=== PATIENT | male | born 1950 | race Caucasian/White ===

== ENCOUNTER 2019-05-24 08:00 | Inpatient (IN) | payer MEDICARE ==
[2019-06-24] MEDS ORDERED: Scopolamine 1.5 MG Transdermal Patch TOP ONE (06:00)
[2019-06-24] MEDS ORDERED: Gabapentin 300 MG Cap PO ONE (06:00)
[2019-06-24] MEDS ORDERED: Dextrose 5%-Lactated Ringers 1,000 ML IV SCH ×2 (06:00→10:45)
[2019-06-24] MEDS ORDERED: Celecoxib 200 MG Cap PO ONE (06:00)
[2019-06-24] MEDS ORDERED: Acetaminophen 500 MG Tab PO ONE (06:00)
[2019-06-24] MEDS ORDERED: cefOXitin 2 GM Vial ONE (06:45)
[2019-06-24] MEDS ORDERED: Bupivacaine 0.5%/EPINEPHrine 1:200,000 50 ML MDV ONE (07:01)
[2019-06-24] MEDS ORDERED: Midazolam 1 MG/ML 2 ML SDV ONE (07:09)
[2019-06-24] MEDS ORDERED: Propofol 200 MG/20 ML SDV ONE (07:10)
[2019-06-24] MEDS ORDERED: Glycopyrrolate 0.2 MG/ML 5 ML MDV ONE (07:10)
[2019-06-24] MEDS ORDERED: fentaNYL 250 MCG/5 ML SDV ONE (07:10)
[2019-06-24] MEDS ORDERED: Ondansetron 4 MG/2 ML SDV ONE (07:10)
[2019-06-24] MEDS ORDERED: Neostigmine Methylsulfate 1 MG/ML 5 ML Syringe ONE (07:10)
[2019-06-24] MEDS ORDERED: Dexamethasone 4 MG/ML SDV ONE (07:10)
[2019-06-24] MEDS ORDERED: Rocuronium 50 MG/5 ML Vial ONE (07:10)
[2019-06-24] MEDS ORDERED: Succinylcholine 200 MG/10 ML MDV ONE (07:10)
[2019-06-24] MEDS ORDERED: cefOXitin 2 GM in Sodium Chloride 0.9% 50 ML IV ONE (07:15)
[2019-06-24] MEDS ORDERED: Magnesium Sulfate 3.9 GM in Sodium Chloride 0.9% 100 ML IV SCH (07:30)
[2019-06-24] MEDS ORDERED: Ketamine 50 MG in Sodium Chloride 0.9% 49.5 ML IV SCH (07:30)
[2019-06-24] MEDS ORDERED: Ketamine 500 MG/5 ML MDV IV SCH (07:30)
[2019-06-24] MEDS ORDERED: Sugammadex Sodium 200 MG/2 ML VIAL ONE (07:41)
[2019-06-24] MEDS ORDERED: ePHEDrine 50 MG/ML SDV ONE (08:17)
[2019-06-24] MEDS ORDERED: hydrOXYzine HCL 100 MG/2 ML SDV IM ONE (09:20)
[2019-06-24] MEDS ORDERED: Insulin Lispro 100 Unit/ML 3 ML KwikPen SUBCUT ONE (09:30)
[2019-06-24] MEDS ORDERED: Glucagon,Human Recombinant 1 MG Vial IM PRN (10:43)
[2019-06-24] MEDS ORDERED: 50% Dextrose in Water 50 ML Syringe IVPUSH PRN (10:43)
[2019-06-24] MEDS ORDERED: Cyclobenzaprine 10 MG Tab PO PRN (10:43)
[2019-06-24] MEDS ORDERED: Ondansetron 4 MG/2 ML SDV IVPUSH PRN (10:43)
[2019-06-24] MEDS ORDERED: Acetaminophen 500 MG Tab PO PRN (10:43)
[2019-06-24] MEDS ORDERED: diphenhydrAMINE 50 MG/ML SDV IVPUSH PRN (10:43)
[2019-06-24] MEDS ORDERED: HYDROmorphone 0.5 MG/0.5 ML Syringe IVPUSH PRN (10:43)
[2019-06-24] MEDS ORDERED: Insulin Lispro 100 Unit/ML 3 ML KwikPen SUBCUT PRN (10:43)
[2019-06-24] MEDS ORDERED: Metoclopramide 10 MG/2 ML SDV IVPUSH PRN (10:43)
[2019-06-24] MEDS ORDERED: Labetalol 20 MG/4 ML Syringe IVPUSH PRN (10:43)
[2019-06-24] MEDS ORDERED: HYDROmorphone 1 MG/ML Syringe IV PRN (10:43)
[2019-06-24] MEDS ORDERED: hydrOXYzine HCL 100 MG/2 ML SDV IM PRN (10:43)
[2019-06-24] MEDS: Lactated Ringers 1,000 ML IV SCH (11:42)
[2019-06-24] MEDS ORDERED: cefOXitin 2 GM in Sodium Chloride 0.9% 50 ML IV SCH (14:00)
[2019-06-24] MEDS: oxyCODONE 5 MG Tab PO PRN ×2 (14:28→21:39)
[2019-06-24] MEDS: cefOXitin 2 GM in Premix Bag 1 BAG IV SCH ×2 (14:28→20:05)
[2019-06-24] MEDS: Gabapentin 250 MG/5 ML Solution ML 470 ML Bottle PO SCH ×2 (14:28→21:38)
[2019-06-24] MEDS: Pantoprazole 40 MG Vial IVPUSH SCH (14:28)
[2019-06-24] MEDS: Acetaminophen 500 MG Tab PO SCH ×2 (14:29→21:44)
[2019-06-24] MEDS: MVI, Adult with Vitamin K 10 ML, Thiamine 200 MG, Chromium/Copper/Mang/Selen/Zn 1 ML in... IV SCH ×4 (17:56)
[2019-06-24] MEDS: Heparin Sodium 5,000 Units/ML Vial SUBCUT SCH (17:56)
[2019-06-24] MEDS: hydrALAZINE 25 MG Tab PO SCH (21:39)
[2019-06-24] MEDS: Labetalol 100 MG Tab PO SCH (21:44)
[2019-06-25] MEDS: cefOXitin 2 GM in Premix Bag 1 BAG IV SCH (02:45)
[2019-06-25] MEDS ORDERED: Iopamidol 612 MG/ML 50 ML SDV PO STA (02:52)
[2019-06-25] MEDS: Heparin Sodium 5,000 Units/ML Vial SUBCUT SCH ×2 (03:00→15:58)
[2019-06-25] MEDS: Lactated Ringers 1,000 ML IV SCH ×2 (03:36→13:02)
--- NOTE | 2019-06-25 04:27 | CRLCR ---
Indication: Status post Prashanth-en-Y Technique: Two-view abdomen Comparison: None Findings/Impression: : Two views of the abdomen were obtained after administration of oral contrast material. Oral contrast is seen within the distal esophagus, gastric pouch, and proximal small bowel. No evidence for extravasated oral contrast on the static images. SIDNEY drain projects in the left upper quadrant. Status post ORIF lower lumbar spine. Dictated by Nguyen Cruz MD @ Jun 25 2019 4:23AM Signed by Dr. Nguyen Cruz @ Jun 25 2019 4:25AM
[2019-06-25] MEDS: Acetaminophen 500 MG Tab PO SCH ×3 (05:21→21:37)
[2019-06-25] MEDS: hydrALAZINE 25 MG Tab PO SCH ×2 (08:40→21:34)
[2019-06-25] MEDS: Celecoxib 200 MG Cap PO SCH ×2 (08:41→21:37)
[2019-06-25] MEDS: Aspirin 81 MG Tab.EC PO SCH (08:41)
[2019-06-25] MEDS: Labetalol 100 MG Tab PO SCH ×2 (08:42→21:37)
[2019-06-25] MEDS: NIFEdipine 30 MG Tab.ER PO SCH (08:42)
[2019-06-25] MEDS: Gabapentin 250 MG/5 ML Solution ML 470 ML Bottle PO SCH ×3 (08:43→21:45)
[2019-06-25] MEDS ORDERED: AMILORIDE PO SCH (09:00)
[2019-06-25] MEDS ORDERED: HYDROmorphone 2 MG Tab PO PRN (10:27)
[2019-06-25] MEDS ORDERED: Dextrose 5%-Lactated Ringers 1,000 ML IV SCH (10:30)
[2019-06-25] MEDS: SCOPOLAMINE PATCH CHECK TOP SCH (10:30)
[2019-06-25] MEDS ORDERED: Lactated Ringers 1,000 ML IV SCH (10:30)
[2019-06-25] MEDS: AMILORIDE 5 MG PO SCH (11:10)
[2019-06-25] MEDS: Pantoprazole 40 MG Vial IVPUSH SCH (15:59)
[2019-06-25] MEDS: MVI, Adult with Vitamin K 10 ML, Thiamine 200 MG, Chromium/Copper/Mang/Selen/Zn 1 ML in... IV SCH ×4 (16:14)
[2019-06-25] MEDS ORDERED: Gabapentin 300 MG Cap PO ONE (21:46)
[2019-06-26] MEDS: Heparin Sodium 5,000 Units/ML Vial SUBCUT SCH (03:15)
[2019-06-26] MEDS: Acetaminophen 500 MG Tab PO SCH (04:59)
[2019-06-26] MEDS: Aspirin 81 MG Tab.EC PO SCH (08:34)
[2019-06-26] MEDS: Celecoxib 200 MG Cap PO SCH (08:34)
[2019-06-26] MEDS: hydrALAZINE 25 MG Tab PO SCH (08:34)
[2019-06-26] MEDS: AMILORIDE 5 MG PO SCH (08:35)
[2019-06-26] MEDS: Labetalol 100 MG Tab PO SCH (08:35)
[2019-06-26] MEDS: NIFEdipine 30 MG Tab.ER PO SCH (08:35)
[2019-06-26] MEDS: Gabapentin 250 MG/5 ML Solution ML 470 ML Bottle PO SCH (08:42)
[2019-06-26] MEDS ORDERED: Cyanocobalamin (Vitamin B12) 1,000 MCG/ML SDV IM ONE (09:00)
[2019-06-26] MEDS: SCOPOLAMINE PATCH CHECK TOP SCH (09:44)
[2019-06-26] MEDS ORDERED: Magnesium Hydroxide 400 MG/5 ML Susp 30 ML Cup PO ONE (10:00)
--- NOTE | 2019-06-26 14:50 | PN ---
DATE OF SERVICE: 06/25/2019 The patient has been afebrile with stable vital signs, status post a Prashanth-en-Y gastric bypass yesterday. We are little bit worried about his renal function, but his urine output has been satisfactory, and creatinine is down from 1.6 to 1.4 today compared to yesterday. is up a little bit at 2.6 and that will be rechecked tomorrow. Otherwise, he will go to a step-2 diet today. Maximize activity and work with pulmonary toilet. He is not requiring any additional pain medication. The blood sugars are beginning to come into good control with the last 2 blood sugars being 180 and most recently 130 off the metformin. We will switch his IV to start the LR today and that will bring things down some more. He may be ready for discharge home tomorrow. Karri Viveros MD /[id number]
--- NOTE | 2019-06-26 14:50 | DISCH ---
FINAL DIAGNOSES: 1. Morbid obesity. 2. Marked hepatomegaly. 3. Paraesophageal diaphragmatic hernia associated with mediastinal lipoma. 4. Ischemic area of gastric pouch, status post pouch formation, requiring additional gastric resection. SECONDARY DIAGNOSES: 1. Type 2 diabetes mellitus. 2. Degenerative lumbar disk disease, status post spinal fusion. 3. History of hypertension. 4. Obstructive sleep apnea. 5. Chronic kidney disease, stage 3. OPERATIVE PROCEDURES: Done on 06/24/2019, diagnostic laparoscopy with: 1. Laparoscopic Prashanth-en-Y gastric bypass along with gastroenterostomy. 2. Ken-Cut needle liver biopsy. 3. Repair of paraesophageal diaphragmatic hernia. 4. Excision of mediastinal lipoma. 5. Partial gastrectomy. SUMMARY: This is a 68-year-old presenting with longstanding morbid obesity and increasingly significant comorbidities. After preoperative evaluation and discussion, he wished to proceed with a gastric bypass procedure. This along with the additional procedures was undertaken on 06/24/2019. Postoperatively, he has had no significant problems. He is tolerating a step-2 diet without difficulty. He is off the metformin and already is essentially in remission with his diabetes with the last 2 blood sugars being between 94 and 120, while maintaining oral intake. He will be discharged home, taking his usual medications other than NovoLog and metformin. Otherwise, he will be on Celebrex 200 mg daily x3, then daily along with Tylenol for pain. He will be instructed to stay on a step-2 diet until the first appointment, which will be with Luciana Gaitan at [facility] on 07/04/2019. A BMP will be obtained at that time. Preoperatively, the patient's creatinine was 1.6, on discharge today is 1.3. We will check a BMP at the time of his followup appointment.
--- NOTE | 2019-07-03 15:19 | OR ---
DATE OF PROCEDURE: 06/24/2019 SURGEON: Karri Viveros MD PREOPERATIVE DIAGNOSIS: Morbid obesity. POSTOPERATIVE DIAGNOSES: 1. Morbid obesity. 2. Marked hepatomegaly. 3. Paraesophageal diaphragmatic hernia. 4. Mediastinal lipoma. 5. Segment of stomach ischemic after pouch formation. OPERATIVE PROCEDURES: 1. Laparoscopic Prashanth-en-Y gastric bypass with long limb gastroenterostomy (57600). 2. Ken-Cut needle liver biopsy (29657). 3. Repair of paraesophageal diaphragmatic hernia (62630). 4. Excision of mediastinal lipoma (23875). 5. Partial gastrectomy (53488). ANESTHESIA: General. CHLORINATION OPERATOR: Luciana Gaitan PA-C INDICATIONS FOR PROCEDURE: This is a 68-year-old male presenting with longstanding morbid obesity and increasingly significant comorbidities. After preoperative evaluation and discussion, he wished to proceed with a gastric bypass procedure. Potential risks of procedure including bleeding, infection, leaks from various GI tract closures, and problems with bowel obstruction over time as well as possibility of cardiopulmonary, septic, or hemorrhagic complications leading to were discussed, and the patient wishes to proceed. DETAILS OF PROCEDURE: The patient was taken to the operating room after general endotracheal anesthesia was induced, placed in a lithotomy position, and the abdomen prepped and draped. At 15 cm inferior and 5 cm left of the xiphoid process, transverse incision was made. The peritoneal cavity entered under direct vision with an Optiview trocar, inflated to 15 mmHg pressure with CO2. Laparoscope was reinserted, no underlying trocar insertion site injuries were seen. Following this, 5 additional trocars were placed across the upper mid abdomen. Bilateral transversus abdominis plane blocks were placed. The patient was noted to have marked hepatomegaly with liver volume being roughly 2 to 3 times normal and grossly fatty infiltrated. Ken-Cut needle biopsy was obtained from left lobe of liver. Minimal bleeding from the biopsy sites was controlled with electrocautery. At this point, the omentum was divided in the midline up to the level of the transverse colon. This allowed identification of the small bowel at the ligament of Treitz. Small bowel was then traced out 150 cm distal to that point, was divided transversely with a JAYDEN stapler. Small bowel was then traced out an additional 200 cm where [id number] enteroenterostomy was accomplished with internal firing of the Endo-JAYDEN 60 mm stapler. Common opening was then closed transversely with the same stapler and the angles anastomosed. Mesenteric defect approximated with some 0 Ethibond stitch along with 4 mL of fibrin sealant. The divided end of the Prashanth limb was then from the mesentery for a few centimeters which allowed an antecolic position of the Prashanth limb up to the level of the gastroesophageal junction without tension. The liver was then retracted anteriorly. The patient was noted to have moderate-sized paraesophageal diaphragmatic hernia that contained some perigastric fat and gastric fundus along with an edge of omentum. This was reduced and the peritoneum overlying the hernia sites was reflected downward. During the course of the dissection, mediastinal lipoma was encountered, and this was excised and sent for histologic evaluation. Anterior repair of the diaphragmatic hernia was then accomplished with 0 Ethibond sutures reinforced with PTFE pledgets. The gastrointestinal balloon catheter was then inflated to 15 mL and pulled up snugly against the EG junction. Gastric wall over the apex balloon was then marked with electrocautery and catheter deflated and pulled up from the esophagus. The lesser omental tissue adjacent to the gastric cardia was then incised allowing dissection behind the stomach at that level. Pouch formation was initiated with transverse firing of the JAYDEN stapler at the level of the cauterized alexis in the gastric pouch, and the pouch formation was completed with additional firings of JAYDEN stapler up to and through the angle of His. Upon completion of the pouch, both staple lines were noted to be intact. A portion of the stomach was noted to be ischemic in appearance and given this it was excised by means of additional JAYDEN staple firings x2 and that specimen delivered from the field. The anvil of a 21 mm EEA stapler was attached to a [place] sump type tube. The latter was brought down through the mouth and taken out through a small opening in the gastric pouch allowing the anvil to be likewise pulled down to within the gastric pouch. The divided end of the Prashanth limb was then opened and main body of EEA stapler passed several centimeters in the lumen of small bowel, brought up the anvil, and united with it, thus creating the gastrojejunostomy. Upon removal of stapler, double donuts of mucosa were noted within it. Small bowel was closed off with a vascular staple line. Gastrojejunostomy was reinforced with some 3-0 Vicryl seromuscular stitch along with fibrin sealant. Leak test was accomplished with injection of 120 mL of air in the gastric pouch while it was submerged with cefoxitin-containing saline solution. No leaks were identified. A single Devan- Jennings drain was then placed through the left lateral trocar site and positioned adjacent to the gastrojejunostomy, from there up into the splenic fossa. Trocars were then sequentially removed. The peritoneal cavity deflated. The incision was closed with some 4-0 Vicryl skin stitch along with a stitch also being used to fix the drain. The patient was taken to the recovery room in satisfactory condition. Physician assistant professor of drama, Luciana Gaitan PA-C, played an essential role in assisting in this case, helping to position the patient, retract structures as needed as well as suturing and cutting sutures when indicated. Her presence improved patient safety and decreased the operative time. Karri Viveros MD /[id number]
== END 2019-06-26 10:10 | disposition home or self-care (01) | DRG 621 ==
LOC: JP.SDSSCHI 06-24 05:02 → JP.SDS 06-24 05:02 → EDSTATUS 06-24 07:30 → JP.2SS 06-24 09:00
PROVIDERS: ADMIT Surgery; ATTEND Surgery
PROC: 0D164ZA Bypass Stomach to Jejunum, Percutaneous Endoscopic Approach (ICD-10-PCS; principal; 2019-06-24)
PROC: 0FB24ZX Excision of Left Lobe Liver, Percutaneous Endoscopic Approach, Diagnostic (ICD-10-PCS; 2019-06-24)
PROC: 0BQT4ZZ Repair Diaphragm, Percutaneous Endoscopic Approach (ICD-10-PCS; 2019-06-24)
PROC: 0JB63ZZ Excision of Chest Subcutaneous Tissue and Fascia, Percutaneous Approach (ICD-10-PCS; 2019-06-24)
PROC: 0DB64ZZ Excision of Stomach, Percutaneous Endoscopic Approach (ICD-10-PCS; 2019-06-24)
DX: E66.01 Morbid (severe) obesity due to excess calories (principal); R16.0 Hepatomegaly, not elsewhere classified; K44.9 Diaphragmatic hernia without obstruction or gangrene; D17.4 Benign lipomatous neoplasm of intrathoracic organs; K31.9 Disease of stomach and duodenum, unspecified; M51.36 Other intervertebral disc degeneration, lumbar region; G47.33 Obstructive sleep apnea (adult) (pediatric); N18.3 Chronic kidney disease, stage 3 (moderate); E11.22 Type 2 diabetes mellitus with diabetic chronic kidney disease; I12.9 Hypertensive chronic kidney disease with stage 1 through stage 4 chronic kidney disease, or unspecified chronic kidney disease; Z79.82 Long term (current) use of aspirin; Z79.899 Other long term (current) drug therapy; Z98.1 Arthrodesis status; Z68.42 Body mass index [BMI] 45.0-49.9, adult
CPT/HCPCS: 36415; 74240; 80048; 82962; 83735; 83880; 84100; 86850; 86900; 86901; 88304; 88307; 88313; 94762; A9270-GY; C9113; J0171; J0330; J0694; J1100; J1170; J1644; J1815; J2250; J2405; J2704; J2710; J2795; J3010; J3410; J3411; J3420; J3475; J3490; J7050; J7120; J7121; Q9967

== ENCOUNTER 2019-09-06 15:02 | Inpatient (IN) | payer MEDICARE ==
[2019-09-06] MEDS ORDERED: Sodium Chloride 0.9% 1,000 ML IV SCH ×3 (16:15→18:49)
--- NOTE | 2019-09-06 16:42 | EDM.PDOC ---
ED HPI GENERAL MEDICAL PROBLEM - General Chief Complaint: General Stated Complaint: RT SHOULDER PAIN, NO APPETITE Time Seen by Provider: 09/06/19 16:36 Source of Information: Reports: Patient History Limitations: Reports: No Limitations - History of Present Illness INITIAL COMMENTS - FREE TEXT/NARRATIVE: pt arrived with rt shoulder pain. He is not having a history of a injury. He has gotten progressively weaker. He has been doing alot of vomiting. He does keep water down a few soft foods. He had a RNY Jun 24 and he has lost about 90 lbs. He is not eating alot of calories. He is having to walk with a walker recently because he is so weak. Onset: Gradual Duration: Day(s): Location: Reports: Generalized Associated Symptoms: Reports: Loss of Appetite, Nausea/Vomiting, Weakness denies Pain Score (Numeric/FACES): 0 - Related Data Allergies Allergy/AdvReac Type Severity Reaction Status Date / Time No Known Allergies Allergy Verified 09/06/19 15:37 Home Meds: Home Meds Aspirin 81 mg PO DAILY 06/21/19 [History] Cholecalciferol (Vitamin D3) [Vitamin D3] 2,000 unit PO BID 06/21/19 [History] Furosemide 40 mg PO .MWF 06/21/19 [History] Labetalol [Normodyne] 300 mg PO BID 06/21/19 [History] NIFEdipine [Nifedipine ER] 60 mg PO DAILY 06/21/19 [History] Potassium Chloride [Klor-Con M20] 20 meq PO .MWF 06/21/19 [History] aMILoride [Midamor] 5 mg PO DAILY 06/21/19 [History] atorvaSTATin [Lipitor] 20 mg PO BEDTIME 06/21/19 [History] hydrALAZINE HCl [Hydralazine HCl] 50 mg PO BID 06/21/19 [History] Ferrous Sulfate 325 mg PO DAILY 09/06/19 [History] Past Medical History HEENT History: Reports: Impaired Vision Cardiovascular History: Reports: High Cholesterol, Hypertension Respiratory History: Reports: Sleep Apnea Genitourinary History: Reports: Renal Calculus Endocrine/Metabolic History: Reports: Diabetes, Type II, Vitamin D Deficiency - Infectious Disease History Infectious Disease History: Reports: Chicken Pox, Measles, Mumps - Past Surgical History GI Surgical History: Reports: Bariatric Procedure Musculoskeletal Surgical History: Reports: Other (See Below) Other Musculoskeletal Surgeries/Procedures:: Laminectomy Social & Family History - Family History Family Medical History: Noncontributory - Tobacco Use Smoking Status *Q: Never Smoker Second Hand Smoke Exposure: No - Caffeine Use Caffeine Use: Reports: None - Recreational Drug Use Recreational Drug Use: No ED ROS GENERAL - Review of Systems Review Of Systems: See Below Constitutional: Reports: Malaise, Weakness, Decreased Appetite, Weight Loss HEENT: Reports: No Symptoms Respiratory: Reports: Shortness of Breath Cardiovascular: Reports: No Symptoms Endocrine: Reports: No Symptoms GI/Abdominal: Reports: Nausea, Vomiting : Reports: No Symptoms Musculoskeletal: Reports: Other (marked muscle weakness) Skin: Reports: No Symptoms ED EXAM, GENERAL - Physical Exam Exam: See Below Free Text/Narrative:: pt arrived with marked weakness. He is having pain in the rt shoulder area. He is now walking with a walker because he is so weak. Exam Limited By: No Limitations General Appearance: Alert, Anxious, Moderate Distress Ears: Normal TMs Nose: Normal Inspection Throat/Mouth: Normal Inspection Head: Atraumatic Neck: Normal Inspection Respiratory/Chest: No Respiratory Distress Cardiovascular: Regular Rate, Rhythm GI/Abdominal: Soft, Non-Tender (Male) Exam: Deferred Rectal (Males) Exam: Deferred Back Exam: Normal Inspection Extremities: Normal Inspection Neurological: Alert, Oriented, Normal Cognition Psychiatric: Anxious Course - Vital Signs Last Recorded V/S: Last Vital Signs Temp 36.1 C 09/06/19 15:45 Pulse 65 09/06/19 15:45 Resp 21 H 09/06/19 15:45 BP 105/54 L 09/06/19 15:45 Pulse Ox 95 09/06/19 15:45 - Orders/Labs/Meds Orders: Active Orders 24 hr Category Date Time Status EKG Documentation Completion [RC] ASDIRECTED Care 09/06/19 16:39 Active Cervical Spine Min 4V [CR] Stat Exams 09/06/19 16:42 Taken Shoulder Comp Rt [CR] Stat Exams 09/06/19 16:30 Taken UA W/MICROSCOPIC [URIN] Urgent Lab 09/06/19 15:23 Ordered Sodium Chloride 0.9% [Normal Saline] 1,000 ml Med 09/06/19 16:15 Active IV ASDIRECTED Sodium Chloride 0.9% [Normal Saline] 1,000 ml Med 09/06/19 16:45 Active IV ASDIRECTED EKG 12 Lead [EK] Routine Ther 09/06/19 16:39 Ordered Medication Orders Sodium Chloride (Normal Saline) 1,000 mls @ 999 mls/hr IV ASDIRECTED SUNG Last Admin: 09/06/19 16:18 Dose: 999 mls/hr Sodium Chloride (Normal Saline) 1,000 mls @ 999 mls/hr IV ASDIRECTED SUNG Labs: Laboratory Tests 09/06/19 09/06/19 09/06/19 Range/Units 15:41 15:41 15:41 WBC 9.5 (4.5-11.0) K/uL RBC 3.97 L (4.30-5.90) M/uL Hgb 11.3 L (12.0-15.0) g/dL Hct 34.9 L (40.0-54.0) % MCV 88 (80-98) fL MCH 29 (27-31) pg MCHC 32 (32-36) % Plt Count 405 H (150-400) K/uL Neut % (Auto) 71 H (36-66) % Lymph % (Auto) 17 L (24-44) % Edwards % (Auto) 11 H (2-6) % Eos % (Auto) 1 L (2-4) % Baso % (Auto) 0 (0-1) % Sodium 134 L (140-148) mmol/L Potassium 3.7 (3.6-5.2) mmol/L Chloride 98 L (100-108) mmol/L Carbon Dioxide 23 (21-32) mmol/L Anion Gap 16.7 H (5.0-14.0) mmol/L BUN 49 H D (7-18) mg/dL Creatinine 3.1 H D (0.8-1.3) mg/dL Est Cr Clr Drug Dosing 20.29 mL/min Estimated GFR (MDRD) 20 L (>60) Glucose 102 (74-106) mg/dL Calcium > 14.0 H* D (8.5-10.1) mg/dL Magnesium 1.8 (1.8-2.4) mg/dL Ferritin 469 H (8-388) ng/ml Total Bilirubin 0.9 (0.2-1.0) mg/dL AST 14 L (15-37) U/L ALT 20 (12-78) U/L Alkaline Phosphatase 119 H (46-116) U/L C-Reactive Protein (0.0-0.3) mg/dL Total Protein 7.0 (6.4-8.2) g/dL Albumin 2.9 L (3.4-5.0) g/dL Globulin 4.1 H (2.3-3.5) g/dL Albumin/Globulin Ratio 0.7 L (1.2-2.2) TSH, Ultra Sensitive (0.358-3.740) uIU/mL 09/06/19 09/06/19 Range/Units 15:44 16:33 WBC (4.5-11.0) K/uL RBC (4.30-5.90) M/uL Hgb (12.0-15.0) g/dL Hct (40.0-54.0) % MCV (80-98) fL MCH (27-31) pg MCHC (32-36) % Plt Count (150-400) K/uL Neut % (Auto) (36-66) % Lymph % (Auto) (24-44) % Edwards % (Auto) (2-6) % Eos % (Auto) (2-4) % Baso % (Auto) (0-1) % Sodium (140-148) mmol/L Potassium (3.6-5.2) mmol/L Chloride (100-108) mmol/L Carbon Dioxide (21-32) mmol/L Anion Gap (5.0-14.0) mmol/L BUN (7-18) mg/dL Creatinine (0.8-1.3) mg/dL Est Cr Clr Drug Dosing mL/min Estimated GFR (MDRD) (>60) Glucose (74-106) mg/dL Calcium (8.5-10.1) mg/dL Magnesium (1.8-2.4) mg/dL Ferritin (8-388) ng/ml Total Bilirubin (0.2-1.0) mg/dL AST (15-37) U/L ALT (12-78) U/L Alkaline Phosphatase (46-116) U/L C-Reactive Protein 10.75 H (0.0-0.3) mg/dL Total Protein (6.4-8.2) g/dL Albumin (3.4-5.0) g/dL Globulin (2.3-3.5) g/dL Albumin/Globulin Ratio (1.2-2.2) TSH, Ultra Sensitive 1.465 (0.358-3.740) uIU/mL Meds: Medications Generic Name Dose Route Start Last Admin Trade Name Freq PRN Reason Stop Dose Admin Sodium Chloride 1,000 mls @ 999 mls/hr 09/06/19 16:15 09/06/19 16:18 Normal Saline IV 999 mls/hr ASDIRECTED SUNG Administration Sodium Chloride 1,000 mls @ 999 mls/hr 09/06/19 16:45 Normal Saline IV ASDIRECTED SUNG - Re-Assessments/Exams Free Text/Narrative Re-Assessment/Exam: 09/06/19 17:15 pt has a Ca of greater than 10. He has rt shoulder pain. He has severe degenerative changes in the lower cerviclal area. He is very dry. His creatnine is 3.1. He previously had a creanine of 1.3 or the highes 1.6. Pt is vomiting and he may need to be dilated. Departure - Departure Time of Disposition: 17:18 Disposition: Admitted As Inpatient 66 Condition: Fair Clinical Impression: Hypercalcemia, Dehydration, Renal insufficiency, Degenerative disc disease, cervical, H/O gastric bypass - Discharge Information Referrals: Shadi Tran MD [Primary Care Provider] - Forms: ED Department Discharge Care Plan Goals: admit to Dr Rodriguez Sepsis Event Note - Evaluation Sepsis Screening Result: No Definite Risk - Focused Exam Vital Signs: Vital Signs Temp Pulse Resp BP Pulse Ox 09/06/19 15:45 36.1 C 65 21 H 105/54 L 95 09/06/19 15:19 36.1 C 65 21 H 105/54 L 95 Date Exam was Performed: 09/06/19 Time Exam was Performed: 17:15 - My Orders Last 24 Hours: My Active Orders 09/06/19 15:23 UA W/MICROSCOPIC [URIN] Urgent 09/06/19 16:15 Sodium Chloride 0.9% [Normal Saline] 1,000 ml IV ASDIRECTED 09/06/19 16:30 Shoulder Comp Rt [CR] Stat 09/06/19 16:39 EKG Documentation Completion [RC] ASDIRECTED EKG 12 Lead [EK] Routine 09/06/19 16:42 Cervical Spine Min 4V [CR] Stat 09/06/19 16:45 Sodium Chloride 0.9% [Normal Saline] 1,000 ml IV ASDIRECTED - Assessment/Plan Last 24 Hours: My Active Orders 09/06/19 15:23 UA W/MICROSCOPIC [URIN] Urgent 09/06/19 16:15 Sodium Chloride 0.9% [Normal Saline] 1,000 ml IV ASDIRECTED 09/06/19 16:30 Shoulder Comp Rt [CR] Stat 09/06/19 16:39 EKG Documentation Completion [RC] ASDIRECTED EKG 12 Lead [EK] Routine 09/06/19 16:42 Cervical Spine Min 4V [CR] Stat 09/06/19 16:45 Sodium Chloride 0.9% [Normal Saline] 1,000 ml IV ASDIRECTED
[2019-09-06] MEDS ORDERED: Calcitonin (Salmon) 200 Units/ML 2 ML MDV SUBCUT ONE ×2 (17:36→20:15)
[2019-09-06] MEDS ORDERED: Thiamine 200 MG in Sodium Chloride 0.9% 100 ML IV ONE (18:08)
[2019-09-06] MEDS ORDERED: MVI, Adult with Vitamin K 10 ML, Thiamine 100 MG, Folic Acid 1 MG, Magnesium Sulfate 3 ... IV SCH ×5 (18:15)
[2019-09-06] MEDS ORDERED: Enoxaparin 30 MG/0.3 ML Syringe SUBCUT SCH (18:49)
[2019-09-06] MEDS ORDERED: Sodium Chloride 0.9% 10 ML Syringe FLUSH PRN (18:49)
[2019-09-06] MEDS ORDERED: Acetaminophen 325 MG Tab PO PRN (18:49)
[2019-09-06] MEDS ORDERED: Ondansetron 4 MG/2 ML SDV IV PRN (18:49)
--- NOTE | 2019-09-06 18:51 | PCM.HP.2 ---
H&P History of Present Illness - General Date of Service: 09/06/19 Admit Problem/Dx: Admission Diagnosis/Problem Admission Diagnosis/Problem Hypercalcemia Source of Information: Patient, Old Records, Provider, RN Notes Reviewed History Limitations: Reports: No Limitations - History of Present Illness Initial Comments - Free Text/Narative: Mr. Gudino is a 69 year old gentleman who was admitted through the emergency department with progressive weakness, nausea, retching, and underlying severe hypercalcemia and acute kidney injury. He underwent gastric bypass surgery approximately 2-1/2 months ago and did well for the first month and a half. Over the last month he has had ongoing difficulty with nausea and retching, very poor oral intake. Previously he had had chronic kidney disease stage III and a normal calcium level. He estimates that he had lost almost 100 pounds over the last 2-1/2 months. He has become progressively more weak, and has noted intermittent episodes of confusion. On evaluation in the emergency department today his creatinine is 3 with a GFR of 20 and a calcium level of greater than 14. denies Pain Score (Numeric/FACES): 0 - Related Data Allergies/Adverse Reactions: Allergies Allergy/AdvReac Type Severity Reaction Status Date / Time No Known Allergies Allergy Verified 09/06/19 15:37 Home Medications: Home Meds Aspirin 81 mg PO DAILY 06/21/19 [History] Cholecalciferol (Vitamin D3) [Vitamin D3] 2,000 unit PO BID 06/21/19 [History] Furosemide 40 mg PO .MWF 06/21/19 [History] Labetalol [Normodyne] 300 mg PO BID 06/21/19 [History] NIFEdipine [Nifedipine ER] 60 mg PO DAILY 06/21/19 [History] Potassium Chloride [Klor-Con M20] 20 meq PO .MWF 06/21/19 [History] aMILoride [Midamor] 5 mg PO DAILY 06/21/19 [History] atorvaSTATin [Lipitor] 20 mg PO BEDTIME 06/21/19 [History] hydrALAZINE HCl [Hydralazine HCl] 50 mg PO BID 06/21/19 [History] Ferrous Sulfate 325 mg PO DAILY 09/06/19 [History] Past Medical History HEENT History: Reports: Impaired Vision Cardiovascular History: Reports: High Cholesterol, Hypertension Respiratory History: Reports: Sleep Apnea Genitourinary History: Reports: Renal Calculus Endocrine/Metabolic History: Reports: Diabetes, Type II, Vitamin D Deficiency - Infectious Disease History Infectious Disease History: Reports: Chicken Pox, Measles, Mumps - Past Surgical History GI Surgical History: Reports: Bariatric Procedure Musculoskeletal Surgical History: Reports: Other (See Below) Other Musculoskeletal Surgeries/Procedures:: Laminectomy Social & Family History - Family History Family Medical History: Noncontributory - Tobacco Use Smoking Status *Q: Never Smoker Second Hand Smoke Exposure: No - Caffeine Use Caffeine Use: Reports: None - Recreational Drug Use Recreational Drug Use: No H&P Review of Systems - Review of Systems: Review Of Systems: See Below General: Reports: Malaise, Weakness, Fatigue, Weight Loss. Denies: Fever, Chills HEENT: Reports: No Symptoms Pulmonary: Reports: No Symptoms Cardiovascular: Reports: No Symptoms Gastrointestinal: Reports: Nausea, Vomiting. Denies: Abdominal Pain, Difficulty Swallowing, Distension, Hematemesis, Hematochezia, Melena Genitourinary: Reports: No Symptoms Musculoskeletal: Reports: No Symptoms Skin: Reports: No Symptoms Psychiatric: Reports: No Symptoms Neurological: Reports: No Symptoms Hematologic/Lymphatic: Reports: No Symptoms Immunologic: Reports: No Symptoms Exam - Exam Exam: See Below - Vital Signs Vital Signs: Last Vital Signs Temp 96.9 F 09/06/19 15:45 Pulse 65 09/06/19 15:45 Resp 21 H 09/06/19 15:45 BP 105/54 L 09/06/19 15:45 Pulse Ox 95 09/06/19 15:45 Weight: 204 lb 9.423 oz - Exam Quality Assessment: DVT Prophylaxis General: Alert, Oriented, Cooperative, Mild Distress HEENT: Conjunctiva Clear, Hearing Intact, Normal Nasal Septum, Posterior Pharynx Clear, Pupils Equal. No: Mucosa Moist & Kings Neck: Supple, Trachea Midline, +2 Carotid Pulse wo Bruit Lungs: Clear to Auscultation, Normal Respiratory Effort Cardiovascular: Regular Rate, Regular Rhythm, Normal S1, Normal S2. No: Systolic Murmur, Diastolic Murmur GI/Abdominal Exam: Soft, Non-Tender, No Organomegaly, No Distention Back Exam: Normal Inspection, Full Range of Motion Extremities: Non-Tender, No Pedal Edema Skin: Warm, Dry, Intact Neurological: Cranial Nerves Intact, Strength Equal Bilateral, Normal Speech, Normal Tone, Sensation Intact. No: Focal Deficit Neuro Extensive - Mental Status: Alert, Oriented x3, Normal Mood/Affect, Normal Cognition, Memory Intact - Patient Data Lab Results Last 24 hrs: Laboratory Results - last 24 hr 09/06/19 09/06/19 09/06/19 Range/Units 15:41 15:41 15:41 WBC 9.5 (4.5-11.0) K/uL RBC 3.97 L (4.30-5.90) M/uL Hgb 11.3 L (12.0-15.0) g/dL Hct 34.9 L (40.0-54.0) % MCV 88 (80-98) fL MCH 29 (27-31) pg MCHC 32 (32-36) % Plt Count 405 H (150-400) K/uL Neut % (Auto) 71 H (36-66) % Lymph % (Auto) 17 L (24-44) % Kinney % (Auto) 11 H (2-6) % Eos % (Auto) 1 L (2-4) % Baso % (Auto) 0 (0-1) % Sodium 134 L (140-148) mmol/L Potassium 3.7 (3.6-5.2) mmol/L Chloride 98 L (100-108) mmol/L Carbon Dioxide 23 (21-32) mmol/L Anion Gap 16.7 H (5.0-14.0) mmol/L BUN 49 H D (7-18) mg/dL Creatinine 3.1 H D (0.8-1.3) mg/dL Est Cr Clr Drug Dosing 20.29 mL/min Estimated GFR (MDRD) 20 L (>60) Glucose 102 (74-106) mg/dL Calcium > 14.0 H* D (8.5-10.1) mg/dL Magnesium 1.8 (1.8-2.4) mg/dL Ferritin 469 H (8-388) ng/ml Total Bilirubin 0.9 (0.2-1.0) mg/dL AST 14 L (15-37) U/L ALT 20 (12-78) U/L Alkaline Phosphatase 119 H (46-116) U/L C-Reactive Protein (0.0-0.3) mg/dL Total Protein 7.0 (6.4-8.2) g/dL Albumin 2.9 L (3.4-5.0) g/dL Globulin 4.1 H (2.3-3.5) g/dL Albumin/Globulin Ratio 0.7 L (1.2-2.2) TSH, Ultra Sensitive (0.358-3.740) uIU/mL Urine Color (YELLOW) Urine Appearance (CLEAR) Urine pH (5.0-8.0) Ur Specific Craig (1.008-1.030) Urine Protein (NEGATIVE) mg/dL Urine Glucose (UA) (NEGATIVE) mg/dL Urine Ketones (NEGATIVE) mg/dL Urine Occult Blood (NEGATIVE) Urine Nitrite (NEGATIVE) Urine Bilirubin (NEGATIVE) Urine Urobilinogen (0.2-1.0) EU/dL Ur Leukocyte Esterase (NEGATIVE) Urine RBC (0-5) Urine WBC (0-5) Ur Epithelial Cells Amorphous Sediment Urine Bacteria Urine Mucus 09/06/19 09/06/19 09/06/19 Range/Units 15:44 16:33 18:37 WBC (4.5-11.0) K/uL RBC (4.30-5.90) M/uL Hgb (12.0-15.0) g/dL Hct (40.0-54.0) % MCV (80-98) fL MCH (27-31) pg MCHC (32-36) % Plt Count (150-400) K/uL Neut % (Auto) (36-66) % Lymph % (Auto) (24-44) % Kinney % (Auto) (2-6) % Eos % (Auto) (2-4) % Baso % (Auto) (0-1) % Sodium (140-148) mmol/L Potassium (3.6-5.2) mmol/L Chloride (100-108) mmol/L Carbon Dioxide (21-32) mmol/L Anion Gap (5.0-14.0) mmol/L BUN (7-18) mg/dL Creatinine (0.8-1.3) mg/dL Est Cr Clr Drug Dosing mL/min Estimated GFR (MDRD) (>60) Glucose (74-106) mg/dL Calcium (8.5-10.1) mg/dL Magnesium (1.8-2.4) mg/dL Ferritin (8-388) ng/ml Total Bilirubin (0.2-1.0) mg/dL AST (15-37) U/L ALT (12-78) U/L Alkaline Phosphatase (46-116) U/L C-Reactive Protein 10.75 H (0.0-0.3) mg/dL Total Protein (6.4-8.2) g/dL Albumin (3.4-5.0) g/dL Globulin (2.3-3.5) g/dL Albumin/Globulin Ratio (1.2-2.2) TSH, Ultra Sensitive 1.465 (0.358-3.740) uIU/mL Urine Color Yellow (YELLOW) Urine Appearance Clear (CLEAR) Urine pH 5.5 (5.0-8.0) Ur Specific Craig 1.025 (1.008-1.030) Urine Protein Negative (NEGATIVE) mg/dL Urine Glucose (UA) Negative (NEGATIVE) mg/dL Urine Ketones Negative (NEGATIVE) mg/dL Urine Occult Blood Negative (NEGATIVE) Urine Nitrite Negative (NEGATIVE) Urine Bilirubin Negative (NEGATIVE) Urine Urobilinogen 0.2 (0.2-1.0) EU/dL Ur Leukocyte Esterase Negative (NEGATIVE) Urine RBC 0-5 (0-5) Urine WBC 5-10 H (0-5) Ur Epithelial Cells Rare Amorphous Sediment Not seen Urine Bacteria Few Urine Mucus Not seen Result Diagrams: 09/06/19 15:41 09/06/19 15:41 Sepsis Event Note - Evaluation Sepsis Screening Result: No Definite Risk - Focused Exam Vital Signs: Vital Signs Temp Pulse Resp BP Pulse Ox 09/06/19 15:45 96.9 F 65 21 H 105/54 L 95 09/06/19 15:19 96.9 F 65 21 H 105/54 L 95 Date Exam was Performed: 09/06/19 Time Exam was Performed: 18:45 *Q Meaningful Use (ADM) - VTE Risk Assess *Q Each Risk Factor Represents 1 Point: Obesity ( BMI > 25 kg/m2) Total Score 1 Point Risk Factors: 1 Each Risk Factor Represents 2 Points: Age 60 - 74 Years Total Score 2 Point Risk Factors: 2 Each Risk Factor Represents 3 Points: None Total Score 3 Point Risk Factors: 0 Each Risk Factor Represents 5 Points: None Total Score 5 Point Risk Factors: 0 Venous Thromboembolism Risk Factor Score *Q: 3 Problem List Initiated/Reviewed/Updated: Yes Orders Last 24hrs: Active Orders 24 hr Category Date Time Status Patient Status Manage Transfer [TRANSFER] Routine ADT 09/06/19 17:22 Active EKG Documentation Completion [RC] ASDIRECTED Care 09/06/19 16:39 Active Cervical Spine Min 4V [CR] Stat Exams 09/06/19 16:42 Taken Shoulder Comp Rt [CR] Stat Exams 09/06/19 16:30 Taken Calcitonin (Wesley) [Miacalcin] Med 09/06/19 17:36 Pending 4 units SUBCUT ONETIME ONE MVI, Adult with Vitamin K [Infuvite Adult] 10 ml Med 09/06/19 18:15 Active Thiamine [Vitamin B-1] 100 mg Folic Acid 1 mg Magnesium Sulfate [Magnesium Sulfate 50%] 3 gm Sodium Chloride 0.9% [Normal Saline] 1,000 ml IV ASDIRECTED Sodium Chloride 0.9% [Normal Saline] 1,000 ml Med 09/06/19 16:15 Active IV ASDIRECTED Sodium Chloride 0.9% [Normal Saline] 1,000 ml Med 09/06/19 16:45 Active IV ASDIRECTED Resuscitation Status Routine Resus Stat 09/06/19 17:25 Ordered EKG 12 Lead [EK] Routine Ther 09/06/19 16:39 Ordered Medication Orders Calcitonin Wesley (Miacalcin) 4 units SUBCUT ONETIME ONE Stop: 09/06/19 17:37 Sodium Chloride (Normal Saline) 1,000 mls @ 999 mls/hr IV ASDIRECTED SUNG Last Admin: 09/06/19 16:18 Dose: 999 mls/hr Sodium Chloride (Normal Saline) 1,000 mls @ 999 mls/hr IV ASDIRECTED [facility] Last Admin: 09/06/19 17:26 Dose: 999 mls/hr Multivitamins/Minerals 10 ml/Thiamine HCl 100 mg/ Folic Acid 1 mg/ Magnesium Sulfate 3 gm/ Sodium Chloride 1,017.2 mls @ 100 mls/hr IV ASDIRECTED SUNG Stop: 09/07/19 04:16 Assessment/Plan Comment:: ASSESSMENT AND PLAN SEVERE HYPERCALCEMIA-associated with acute kidney injury. Other electrolytes are within normal range and TSH is normal. He has been taking vitamin D supplement but denies calcium supplement. He is not on a thiazide diuretic. -Arterial blood gases to evaluate for alkalosis -Ionized calcium level now and in a.m. -Parathyroid hormone and vitamin D level -Not a candidate for biphosphonate's because of renal function -Calcitonin 370 units subcu now -Vigorous hydration with normal saline -Consider IV furosemide after hydration -Reassess calcium in a.m. ACUTE KIDNEY INJURY-at baseline he has chronic kidney disease stage IV. Current GFR is 20 -IV fluids as above -Reassess kidney function in a.m. -Closely monitor urine output STATUS POST GASTRIC BYPASS SURGERY-history of nausea and vomiting over the past month with poor oral intake -Consult Dr. Viveros for EGD in a.m. -N.p.o. after midnight DEHYDRATION-secondary to nausea and poor oral intake -IV fluids as above MAINTENANCE ISSUES -DVT prophylaxis; Lovenox 30 mg subcu daily -GI prophylaxis; continue outpatient PPI therapy -Nan catheter; not indicated -Nutrition; bariatric diet, n.p.o. after midnight -Nicotine dependence; not required CODE STATUS-FULL CODE ADMISSION STATUS-patient will be admitted to inpatient status, expect at least a 2 night hospital stay for evaluation and management of problems as outlined above. At the time of this admission I do not reasonably expected evaluation and management of this problem will require more than a 96 hour hospital stay. DISPOSITION-anticipate discharge to home after the hospital stay. PRIMARY CARE PROVIDER-Dr. Shadi Tran - Mortality Measure Prognosis:: Good
[2019-09-06] MEDS: Labetalol 100 MG Tab PO SCH (20:25)
[2019-09-06] MEDS ORDERED: atorvaSTATin 20 MG Tab PO SCH (21:00)
[2019-09-07] MEDS ORDERED: Sodium Chloride 0.9% 1,000 ML IV SCH (01:30)
[2019-09-07] MEDS ORDERED: Propofol 200 MG/20 ML SDV ONE (07:20)
[2019-09-07] MEDS ORDERED: fentaNYL 100 MCG/2 ML SDV ONE (07:20)
[2019-09-07] MEDS ORDERED: Pantoprazole 40 MG Vial IVPUSH ONE (07:28)
--- NOTE | 2019-09-07 08:38 | PN ---
DATE OF SERVICE: 09/07/2019 SUBJECTIVE: Hill was admitted through the emergency room yesterday 09/06/2019 for progressive weakness, nausea, retching, underlying severe hyperkalemia, and acute kidney injury. He had Prashanth-en-Y gastric bypass surgery on 06/24/2019. His weight was 295. Today's weight is 210. He states when he started step 3 diet that he was having a difficult time swallowing, things would get stuck, and he would either wait for solid foods to go down or he would throw them up. He states that he was able to drink water and protein drinks. Hill's daughter did notify the clinic yesterday in regard to his severe weakness, not able to walk without assistance, and they did get him a walker. He did contact his primary care provider, had a virtual visit. At that time yesterday, he was recommended to go to emergency room [facility]. Hill was admitted. Labs revealed hemoglobin of 11.3 and potassium was greater than 14, creatinine 3.1, estimated creatinine clearance 20.29, and GFR 20. REVIEW OF SYSTEM: GENERAL: Hill reports that he continues to have mid epigastric pain, tightness, and a burping sensation. HEENT: Negative. NECK: Negative. CHEST: No chest pain, shortness of breath. LUNGS: No cough. ABDOMEN: Has been having normal bowel movements he states. No red or black stools. GENITOURINARY: Negative. EXTREMITIES: Weak. States his legs do not hold him up, he has to walk with a walker, feels dizzy, weak, and faint when up ambulating. PSYCHIATRIC: Mood and affect flat. Remainder of review of systems negative for any pertinent positives and negatives. OBJECTIVE: GENERAL: Hill Gudino is a pleasant 69-year-old male. VITAL SIGNS: Height is 5 feet 6 inches, weight is 210 pounds. TPR at 0730; 96.6, 49, 14, blood pressure 154/56. HEENT: Negative. NECK: Supple. HEART: Regular rate and rhythm. LUNGS: Clear. ABDOMEN: Mid epigastric abdominal pain to palpation. Slight distention. EXTREMITIES: Without peripheral edema. NEUROLOGIC: Intact. ASSESSMENT: 1. Severe dysphagia. 2. Nausea, vomiting. 3. Severe hyperkalemia. 4. Acute kidney injury. 5. Dehydration. 6. Status post Prashanth-en-Y gastric bypass surgery. 7. Unspecified surgical malabsorption. 8. B12 deficiency. PLAN: EGD with dilatation this a.m. Orders to be written postprocedure. We will evaluate p.r.n. or in a.m. Luciana Gaitan PA-C /[id number]
[2019-09-07] MEDS ORDERED: Aspirin 81 MG Tab.EC PO SCH (09:00)
[2019-09-07] MEDS ORDERED: AMILORIDE 5 MG PO SCH (09:00)
[2019-09-07] MEDS ORDERED: NIFEdipine 30 MG Tab.ER PO SCH (09:00)
--- NOTE | 2019-09-07 10:43 | CR ---
Shoulder Comp Rt CLINICAL HISTORY: Pain FINDINGS: There is no acute fracture or dislocation in the right shoulder. There is degenerative change and spurring at the AC joint.. Osteophytic changes are seen in the glenohumeral joint. There are mottled lucencies throughout the humerus clavicle and acromion process of the scapula. Impression: Osteophytic changes in the glenohumeral, AC joint and some upper ribs No fracture Mottled lucencies throughout the bony structures. This can be seen with myeloma or metastatic disease. The clinical correlation necessary
--- NOTE | 2019-09-07 10:43 | CR ---
Cervical Spine Min 4V CLINICAL HISTORY: Right shoulder pain FINDINGS: There is a compression deformity of C7. There may be loss of the anterior cortex in the vertebral body. There is poor visualization of the left the C7 pedicle on the oblique. There is a minimal anterolisthesis of C5 on C6. There is diffuse osteoarthritis throughout the facets. There is mild joint space narrowing with spondylosis. IMPRESSION: Compression deformity of C7 with possible osteolytic lesion in the vertebral body and left pedicle. Potentially, this could be unstable. Officer was notified at the time of this dictation at 09/07/2019 10:40 AM
[2019-09-07] MEDS ORDERED: Calcitonin (Salmon) 200 Units/ML 2 ML MDV SUBCUT ONE (11:49)
[2019-09-07] MEDS: Labetalol 100 MG Tab PO SCH (12:48)
--- NOTE | 2019-09-07 13:01 | CT ---
Cervical Spine wo Cont CLINICAL HISTORY: Shoulder pain, abnormal cervical spine series TECHNIQUE: Multiple CT sections were taken through the cervical spine in the transaxial projection. Coronal and sagittal views were reconstructed. Images were viewed at bone as well as soft tissue windows on a digital workstation. Auto dosage reduction and iterative reconstruction techniques employed. FINDINGS: Sagittal reconstruction images show significant osteolysis of the C7 vertebral body. There is about a 20% loss of the anterior vertebral body height. There is near complete loss of the right pedicle. This lesion extends into the superior facet. Left pedicle is intact. There is a prominent soft tissue component There is moderate loss of bone involving the left side of the C5 vertebral body. This also extends into the left pedicle. There is also a soft tissue component extending into the anterior lateral paravertebral region. There are numerous lytic lesions throughout the cervical and thoracic vertebral bodies IMPRESSION: Significant osteolysis of the C7 vertebral body and right posterior elements. There is some moderate soft tissue component to the lesion. This is felt to be an unstable lesion. On the obliques of the plain film study it was stated as the left pedicle. It is the right There is a second lytic lesion involving the left portion of the C5 vertebral body and pedicle also with the moderate soft tissue component. Diffuse small lytic lesions throughout the visualized spine and ribs. Findings are most consistent with diffuse metastatic disease. Multiple myeloma is less likely. Dr. Rodriguez and was notified by phone at the time of this dictation at 12:55 PM
--- NOTE | 2019-09-07 13:40 | OR ---
DATE OF PROCEDURE: 09/07/2019 SURGEON: Karri Viveros MD PREOPERATIVE DIAGNOSIS: Probable stricture at gastrojejunostomy. POSTOPERATIVE DIAGNOSIS: Minimal stricture at gastrojejunostomy with moderate inflammation of the gastric pouch and gastrojejunostomy. OPERATIVE PROCEDURE: Upper GI endoscopy with dilation of gastrojejunostomy. ANESTHESIA: IV sedation. INDICATIONS FOR PROCEDURE: The patient presents 2-1/2 months status post Prashanth-en-Y gastric bypass with problems with dysphagia. He was able to get water down, but beyond that he has relatively difficult problem with anything much thicker than that. Plan is to proceed with upper GI endoscopy with dilation as indicated. Potential risks including bleeding and perforation were discussed, and the patient wishes to proceed. DETAILS OF PROCEDURE: The patient was taken to the operating room and placed in a left lateral decubitus position. IV sedation was administered, after which the upper GI endoscope was passed orally through the length of the esophagus into the gastric pouch through the gastrojejunostomy roughly 20 cm into the Prashanth limb. The patient was noted to have some diffuse reddening and friability of the gastrojejunostomy. This was, however, fairly open with a 1 cm scope being passed through that area. In the small bowel, there was retained old food in the candy cane portion of the pouch, but not significant amount. At this point, Bard gastrointestinal catheter was centered across the anastomosis and inflated to 45-Turkish size. This has held in position for 1 minute, after which balloon catheter was deflated and withdrawn. There was a slight dilation noted by means of some circumferential blood around the gastrojejunostomy. Otherwise, there were no complications and the procedure was then concluded. The patient's symptoms may be related to sense of the edema and inflammation at the gastrojejunostomy, so we will get him on some Protonix IV while he is in the hospital and then probably run that for a month postoperatively. Otherwise, we will have Dietary see the patient, we will have him get some protein supplements t.i.d. Karri Viveros MD /[id number]
--- NOTE | 2019-09-07 14:09 | PCM.DCSUM1 ---
Discharge Summary - Hospital Course Brief History: Mr. Gudino is a 69-year-old gentleman who was admitted through the emergency department with a one-month history of neck and shoulder pain as well as nausea and retching, with underlying acute kidney injury and severe hypercalcemia. - Discharge Data Discharge Date: 09/07/19 Discharge Disposition: Home, Self-Care 01 Condition: Serious - Referral to Home Health Primary Care Physician: Shadi Tran MD - Discharge Diagnosis/Problem(s) (1) LISA (acute kidney injury) SNOMED Code(s): 12164439, 09087556 ICD Code: N17.9 - ACUTE KIDNEY FAILURE, UNSPECIFIED Status: Acute Current Visit: Yes (2) Unstable cervical spine SNOMED Code(s): 497839457 ICD Code: M53.2X2 - SPINAL INSTABILITIES, CERVICAL REGION Status: Acute Current Visit: Yes (3) Bone metastases Status: Acute Current Visit: Yes (4) Obstructive sleep apnea SNOMED Code(s): 77225369 ICD Code: G47.33 - OBSTRUCTIVE SLEEP APNEA (ADULT) (PEDIATRIC) Status: Chronic Current Visit: No (5) Hypercalcemia SNOMED Code(s): 94058236 ICD Code: E83.52 - HYPERCALCEMIA Status: Acute Current Visit: Yes (6) Dehydration SNOMED Code(s): 50073976 ICD Code: E86.0 - DEHYDRATION Status: Acute Current Visit: Yes (7) H/O gastric bypass SNOMED Code(s): 595207199 ICD Code: Z98.84 - BARIATRIC SURGERY STATUS Status: Chronic Current Visit : Yes - Patient Summary/Data Consults: Consultations 09/07/19 04:00 Consult to Physician [CONS] Routine Consulting Provider: Karri Viveros Call Completed to Consulting Physician: Yes Reason for Consult: N/V 09/07/19 08:59 Consult to Home Care Rn [CONS] Routine Comment: Physician Instructions: Quantity: Reason for Consult: minimal stricture-needs to chew food well Special Instructions: protein supplement TID-please recommend Hospital Course: Mr. Gudino is a 69 year old gentleman who was admitted through the emergency department with progressive weakness, nausea, retching, and underlying severe hypercalcemia and acute kidney injury. He underwent gastric bypass surgery approximately 2-1/2 months ago and did well for the first month and a half. Over the last month he has had ongoing difficulty with nausea and retching, very poor oral intake. Previously he had had chronic kidney disease stage III and a normal calcium level. He estimates that he had lost almost 100 pounds over the last 2-1/2 months. He has become progressively more weak, and has noted intermittent episodes of confusion. On evaluation in the emergency department today his creatinine is 3 with a GFR of 20 and a calcium level of greater than 14. On admission he was given aggressive IV fluids for dehydration and hypercalcemia. He was given 1 dose of calcitonin, 4 units/kg. We were unable to use biphosphonate's management of his hypercalcemia because of his renal dysfunction. By the following morning there had been modest improvement in his renal function with a creatinine of 2.6 and a GFR of 25. Calcium had improved to 13.2. X-rays were obtained of his shoulder and neck and showed evidence of areas of probable metastatic disease. CT scan of the neck was obtained and showed metastatic lesions at C7 and 5, there was concern about instability of the C7 lesion. Patient was placed in a hard cervical collar. He was seen and evaluated by Dr. Viveros because of his recent bariatric surgery and nausea with retching. EGD was performed which showed only mild narrowing and dilatation was performed. Dr. Viveros has recommended that the patient stay on a step to bariatric diet which is similar to a full liquid diet for the next 5 days and then could be advanced to a soft diet. Because of his findings and probable underlying metastatic disease as well as possibility of unstable cervical spine, decision was made to transfer the patient to a tertiary care center for further evaluation and management. Transfer has been accepted by the hospitalist shank boner at [facility] within the patient will be transferred there via [facility]. - Patient Instructions Diet: Full Liquid Diet Activity: As Tolerated Other/Special Instructions: Patient will be transferred to [facility] via [facility] - Discharge Plan *PRESCRIPTION DRUG MONITORING PROGRAM REVIEWED*: Not Applicable *COPY OF PRESCRIPTION DRUG MONITORING REPORT IN PATIENT ERLIN: Not Applicable Home Medications: Home Meds Aspirin 81 mg PO DAILY 06/21/19 [History] Furosemide 40 mg PO .MWF 06/21/19 [History] Labetalol [Normodyne] 300 mg PO BID 06/21/19 [History] NIFEdipine [Nifedipine ER] 60 mg PO DAILY 06/21/19 [History] Potassium Chloride [Klor-Con M20] 20 meq PO .MWF 06/21/19 [History] aMILoride [Midamor] 5 mg PO DAILY 06/21/19 [History] atorvaSTATin [Lipitor] 20 mg PO BEDTIME 06/21/19 [History] hydrALAZINE HCl [Hydralazine HCl] 50 mg PO BID 06/21/19 [History] Ferrous Sulfate 325 mg PO DAILY 09/06/19 [History] Pantoprazole [ProTONIX IV] 40 mg IV Q12H vial 09/07/19 [Rx] Referrals: Shadi Tran MD [Primary Care Provider] - - Discharge Summary/Plan Comment DC Time >30 min.: No - Patient Data Vitals - Most Recent: Last Vital Signs Temp 97.4 F 09/07/19 11:00 Pulse 53 L 09/07/19 11:00 Resp 16 09/07/19 11:00 BP 140/51 L 09/07/19 11:05 Pulse Ox 95 09/07/19 11:00 Weight - Most Recent: 210 lb 9.6 oz I&O - Last 24 hours: Intake & Output 09/06/19 09/07/19 09/07/19 22:59 06:59 14:59 Intake Total 240 2934 100 Output Total 750 2250 1300 Balance -510 684 -1200 Lab Results - Last 24 hrs: Laboratory Results - last 24 hr 09/06/19 09/06/19 09/06/19 Range/Units 15:41 15:41 15:41 WBC 9.5 (4.5-11.0) K/uL RBC 3.97 L (4.30-5.90) M/uL Hgb 11.3 L (12.0-15.0) g/dL Hct 34.9 L (40.0-54.0) % MCV 88 (80-98) fL MCH 29 (27-31) pg MCHC 32 (32-36) % Plt Count 405 H (150-400) K/uL Neut % (Auto) 71 H (36-66) % Lymph % (Auto) 17 L (24-44) % [place] % (Auto) 11 H (2-6) % Eos % (Auto) 1 L (2-4) % Baso % (Auto) 0 (0-1) % Puncture Site ABG pH (7.350-7.450) ABG pCO2 (35.0-42.0) mmHg ABG pO2 (75.0-100.0) mmHg ABG HCO3 (22.0-26.0) mmol/L ABG Total CO2 (23.0-27.0) mmol/L ABG O2 Saturation (95.0-98.0) % ABG O2 Content (15.0-23.0) %vol ABG Base Excess mm/L ABG Hemoglobin (13.5-18.0) g/dL ABG Oxyhemoglobin % ABG Carboxyhemoglobin (0.0-1.6) % ABG Methemoglobin % Brooks Test O2 Delivery Device Sodium 134 L (140-148) mmol/L Potassium 3.7 (3.6-5.2) mmol/L Chloride 98 L (100-108) mmol/L Carbon Dioxide 23 (21-32) mmol/L Anion Gap 16.7 H (5.0-14.0) mmol/L BUN 49 H D (7-18) mg/dL Creatinine 3.1 H D (0.8-1.3) mg/dL Est Cr Clr Drug Dosing 20.29 mL/min Estimated GFR (MDRD) 20 L (>60) Glucose 102 (74-106) mg/dL Calcium > 14.0 H* D (8.5-10.1) mg/dL POC WB Ioniz Calcium (1.12-1.32) mmol/L Magnesium 1.8 (1.8-2.4) mg/dL Ferritin 469 H (8-388) ng/ml Total Bilirubin 0.9 (0.2-1.0) mg/dL AST 14 L (15-37) U/L ALT 20 (12-78) U/L Alkaline Phosphatase 119 H (46-116) U/L C-Reactive Protein (0.0-0.3) mg/dL Total Protein 7.0 (6.4-8.2) g/dL Albumin 2.9 L (3.4-5.0) g/dL Globulin 4.1 H (2.3-3.5) g/dL Albumin/Globulin Ratio 0.7 L (1.2-2.2) Vitamin D 25-Hydroxy (30-100) ng/mL TSH, Ultra Sensitive (0.358-3.740) uIU/mL Urine Color (YELLOW) Urine Appearance (CLEAR) Urine pH (5.0-8.0) Ur Specific [place] (1.008-1.030) Urine Protein (NEGATIVE) mg/dL Urine Glucose (UA) (NEGATIVE) mg/dL Urine Ketones (NEGATIVE) mg/dL Urine Occult Blood (NEGATIVE) Urine Nitrite (NEGATIVE) Urine Bilirubin (NEGATIVE) Urine Urobilinogen (0.2-1.0) EU/dL Ur Leukocyte Esterase (NEGATIVE) Urine RBC (0-5) Urine WBC (0-5) Ur Epithelial Cells Amorphous Sediment Urine Bacteria Urine Mucus 09/06/19 09/06/19 09/06/19 Range/Units 15:44 16:33 18:37 WBC (4.5-11.0) K/uL RBC (4.30-5.90) M/uL Hgb (12.0-15.0) g/dL Hct (40.0-54.0) % MCV (80-98) fL MCH (27-31) pg MCHC (32-36) % Plt Count (150-400) K/uL Neut % (Auto) (36-66) % Lymph % (Auto) (24-44) % [place] % (Auto) (2-6) % Eos % (Auto) (2-4) % Baso % (Auto) (0-1) % Puncture Site ABG pH (7.350-7.450) ABG pCO2 (35.0-42.0) mmHg ABG pO2 (75.0-100.0) mmHg ABG HCO3 (22.0-26.0) mmol/L ABG Total CO2 (23.0-27.0) mmol/L ABG O2 Saturation (95.0-98.0) % ABG O2 Content (15.0-23.0) %vol ABG Base Excess mm/L ABG Hemoglobin (13.5-18.0) g/dL ABG Oxyhemoglobin % ABG Carboxyhemoglobin (0.0-1.6) % ABG Methemoglobin % Brooks Test O2 Delivery Device Sodium (140-148) mmol/L Potassium (3.6-5.2) mmol/L Chloride (100-108) mmol/L Carbon Dioxide (21-32) mmol/L Anion Gap (5.0-14.0) mmol/L BUN (7-18) mg/dL Creatinine (0.8-1.3) mg/dL Est Cr Clr Drug Dosing mL/min Estimated GFR (MDRD) (>60) Glucose (74-106) mg/dL Calcium (8.5-10.1) mg/dL POC WB Ioniz Calcium (1.12-1.32) mmol/L Magnesium (1.8-2.4) mg/dL Ferritin (8-388) ng/ml Total Bilirubin (0.2-1.0) mg/dL AST (15-37) U/L ALT (12-78) U/L Alkaline Phosphatase (46-116) U/L C-Reactive Protein 10.75 H (0.0-0.3) mg/dL Total Protein (6.4-8.2) g/dL Albumin (3.4-5.0) g/dL Globulin (2.3-3.5) g/dL Albumin/Globulin Ratio (1.2-2.2) Vitamin D 25-Hydroxy (30-100) ng/mL TSH, Ultra Sensitive 1.465 (0.358-3.740) uIU/mL Urine Color Yellow (YELLOW) Urine Appearance Clear (CLEAR) Urine pH 5.5 (5.0-8.0) Ur Specific [place] 1.025 (1.008-1.030) Urine Protein Negative (NEGATIVE) mg/dL Urine Glucose (UA) Negative (NEGATIVE) mg/dL Urine Ketones Negative (NEGATIVE) mg/dL Urine Occult Blood Negative (NEGATIVE) Urine Nitrite Negative (NEGATIVE) Urine Bilirubin Negative (NEGATIVE) Urine Urobilinogen 0.2 (0.2-1.0) EU/dL Ur Leukocyte Esterase Negative (NEGATIVE) Urine RBC 0-5 (0-5) Urine WBC 5-10 H (0-5) Ur Epithelial Cells Rare Amorphous Sediment Not seen Urine Bacteria Few Urine Mucus Not seen 09/06/19 09/06/19 09/06/19 Range/Units 18:49 18:50 19:35 WBC (4.5-11.0) K/uL RBC (4.30-5.90) M/uL Hgb (12.0-15.0) g/dL Hct (40.0-54.0) % MCV (80-98) fL MCH (27-31) pg MCHC (32-36) % Plt Count (150-400) K/uL Neut % (Auto) (36-66) % Lymph % (Auto) (24-44) % [place] % (Auto) (2-6) % Eos % (Auto) (2-4) % Baso % (Auto) (0-1) % Puncture Site Lt radial ABG pH 7.490 H (7.350-7.450) ABG pCO2 28.9 L (35.0-42.0) mmHg ABG pO2 82.8 (75.0-100.0) mmHg ABG HCO3 21.8 L (22.0-26.0) mmol/L ABG Total CO2 19.8 L (23.0-27.0) mmol/L ABG O2 Saturation 96.0 (95.0-98.0) % ABG O2 Content 13.8 L (15.0-23.0) %vol ABG Base Excess -0.5 mm/L ABG Hemoglobin 10.4 L (13.5-18.0) g/dL ABG Oxyhemoglobin 94.2 % ABG Carboxyhemoglobin 0.9 (0.0-1.6) % ABG Methemoglobin 1.0 % Brooks Test Pass O2 Delivery Device Sodium (140-148) mmol/L Potassium (3.6-5.2) mmol/L Chloride (100-108) mmol/L Carbon Dioxide (21-32) mmol/L Anion Gap (5.0-14.0) mmol/L BUN (7-18) mg/dL Creatinine (0.8-1.3) mg/dL Est Cr Clr Drug Dosing mL/min Estimated GFR (MDRD) (>60) Glucose (74-106) mg/dL Calcium (8.5-10.1) mg/dL POC WB Ioniz Calcium 2.09 H* (1.12-1.32) mmol/L Magnesium (1.8-2.4) mg/dL Ferritin (8-388) ng/ml Total Bilirubin (0.2-1.0) mg/dL AST (15-37) U/L ALT (12-78) U/L Alkaline Phosphatase (46-116) U/L C-Reactive Protein (0.0-0.3) mg/dL Total Protein (6.4-8.2) g/dL Albumin (3.4-5.0) g/dL Globulin (2.3-3.5) g/dL Albumin/Globulin Ratio (1.2-2.2) Vitamin D 25-Hydroxy 27.1 L (30-100) ng/mL TSH, Ultra Sensitive (0.358-3.740) uIU/mL Urine Color (YELLOW) Urine Appearance (CLEAR) Urine pH (5.0-8.0) Ur Specific [place] (1.008-1.030) Urine Protein (NEGATIVE) mg/dL Urine Glucose (UA) (NEGATIVE) mg/dL Urine Ketones (NEGATIVE) mg/dL Urine Occult Blood (NEGATIVE) Urine Nitrite (NEGATIVE) Urine Bilirubin (NEGATIVE) Urine Urobilinogen (0.2-1.0) EU/dL Ur Leukocyte Esterase (NEGATIVE) Urine RBC (0-5) Urine WBC (0-5) Ur Epithelial Cells Amorphous Sediment Urine Bacteria Urine Mucus 09/07/19 09/07/19 09/07/19 Range/Units 04:13 04:13 08:20 WBC 8.4 (4.5-11.0) K/uL RBC 3.59 L (4.30-5.90) M/uL Hgb 10.3 L (12.0-15.0) g/dL Hct 31.7 L (40.0-54.0) % MCV 88 (80-98) fL MCH 29 (27-31) pg MCHC 33 (32-36) % Plt Count 338 (150-400) K/uL Neut % (Auto) 69 H (36-66) % Lymph % (Auto) 19 L (24-44) % [place] % (Auto) 11 H (2-6) % Eos % (Auto) 1 L (2-4) % Baso % (Auto) 0 (0-1) % Puncture Site ABG pH (7.350-7.450) ABG pCO2 (35.0-42.0) mmHg ABG pO2 (75.0-100.0) mmHg ABG HCO3 (22.0-26.0) mmol/L ABG Total CO2 (23.0-27.0) mmol/L ABG O2 Saturation (95.0-98.0) % ABG O2 Content (15.0-23.0) %vol ABG Base Excess mm/L ABG Hemoglobin (13.5-18.0) g/dL ABG Oxyhemoglobin % ABG Carboxyhemoglobin (0.0-1.6) % ABG Methemoglobin % Brooks Test O2 Delivery Device Sodium 136 L (140-148) mmol/L Potassium 4.0 (3.6-5.2) mmol/L Chloride 104 (100-108) mmol/L Carbon Dioxide 24 (21-32) mmol/L Anion Gap 12.0 (5.0-14.0) mmol/L BUN 43 H (7-18) mg/dL Creatinine 2.6 H (0.8-1.3) mg/dL Est Cr Clr Drug Dosing 24.20 mL/min Estimated GFR (MDRD) 25 L (>60) Glucose 90 (74-106) mg/dL Calcium 13.2 H* (8.5-10.1) mg/dL POC WB Ioniz Calcium 1.92 H* (1.12-1.32) mmol/L Magnesium (1.8-2.4) mg/dL Ferritin (8-388) ng/ml Total Bilirubin (0.2-1.0) mg/dL AST (15-37) U/L ALT (12-78) U/L Alkaline Phosphatase (46-116) U/L C-Reactive Protein (0.0-0.3) mg/dL Total Protein (6.4-8.2) g/dL Albumin (3.4-5.0) g/dL Globulin (2.3-3.5) g/dL Albumin/Globulin Ratio (1.2-2.2) Vitamin D 25-Hydroxy (30-100) ng/mL TSH, Ultra Sensitive (0.358-3.740) uIU/mL Urine Color (YELLOW) Urine Appearance (CLEAR) Urine pH (5.0-8.0) Ur Specific [place] (1.008-1.030) Urine Protein (NEGATIVE) mg/dL Urine Glucose (UA) (NEGATIVE) mg/dL Urine Ketones (NEGATIVE) mg/dL Urine Occult Blood (NEGATIVE) Urine Nitrite (NEGATIVE) Urine Bilirubin (NEGATIVE) Urine Urobilinogen (0.2-1.0) EU/dL Ur Leukocyte Esterase (NEGATIVE) Urine RBC (0-5) Urine WBC (0-5) Ur Epithelial Cells Amorphous Sediment Urine Bacteria Urine Mucus Med Orders - Current: Current Medications Acetaminophen (Tylenol) 650 mg PO Q4H PRN PRN Reason: Pain (Mild 1-3)/fever Last Admin: 09/06/19 23:32 Dose: 650 mg Aspirin (Halfprin) 81 mg PO DAILY [facility] Last Admin: 09/07/19 10:07 Dose: 81 mg Atorvastatin Calcium (Lipitor) 20 mg PO BEDTIME [facility] Last Admin: 09/06/19 20:24 Dose: 20 mg Calcitonin [place] (Miacalcin) 370 units SUBCUT ONETIME ONE Stop: 09/07/19 11:50 Enoxaparin Sodium (Lovenox) 30 mg SUBCUT Q24H [facility] Sodium Chloride (Normal Saline) 1,000 mls @ 125 mls/hr IV ASDIRECTED [facility] Last Admin: 09/07/19 00:37 Dose: 125 mls/hr Labetalol HCl (Normodyne) 300 mg PO BID [facility] Last Admin: 09/07/19 12:48 Dose: Not Given Nifedipine (Procardia Xl) 60 mg PO DAILY [facility] Last Admin: 09/07/19 11:05 Dose: 60 mg Non-Formulary Medication (Amiloride [Midamor]) 5 mg PO DAILY [facility] Ondansetron HCl (Zofran) 4 mg IV Q4H PRN PRN Reason: Nausea/Vomiting Pantoprazole Sodium (Protonix Iv) 40 mg IV Q12H [facility] Sodium Chloride (Saline Flush) 10 ml FLUSH ASDIRECTED PRN PRN Reason: Keep Vein Open Discontinued Medications Calcitonin [place] (Miacalcin) 4 units SUBCUT ONETIME ONE Stop: 09/06/19 17:37 Last Admin: 09/06/19 22:27 Dose: Not Given Calcitonin [place] (Miacalcin) 370 units SUBCUT ONETIME ONE Stop: 09/06/19 20:16 Last Admin: 09/06/19 20:25 Dose: 370 units Enoxaparin Sodium (Lovenox) 30 mg SUBCUT DAILY [facility] Last Admin: 09/06/19 20:24 Dose: 30 mg Fentanyl (Sublimaze) Confirm Administered Dose 100 mcg .ROUTE .STK-MED ONE Stop: 09/07/19 07:21 Sodium Chloride (Normal Saline) 1,000 mls @ 999 mls/hr IV ASDIRECTED [facility] Last Admin: 09/06/19 16:18 Dose: 999 mls/hr Sodium Chloride (Normal Saline) 1,000 mls @ 999 mls/hr IV ASDIRECTED [facility] Last Admin: 09/06/19 17:26 Dose: 999 mls/hr Multivitamins/Minerals 10 ml/Thiamine HCl 100 mg/ Folic Acid 1 mg/ Magnesium Sulfate 3 gm/ Sodium Chloride 1,017.2 mls @ 100 mls/hr IV ASDIRECTED [facility] Stop: 09/07/19 04:16 Last Admin: 09/06/19 20:25 Dose: 100 mls/hr Thiamine HCl 200 mg/ Sodium (Chloride) 102 mls @ 204 mls/hr IV ONETIME ONE Stop: 09/06/19 18:09 Last Admin: 09/06/19 19:42 Dose: 204 mls/hr Sodium Chloride (Normal Saline) 1,000 mls @ 250 mls/hr IV ASDIRECTED [facility] Stop: 09/07/19 02:50 Last Admin: 09/06/19 19:47 Dose: 250 mls/hr Pantoprazole Sodium (Protonix Iv) 40 mg IVPUSH ONETIME ONE Stop: 09/07/19 07:29 Last Admin: 09/07/19 07:37 Dose: 40 mg Propofol (Diprivan 20 Ml) Confirm Administered Dose 200 mg .ROUTE .STK-MED ONE Stop: 09/07/19 07:21 - Exam General: Reports: Alert, Oriented, Cooperative, Mild Distress Lungs: Reports: Clear to Auscultation, Normal Respiratory Effort Cardiovascular: Reports: Regular Rate, Regular Rhythm, No Murmurs GI/Abdominal Exam: Soft, Non-Tender, No Organomegaly, No Distention
--- NOTE | 2019-09-07 14:43 | PN ---
DATE OF SERVICE: 09/07/2019 The patient was admitted overnight with dysphagia 2-1/2 months status post Prashanth-en-Y gastric bypass. He reports he has been able to take water, but otherwise difficult taking in much thicker liquids or solids. The patient was also noted to have a calcium level of 14 with likely elevated ionized calcium as well. Those will be managed per Dr. Rodriguez. Of note, a few weeks ago, his calcium levels were normal. At the time of upper endoscopy, he was noted to have minimal stricture, but some friability and redness of the gastric pouch and gastrojejunostomy. We will keep him on some Protonix 40 mg q.12 hours while he is here. We will have Dietary see the patient regarding some supplements and otherwise begin step 2 diet today. Karri Viveros MD /[id number]
[2019-09-07] MEDS ORDERED: Pantoprazole 40 MG Vial IV SCH (20:00)
[2019-09-07] MEDS ORDERED: Enoxaparin 30 MG/0.3 ML Syringe SUBCUT SCH (20:00)
== END 2019-09-07 14:45 | disposition home or self-care (01) | DRG 683 ==
LOC: JP.ED 15:02 → JP.MS 17:22
PROVIDERS: ADMIT Hospitalist; ATTEND Hospitalist
PROC: 0D7A8DZ Dilation of Jejunum with Intraluminal Device, Via Natural or Artificial Opening Endoscopic (ICD-10-PCS; principal; 2019-09-07)
DX: N17.9 Acute kidney failure, unspecified (principal); C79.51 Secondary malignant neoplasm of bone; K91.2 Postsurgical malabsorption, not elsewhere classified; K91.30 Postprocedural intestinal obstruction, unspecified as to partial versus complete; E83.52 Hypercalcemia; M53.2X2 Spinal instabilities, cervical region; G47.33 Obstructive sleep apnea (adult) (pediatric); E86.0 Dehydration; E78.00 Pure hypercholesterolemia, unspecified; I12.9 Hypertensive chronic kidney disease with stage 1 through stage 4 chronic kidney disease, or unspecified chronic kidney disease; E11.22 Type 2 diabetes mellitus with diabetic chronic kidney disease; N18.4 Chronic kidney disease, stage 4 (severe); E53.8 Deficiency of other specified B group vitamins; Z98.84 Bariatric surgery status; Z79.82 Long term (current) use of aspirin; Z79.899 Other long term (current) drug therapy
CPT/HCPCS: 36415; 36600; 72050; 72050-26; 72125; 72125-26; 73030-26-RT; 73030-RT; 80048; 80053; 81001; 82306; 82330; 82728; 82803; 82962; 83735; 83970; 84443; 85025; 86140; 93005; 93010; 96360; 99285-25; A9270-GY; C9113; J0630; J1650; J2704; J3010; J3411; J3475; J3490; J7030; J7050

== ENCOUNTER 2020-06-12 03:25 | Inpatient (IN) | payer MEDICARE ==
[2020-06-12] MEDS ORDERED: Dextrose 5%-Lactated Ringers 1,000 ML IV SCH (04:15)
[2020-06-12] MEDS ORDERED: Lactated Ringers 500 ML IV ONE (04:55)
[2020-06-12] MEDS ORDERED: Lactated Ringers 1,000 ML IV ONE (06:44)
[2020-06-12] MEDS ORDERED: Norepinephrine 8 MG in Dextrose 5% in Water 250 ML IV SCH ×2 (06:45)
[2020-06-12] MEDS ORDERED: Norepinephrine 4 MG/4 ML SDV ONE (06:45)
[2020-06-12] MEDS ORDERED: Dextrose 5% in Water 250 ML ONE (06:46)
[2020-06-12] MEDS ORDERED: Piperacillin/Tazobactam 3.375 GM in Sodium Chloride 0.9% 50 ML IV SCH (07:30)
[2020-06-12] MEDS ORDERED: Piperacillin/Tazobactam/Dext 3.375 GM in Premix Bag 1 BAG IV SCH (08:00)
[2020-06-12] MEDS ORDERED: Dexamethasone 4 MG/ML SDV ONE (10:45)
[2020-06-12] MEDS ORDERED: Neostigmine Methylsulfate 1 MG/ML 5 ML Syringe ONE (10:45)
[2020-06-12] MEDS ORDERED: Succinylcholine 200 MG/10 ML MDV ONE (10:45)
[2020-06-12] MEDS ORDERED: Ondansetron 4 MG/2 ML SDV ONE (10:45)
[2020-06-12] MEDS ORDERED: Rocuronium 50 MG/5 ML Vial ONE (10:45)
[2020-06-12] MEDS ORDERED: Glycopyrrolate 0.2 MG/ML 5 ML MDV ONE (10:45)
[2020-06-12] MEDS ORDERED: Propofol 200 MG/20 ML SDV ONE (10:45)
[2020-06-12] MEDS ORDERED: fentaNYL 250 MCG/5 ML SDV ONE (10:47)
--- NOTE | 2020-06-12 11:43 | PCM.CONS ---
H&P History of Present Illness - General Date of Service: 06/12/20 Admit Problem/Dx: Admission Diagnosis/Problem Admission Diagnosis/Problem Acute cholecystitis Source of Information: Patient, Old Records, Provider, RN Notes Reviewed History Limitations: Reports: No Limitations - History of Present Illness Initial Comments - Free Text/Narative: Mr. Gudino is a 69-year-old gentleman who was admitted as a direct admission from the emergency department in [place] by Dr. Viveros. He is status post Prashanth-en-Y gastric bypass surgery done approximately 1 year ago. He states that he was feeling well until about 7:00 last night when he noted abrupt onset of epigastric and right upper quadrant abdominal pain shortly after eating. He was seen and evaluated in the emergency department in [place]. Imaging showed evidence of gallbladder wall thickening as well as cholelithiasis. Because of his past history of gastric bypass surgery who was referred to Dr. Viveros for probable cholecystectomy. He arrived here in [place] he had developed significant tachycardia and hypotension. He was transferred to the intensive care unit given IV fluid replacement per sepsis protocol. Blood pressures remained low despite fluid and he was started on IV norepinephrine. He has also been started on empiric IV antibiotic therapy with Zosyn and aztreonam. Blood pressure has stabilized and his heart rate is come down with interventions as outlined above. Plan is to proceed with surgical intervention later today. - Related Data Allergies/Adverse Reactions: Allergies Allergy/AdvReac Type Severity Reaction Status Date / Time No Known Allergies Allergy Verified 09/06/19 15:37 Home Medications: Home Meds Aspirin 81 mg PO DAILY 06/21/19 [History] Furosemide 40 mg PO .[facility] 06/21/19 [History] Labetalol [Normodyne] 300 mg PO BID 06/21/19 [History] NIFEdipine [Nifedipine ER] 60 mg PO DAILY 06/21/19 [History] Potassium Chloride [Klor-Con M20] 20 meq PO .[facility] 06/21/19 [History] aMILoride [Midamor] 5 mg PO DAILY 06/21/19 [History] atorvaSTATin [Lipitor] 20 mg PO BEDTIME 06/21/19 [History] hydrALAZINE HCl [Hydralazine HCl] 50 mg PO BID 06/21/19 [History] Ferrous Sulfate 325 mg PO DAILY 04/14/20 [History] Past Medical History HEENT History: Reports: Impaired Vision Cardiovascular History: Reports: High Cholesterol, Hypertension Respiratory History: Reports: Sleep Apnea Genitourinary History: Reports: Renal Calculus, Urinary Incontinence Endocrine/Metabolic History: Reports: Diabetes, Type II, Vitamin D Deficiency Hematologic History: Reports: Blood Transfusion(s) Oncologic (Cancer) History: Reports: Other (See Below) Other Oncologic History: patient states "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" - Infectious Disease History Infectious Disease History: Reports: Chicken Pox, Measles, Mumps - Past Surgical History Cardiovascular Surgical History: Reports: None GI Surgical History: Reports: Bariatric Procedure, EGD Musculoskeletal Surgical History: Reports: Other (See Below) Other Musculoskeletal Surgeries/Procedures:: Laminectomy Social & Family History - Family History Family Medical History: No Pertinent Family History - Tobacco Use Tobacco Use Status *Q: Former Tobacco User Used Tobacco, but Quit: Yes Month/Year Tobacco Last Used: 1981 - Caffeine Use Caffeine Use: Reports: None - Recreational Drug Use Recreational Drug Use: No H&P Review of Systems - Review of Systems: Review Of Systems: See Below General: Reports: No Symptoms HEENT: Reports: No Symptoms Pulmonary: Reports: No Symptoms Cardiovascular: Reports: No Symptoms Gastrointestinal: Reports: Abdominal Pain, Nausea. Denies: Constipation, Diarrhea, Difficulty Swallowing, Distension, Hematemesis, Hematochezia, Melena, Stool Incontinence, Vomiting Genitourinary: Reports: No Symptoms Musculoskeletal: Reports: No Symptoms Skin: Reports: No Symptoms Psychiatric: Reports: No Symptoms Neurological: Reports: No Symptoms Hematologic/Lymphatic: Reports: No Symptoms Immunologic: Reports: No Symptoms Exam - Exam Exam: See Below - Vital Signs Vital Signs: Last Vital Signs Temp 98.5 F 06/12/20 07:30 Pulse 90 06/12/20 08:00 Resp 24 H 06/12/20 08:00 BP 102/53 L 06/12/20 08:00 Pulse Ox 99 06/12/20 08:00 Weight: 152 lb - Exam Quality Assessment: DVT Prophylaxis General: Alert, Oriented, Cooperative, Moderate Distress HEENT: Conjunctiva Clear, Hearing Intact, Mucosa Moist & [place], Normal Nasal Septum, Posterior Pharynx Clear, Pupils Equal Neck: Supple, Trachea Midline, +2 Carotid Pulse wo Bruit Lungs: Clear to Auscultation, Normal Respiratory Effort, Decreased Breath Sounds Cardiovascular: Regular Rate, Regular Rhythm, Normal S1, Normal S2. No: Systolic Murmur, Diastolic Murmur GI/Abdominal Exam: Soft, No Organomegaly, Rebound, Tender. No: Distended, Guarding, Rigid Back Exam: Normal Inspection, Full Range of Motion Extremities: Non-Tender, No Pedal Edema Skin: Warm, Dry, Intact Neurological: Cranial Nerves Intact, Strength Equal Bilateral, Normal Speech, Normal Tone, Sensation Intact. No: Focal Deficit Neuro Extensive - Mental Status: Alert, Oriented x3, Normal Mood/Affect, Normal Cognition, Memory Intact - Patient Data Lab Results Last 24 hrs: Laboratory Results - last 24 hr 06/12/20 06/12/20 06/12/20 Range/Units 07:18 07:18 07:18 WBC 7.3 (4.5-11.0) K/uL RBC 2.48 L (4.30-5.90) M/uL Hgb 7.5 L D (12.0-15.0) g/dL Hct 23.2 L (40.0-54.0) % MCV 94 (80-98) fL MCH 30 (27-31) pg MCHC 32 (32-36) % Plt Count 140 L (150-400) K/uL Neut % (Auto) 86 H (36-66) % Lymph % (Auto) 4 L (24-44) % Haines % (Auto) 10 H (2-6) % Eos % (Auto) 0 L (2-4) % Baso % (Auto) 0 (0-1) % Sodium 137 L (140-148) mmol/L Potassium 4.9 (3.6-5.2) mmol/L Chloride 111 H (100-108) mmol/L Carbon Dioxide 13 L (21-32) mmol/L Anion Gap 13.0 (5.0-14.0) mmol/L BUN 38 H (7-18) mg/dL Creatinine 2.4 H (0.8-1.3) mg/dL Est Cr Clr Drug Dosing 26.21 mL/min Estimated GFR (MDRD) 27 L (>60) Glucose 94 (74-106) mg/dL Lactic Acid (0.4-2.0) mmol/L Calcium 7.3 L D (8.5-10.1) mg/dL Phosphorus (2.5-4.9) mg/dL Magnesium (1.8-2.4) mg/dL Ferritin 3011 H (8-388) ng/ml Total Bilirubin 1.7 H D (0.2-1.0) mg/dL AST 288 H D (15-37) U/L ALT 204 H (12-78) U/L Alkaline Phosphatase 392 H D (46-116) U/L NT-Pro-B Natriuret Pep 42193 H (5-125) pg/mL Total Protein 4.0 L (6.4-8.2) g/dL Albumin 2.0 L (3.4-5.0) g/dL Globulin 2.0 L (2.3-3.5) g/dL Albumin/Globulin Ratio 1.0 L (1.2-2.2) Urine Color (YELLOW) Urine Appearance (CLEAR) Urine pH (5.0-8.0) Ur Specific Wallace (1.008-1.030) Urine Protein (NEGATIVE) mg/dL Urine Glucose (UA) (NEGATIVE) mg/dL Urine Ketones (NEGATIVE) mg/dL Urine Occult Blood (NEGATIVE) Urine Nitrite (NEGATIVE) Urine Bilirubin (NEGATIVE) Urine Urobilinogen (0.2-1.0) EU/dL Ur Leukocyte Esterase (NEGATIVE) Urine RBC (0-5) Urine WBC (0-5) Ur Epithelial Cells Amorphous Sediment Urine Bacteria Urine Mucus Blood Type Gel Antibody Screen Crossmatch 06/12/20 06/12/20 06/12/20 Range/Units 07:18 07:18 08:40 WBC (4.5-11.0) K/uL RBC (4.30-5.90) M/uL Hgb (12.0-15.0) g/dL Hct (40.0-54.0) % MCV (80-98) fL MCH (27-31) pg MCHC (32-36) % Plt Count (150-400) K/uL Neut % (Auto) (36-66) % Lymph % (Auto) (24-44) % Haines % (Auto) (2-6) % Eos % (Auto) (2-4) % Baso % (Auto) (0-1) % Sodium (140-148) mmol/L Potassium (3.6-5.2) mmol/L Chloride (100-108) mmol/L Carbon Dioxide (21-32) mmol/L Anion Gap (5.0-14.0) mmol/L BUN (7-18) mg/dL Creatinine (0.8-1.3) mg/dL Est Cr Clr Drug Dosing mL/min Estimated GFR (MDRD) (>60) Glucose (74-106) mg/dL Lactic Acid 4.1 H (0.4-2.0) mmol/L Calcium (8.5-10.1) mg/dL Phosphorus 5.3 H (2.5-4.9) mg/dL Magnesium 1.5 L (1.8-2.4) mg/dL Ferritin (8-388) ng/ml Total Bilirubin (0.2-1.0) mg/dL AST (15-37) U/L ALT (12-78) U/L Alkaline Phosphatase (46-116) U/L NT-Pro-B Natriuret Pep (5-125) pg/mL Total Protein (6.4-8.2) g/dL Albumin (3.4-5.0) g/dL Globulin (2.3-3.5) g/dL Albumin/Globulin Ratio (1.2-2.2) Urine Color (YELLOW) Urine Appearance (CLEAR) Urine pH (5.0-8.0) Ur Specific Wallace (1.008-1.030) Urine Protein (NEGATIVE) mg/dL Urine Glucose (UA) (NEGATIVE) mg/dL Urine Ketones (NEGATIVE) mg/dL Urine Occult Blood (NEGATIVE) Urine Nitrite (NEGATIVE) Urine Bilirubin (NEGATIVE) Urine Urobilinogen (0.2-1.0) EU/dL Ur Leukocyte Esterase (NEGATIVE) Urine RBC (0-5) Urine WBC (0-5) Ur Epithelial Cells Amorphous Sediment Urine Bacteria Urine Mucus Blood Type A POSITIVE Gel Antibody Screen Negative Crossmatch See Detail 06/12/20 Range/Units 10:03 WBC (4.5-11.0) K/uL RBC (4.30-5.90) M/uL Hgb (12.0-15.0) g/dL Hct (40.0-54.0) % MCV (80-98) fL MCH (27-31) pg MCHC (32-36) % Plt Count (150-400) K/uL Neut % (Auto) (36-66) % Lymph % (Auto) (24-44) % Haines % (Auto) (2-6) % Eos % (Auto) (2-4) % Baso % (Auto) (0-1) % Sodium (140-148) mmol/L Potassium (3.6-5.2) mmol/L Chloride (100-108) mmol/L Carbon Dioxide (21-32) mmol/L Anion Gap (5.0-14.0) mmol/L BUN (7-18) mg/dL Creatinine (0.8-1.3) mg/dL Est Cr Clr Drug Dosing mL/min Estimated GFR (MDRD) (>60) Glucose (74-106) mg/dL Lactic Acid (0.4-2.0) mmol/L Calcium (8.5-10.1) mg/dL Phosphorus (2.5-4.9) mg/dL Magnesium (1.8-2.4) mg/dL Ferritin (8-388) ng/ml Total Bilirubin (0.2-1.0) mg/dL AST (15-37) U/L ALT (12-78) U/L Alkaline Phosphatase (46-116) U/L NT-Pro-B Natriuret Pep (5-125) pg/mL Total Protein (6.4-8.2) g/dL Albumin (3.4-5.0) g/dL Globulin (2.3-3.5) g/dL Albumin/Globulin Ratio (1.2-2.2) Urine Color Yellow (YELLOW) Urine Appearance Clear (CLEAR) Urine pH 5.0 (5.0-8.0) Ur Specific Wallace 1.015 (1.008-1.030) Urine Protein Trace H (NEGATIVE) mg/dL Urine Glucose (UA) Negative (NEGATIVE) mg/dL Urine Ketones Negative (NEGATIVE) mg/dL Urine Occult Blood Negative (NEGATIVE) Urine Nitrite Negative (NEGATIVE) Urine Bilirubin Negative (NEGATIVE) Urine Urobilinogen 0.2 (0.2-1.0) EU/dL Ur Leukocyte Esterase Negative (NEGATIVE) Urine RBC Not seen (0-5) Urine WBC 0-5 (0-5) Ur Epithelial Cells Not seen Amorphous Sediment Many Urine Bacteria Not seen Urine Mucus Not seen Blood Type Gel Antibody Screen Crossmatch Result Diagrams: 06/12/20 07:18 06/12/20 07:18 Sepsis Event Note - Evaluation Sepsis Screening Result: No Definite Risk - Focused Exam Vital Signs: Vital Signs Temp Pulse Resp BP Pulse Ox 06/12/20 08:00 90 24 H 102/53 L 99 06/12/20 07:30 98.5 F 84 18 100/49 L 99 06/12/20 07:00 149 H 18 81/53 L 100 06/12/20 06:13 152 H 20 69/40 L 06/12/20 05:44 65/44 L 06/12/20 05:36 69/34 L 06/12/20 05:20 64/45 L 06/12/20 04:52 99.5 F 156 H 22 H 66/33 L 96 06/12/20 04:51 156 H 24 H 66/48 L 97 06/12/20 04:48 66/48 L 06/12/20 03:38 99.5 F 100 18 112/60 98 Consult PN Assessment/Plan Procedures: Procedures ASSAY OF CALCIUM (09/06/19) ASSAY OF MAGNESIUM (06/24/19) ASSAY OF NATRIURETIC PEPTIDE (06/24/19) ASSAY OF PARATHORMONE (09/06/19) ASSAY OF PHOSPHORUS (06/24/19) BLOOD GASES ANY COMBINATION (09/06/19) BLOOD TYPING SEROLOGIC ABO (06/24/19) BLOOD TYPING SEROLOGIC RH(D) (06/24/19) COMPLETE CBC W/AUTO DIFF WBC (09/06/19) CT NECK SPINE W/O DYE (09/06/19) GLUCOSE BLOOD TEST (09/06/19) MEASURE BLOOD OXYGEN LEVEL (06/24/19) METABOLIC PANEL TOTAL CA (09/06/19) RBC ANTIBODY SCREEN (06/24/19) ROUTINE VENIPUNCTURE (09/06/19) SPECIAL STAINS GROUP 2 (06/24/19) TISSUE EXAM BY PATHOLOGIST (06/24/19) TISSUE EXAM BY PATHOLOGIST (06/24/19) URINALYSIS AUTO W/SCOPE (09/06/19) VITAMIN D 25 HYDROXY (09/06/19) WITHDRAWAL OF ARTERIAL BLOOD (09/06/19) X-RAY XM UPR GI TRC 1CNTRST (06/24/19) Problem List Initiated/Reviewed/Updated: Yes My Orders Last 24 Hours: My Active Orders 06/12/20 10:01 PICC Line [Central Line Insert Checklist] [RC] ASDIRECTED Central Line PICC Insertion [Central Venous Line Insertion] [OM.PC] Routine 06/12/20 10:02 Consult to PICC Team [CONS] Routine 06/12/20 10:03 CULTURE URINE [RM] Routine Plan: ASSESSMENT AND RECOMMENDATIONS SEPTIC SHOCK SECONDARY TO CHOLECYSTITIS-he has stabilized now with antibiotic therapy and norepinephrine -PICC line placement -Continue current antibiotic therapy with Zosyn and aztreonam -Continue norepinephrine -Continue IV fluids -Surgical management per Dr. Viveros STATUS POST PRASHANTH-EN-Y GASTRIC BYPASS SURGERY Requesting Provider: JUDI Date Consult Requested: 06/12/20 Reason for Consult: Septic shock Patient History Reviewed: Yes Notified Requestor: Yes
[2020-06-12] MEDS ORDERED: Ropivacaine 34 ML, dexAMETHasone 8 MG, EPINEPHrine 0.4 MG, Sodium Chloride 0.9% 43.6 ML NERVRT SCH ×4 (12:30)
[2020-06-12] MEDS ORDERED: Lidocaine 1% with EPINEPHrine 1:100,000 50 ML MDV ONE (12:59)
[2020-06-12] MEDS ORDERED: Bupivacaine 0.5% 50 ML MDV ONE (12:59)
[2020-06-12] MEDS ORDERED: ePHEDrine 50 MG/ML SDV ONE (13:01)
[2020-06-12] MEDS ORDERED: Sodium Chloride 0.9% 10 ML ONE (13:02)
[2020-06-12] MEDS ORDERED: Meropenem 500 MG SDV ONE (13:02)
[2020-06-12] MEDS ORDERED: Dextrose 5%-Ringers 1,000 ML ONE (13:51)
[2020-06-12] MEDS ORDERED: Heparin Sodium 5,000 UNITS in Sodium Chloride 0.9% 500 ML IV SCH ×4 (14:00)
[2020-06-12] MEDS: HYDROmorphone/Normal Saline 15 MG/30 ML PCA IV PRN (14:39)
[2020-06-12] MEDS ORDERED: Naloxone 0.4 MG/ML SDV IV PRN (15:00)
[2020-06-12] MEDS ORDERED: hydrOXYzine HCL 100 MG/2 ML SDV IM PRN (15:00)
[2020-06-12] MEDS: Piperacillin/Tazobactam/Dext 2.25 GM in Premix Bag 1 BAG IV SCH ×2 (15:20→21:00)
--- NOTE | 2020-06-12 15:22 | CR ---
CHEST: Portable 06/12/2020 at 3:01 PM CLINICAL HISTORY:Line placement COMPARISON:CT 06/11/2020 FINDINGS: Patient has a left subclavian catheter. The tip is in the superior vena cava atrial junction region. Heart is enlarged. Pulmonary vascularity is normal. There is no evidence of pneumothorax. There is left to pleural effusion and underlying airspace disease. IMPRESSION: Interval placement of a left subclavian catheter. There is no evidence of pneumothorax Large left pleural effusion and some left lower lobe airspace disease. This is also seen on CT chest from 06/11/2020
[2020-06-12] MEDS ORDERED: MVI, Adult with Vitamin K 10 ML, Thiamine 100 MG, Zinc/Copper/Manganese/Selenium 1 ML i... IV ONE ×4 (16:00)
[2020-06-12] MEDS: Linezolid 600 MG in Premix Bag 1 BAG IV SCH (16:59)
[2020-06-12] MEDS: Magnesium Sulfate/Water 2 GM/50 ML BAG IV SCH ×2 (17:18→22:02)
[2020-06-13] MEDS: Dextrose 5%-Lactated Ringers 1,000 ML IV SCH ×3 (01:12→15:34)
[2020-06-13] MEDS: Piperacillin/Tazobactam/Dext 2.25 GM in Premix Bag 1 BAG IV SCH ×4 (01:28→20:36)
[2020-06-13] MEDS: Linezolid 600 MG in Premix Bag 1 BAG IV SCH ×2 (02:07→15:34)
[2020-06-13] MEDS: Magnesium Sulfate/Water 2 GM/50 ML BAG IV SCH ×4 (05:00→21:30)
[2020-06-13] MEDS ORDERED: Lactated Ringers 500 ML IV ONE (06:00)
[2020-06-13] MEDS ORDERED: Sodium Polystyrene Sulfonate 15 GM/60 ML Susp 60 ML Bot PO ONE ×2 (08:15→08:45)
[2020-06-13] MEDS ORDERED: Furosemide 20 MG/2 ML VIAL IVPUSH ONE ×2 (10:00→17:30)
[2020-06-13] MEDS ORDERED: Calcium Gluconate 2 GM in Sodium Chloride 0.9% 100 ML IV ONE ×2 (11:00→17:50)
--- NOTE | 2020-06-13 11:18 | PCM.CONSN ---
- General Info Date of Service: 06/13/20 Subjective Update: Mr. Gudino has been more stable following surgery yesterday, now off of the norepinephrine. Renal function is mildly worse over the last 24 hours likely secondary to hypotension experienced early yesterday morning. He otherwise feels well and denies significant shortness of breath or chest pain. Functional Status: Reports: Tolerating Diet, Ambulating, Urinating - Review of Systems General: Reports: Weakness, Fatigue. Denies: Fever, Chills Pulmonary: Reports: No Symptoms Cardiovascular: Reports: No Symptoms Gastrointestinal: Reports: Abdominal Pain. Denies: Difficulty Swallowing, Hematochezia, Melena, Nausea, Vomiting - Patient Data Vitals - Most Recent: Last Vital Signs Temp 97.0 F 06/13/20 07:00 Pulse 70 06/13/20 09:00 Resp 9 L 06/13/20 09:00 BP 129/78 06/13/20 09:00 Pulse Ox 98 06/13/20 09:00 Weight - Most Recent: 152 lb I&O - Last 24 Hours: Intake & Output 06/12/20 06/13/20 06/13/20 22:59 06:59 14:59 Intake Total 1010 2787 150 Output Total 579 201 Balance 431 2586 150 Lab Results Last 24 Hours: Laboratory Results - last 24 hr 06/12/20 06/12/20 06/12/20 Range/Units 07:18 16:30 16:30 WBC 11.7 H (4.5-11.0) K/uL RBC 3.27 L (4.30-5.90) M/uL Hgb 9.5 L D (12.0-15.0) g/dL Hct 29.4 L (40.0-54.0) % MCV 90 (80-98) fL MCH 29 (27-31) pg MCHC 32 (32-36) % Plt Count 147 L (150-400) K/uL Puncture Site ABG pH (7.350-7.450) ABG pCO2 (35.0-42.0) mmHg ABG pO2 (75.0-100.0) mmHg ABG HCO3 (22.0-26.0) mmol/L ABG Total CO2 (23.0-27.0) mmol/L ABG O2 Saturation (95.0-98.0) % ABG O2 Content (15.0-23.0) %vol ABG Base Excess mm/L ABG Hemoglobin (13.5-18.0) g/dL ABG Oxyhemoglobin % ABG Carboxyhemoglobin (0.0-1.6) % ABG Methemoglobin % Brooks Test O2 Delivery Device Sodium (140-148) mmol/L Potassium (3.6-5.2) mmol/L Chloride (100-108) mmol/L Carbon Dioxide (21-32) mmol/L Anion Gap (5.0-14.0) mmol/L BUN (7-18) mg/dL Creatinine (0.8-1.3) mg/dL Est Cr Clr Drug Dosing mL/min Estimated GFR (MDRD) (>60) Glucose (74-106) mg/dL Lactic Acid (0.4-2.0) mmol/L Calcium (8.5-10.1) mg/dL POC WB Ioniz Calcium (1.12-1.32) mmol/L Phosphorus (2.5-4.9) mg/dL Total Bilirubin (0.2-1.0) mg/dL AST (15-37) U/L ALT (12-78) U/L Alkaline Phosphatase (46-116) U/L Lactate Dehydrogenase 306 H (85-227) U/L Total Protein (6.4-8.2) g/dL Albumin (3.4-5.0) g/dL Globulin (2.3-3.5) g/dL Albumin/Globulin Ratio (1.2-2.2) Ur Random Sodium (20-110) mmol/L Ur Random Potassium (12-62) mmol/L Ur Random Chloride (55-125) mmol/L Blood Type A POSITIVE Gel Antibody Screen Negative Crossmatch See Detail 06/12/20 06/12/20 06/12/20 Range/Units 16:47 17:38 22:00 WBC (4.5-11.0) K/uL RBC (4.30-5.90) M/uL Hgb (12.0-15.0) g/dL Hct (40.0-54.0) % MCV (80-98) fL MCH (27-31) pg MCHC (32-36) % Plt Count (150-400) K/uL Puncture Site A-line ABG pH 7.313 L (7.350-7.450) ABG pCO2 23.3 L (35.0-42.0) mmHg ABG pO2 121.0 H (75.0-100.0) mmHg ABG HCO3 11.5 L (22.0-26.0) mmol/L ABG Total CO2 10.9 L (23.0-27.0) mmol/L ABG O2 Saturation 98.2 H (95.0-98.0) % ABG O2 Content 13.0 L (15.0-23.0) %vol ABG Base Excess -13.2 mm/L ABG Hemoglobin 9.5 L (13.5-18.0) g/dL ABG Oxyhemoglobin 95.7 % ABG Carboxyhemoglobin 1.3 (0.0-1.6) % ABG Methemoglobin 1.2 % Brooks Test N/a O2 Delivery Device Nasal cannula Sodium 137 L 137 L (140-148) mmol/L Potassium 5.6 H 5.7 H (3.6-5.2) mmol/L Chloride 111 H 109 H (100-108) mmol/L Carbon Dioxide 11 L 14 L (21-32) mmol/L Anion Gap 20.6 H 19.7 H (5.0-14.0) mmol/L BUN 42 H 43 H (7-18) mg/dL Creatinine 2.4 H 2.5 H (0.8-1.3) mg/dL Est Cr Clr Drug Dosing 26.21 25.17 mL/min Estimated GFR (MDRD) 27 L 26 L (>60) Glucose 104 114 H (74-106) mg/dL Lactic Acid (0.4-2.0) mmol/L Calcium 6.9 L* 6.9 L* (8.5-10.1) mg/dL POC WB Ioniz Calcium (1.12-1.32) mmol/L Phosphorus (2.5-4.9) mg/dL Total Bilirubin (0.2-1.0) mg/dL AST (15-37) U/L ALT (12-78) U/L Alkaline Phosphatase (46-116) U/L Lactate Dehydrogenase (85-227) U/L Total Protein (6.4-8.2) g/dL Albumin (3.4-5.0) g/dL Globulin (2.3-3.5) g/dL Albumin/Globulin Ratio (1.2-2.2) Ur Random Sodium (20-110) mmol/L Ur Random Potassium (12-62) mmol/L Ur Random Chloride (55-125) mmol/L Blood Type Gel Antibody Screen Crossmatch 06/13/20 06/13/20 06/13/20 Range/Units 05:00 05:02 05:02 WBC 15.3 H (4.5-11.0) K/uL RBC 3.79 L (4.30-5.90) M/uL Hgb 11.0 L (12.0-15.0) g/dL Hct 33.0 L (40.0-54.0) % MCV 87 (80-98) fL MCH 29 (27-31) pg MCHC 33 (32-36) % Plt Count 150 (150-400) K/uL Puncture Site A-line ABG pH 7.321 L (7.350-7.450) ABG pCO2 24.2 L (35.0-42.0) mmHg ABG pO2 87.8 (75.0-100.0) mmHg ABG HCO3 12.2 L (22.0-26.0) mmol/L ABG Total CO2 11.3 L (23.0-27.0) mmol/L ABG O2 Saturation 96.2 (95.0-98.0) % ABG O2 Content 14.9 L (15.0-23.0) %vol ABG Base Excess -12.2 mm/L ABG Hemoglobin 11.2 L (13.5-18.0) g/dL ABG Oxyhemoglobin 94.4 % ABG Carboxyhemoglobin 1.1 (0.0-1.6) % ABG Methemoglobin 0.8 % Brooks Test A-line O2 Delivery Device Sodium 136 L (140-148) mmol/L Potassium 5.9 H (3.6-5.2) mmol/L Chloride 110 H (100-108) mmol/L Carbon Dioxide 14 L (21-32) mmol/L Anion Gap 17.9 H (5.0-14.0) mmol/L BUN 43 H (7-18) mg/dL Creatinine 2.6 H (0.8-1.3) mg/dL Est Cr Clr Drug Dosing 24.20 mL/min Estimated GFR (MDRD) 25 L (>60) Glucose 124 H (74-106) mg/dL Lactic Acid (0.4-2.0) mmol/L Calcium 6.8 L* (8.5-10.1) mg/dL POC WB Ioniz Calcium (1.12-1.32) mmol/L Phosphorus 6.5 H (2.5-4.9) mg/dL Total Bilirubin 2.7 H D (0.2-1.0) mg/dL AST 137 H (15-37) U/L ALT 157 H (12-78) U/L Alkaline Phosphatase 261 H (46-116) U/L Lactate Dehydrogenase 223 (85-227) U/L Total Protein 4.0 L (6.4-8.2) g/dL Albumin 1.8 L (3.4-5.0) g/dL Globulin 2.2 L (2.3-3.5) g/dL Albumin/Globulin Ratio 0.8 L (1.2-2.2) Ur Random Sodium (20-110) mmol/L Ur Random Potassium (12-62) mmol/L Ur Random Chloride (55-125) mmol/L Blood Type Gel Antibody Screen Crossmatch 06/13/20 06/13/20 06/13/20 Range/Units 08:15 08:18 08:19 WBC (4.5-11.0) K/uL RBC (4.30-5.90) M/uL Hgb (12.0-15.0) g/dL Hct (40.0-54.0) % MCV (80-98) fL MCH (27-31) pg MCHC (32-36) % Plt Count (150-400) K/uL Puncture Site ABG pH (7.350-7.450) ABG pCO2 (35.0-42.0) mmHg ABG pO2 (75.0-100.0) mmHg ABG HCO3 (22.0-26.0) mmol/L ABG Total CO2 (23.0-27.0) mmol/L ABG O2 Saturation (95.0-98.0) % ABG O2 Content (15.0-23.0) %vol ABG Base Excess mm/L ABG Hemoglobin (13.5-18.0) g/dL ABG Oxyhemoglobin % ABG Carboxyhemoglobin (0.0-1.6) % ABG Methemoglobin % Brooks Test O2 Delivery Device Sodium (140-148) mmol/L Potassium (3.6-5.2) mmol/L Chloride (100-108) mmol/L Carbon Dioxide (21-32) mmol/L Anion Gap (5.0-14.0) mmol/L BUN (7-18) mg/dL Creatinine (0.8-1.3) mg/dL Est Cr Clr Drug Dosing mL/min Estimated GFR (MDRD) (>60) Glucose (74-106) mg/dL Lactic Acid 1.5 (0.4-2.0) mmol/L Calcium (8.5-10.1) mg/dL POC WB Ioniz Calcium 1.01 L* (1.12-1.32) mmol/L Phosphorus (2.5-4.9) mg/dL Total Bilirubin (0.2-1.0) mg/dL AST (15-37) U/L ALT (12-78) U/L Alkaline Phosphatase (46-116) U/L Lactate Dehydrogenase (85-227) U/L Total Protein (6.4-8.2) g/dL Albumin (3.4-5.0) g/dL Globulin (2.3-3.5) g/dL Albumin/Globulin Ratio (1.2-2.2) Ur Random Sodium 12 L (20-110) mmol/L Ur Random Potassium 78.6 H (12-62) mmol/L Ur Random Chloride 49 L (55-125) mmol/L Blood Type Gel Antibody Screen Crossmatch Adan Results Last 24 Hours: Microbiology 06/12/20 13:57 Gram Stain - Final Gallbladder Wound Culture - Preliminary Anaerobic Culture - Preliminary NO GROWTH AFTER 1 DAY 06/12/20 10:03 Urine Culture - Preliminary Urine, Catheterized NO GROWTH AFTER 1 DAY Med Orders - Current: Current Medications Hydromorphone HCl (Dilaudid Crystal Cutter 15 Mg In Ns 30 Ml) 0 mg IV ASDIRECTED PRN; Protocol PRN Reason: I&C TECH PAIN CONTROL Last Admin: 06/12/20 14:39 Dose: 0.3 mg Documented by: Hydroxyzine HCl (Vistaril) 100 mg IM Q4H PRN PRN Reason: pain Aztreonam 1 gm/ Sodium (Chloride) 50 mls @ 100 mls/hr IV Q8H [facility] Last Admin: 06/13/20 05:13 Dose: 100 mls/hr Documented by: Piperacillin/Tazobactam/ (Dextrose 2.25 gm/ Premix) 50 mls @ 100 mls/hr IV Q6H [facility] Last Admin: 06/13/20 07:26 Dose: 100 mls/hr Documented by: Heparin Sodium (Porcine) 5,000 (units/ Sodium Chloride) 501 mls @ 1 mls/hr IV ASDIRECTED [facility] Last Admin: 06/12/20 16:27 Dose: 1 mls/hr Documented by: Heparin Sodium (Porcine) 5,000 (units/ Sodium Chloride) 501 mls @ 1 mls/hr IV ASDIRECTED [facility] Last Admin: 06/12/20 16:28 Dose: 1 mls/hr Documented by: Dextrose/Lactated Ringer's (Dextrose 5%-Lactated Ringers) 1,000 mls @ 150 mls/hr IV ASDIRECTED [facility] Stop: 06/13/20 11:59 Last Admin: 06/13/20 06:45 Dose: 150 mls/hr Documented by: Magnesium Sulfate (Magnesium Sulfate In Water Premix) 2 gm in 50 mls @ 25 mls/hr IV Q6HR [facility] Stop: 06/15/20 11:59 Last Admin: 06/13/20 09:37 Dose: 25 mls/hr Documented by: Linezolid 600 mg/ Premix 300 mls @ 300 mls/hr IV Q12H [facility] Last Admin: 06/13/20 02:07 Dose: 300 mls/hr Documented by: Albumin Human (Albumin 25%) 25 gm in 100 mls @ 25 mls/hr IV Q24H [facility] Stop: 06/16/20 13:59 Last Admin: 06/13/20 09:37 Dose: 25 mls/hr Documented by: Multivitamins/Minerals 10 ml/Zinc 1 ml/ Amino Acids/Dextrose 1,011 mls @ 100 mls/hr IV .BY DURATION [facility] Amino Acids/Dextrose (Clinimix 5/15) 1,000 mls @ 100 mls/hr IV .BY DURATION [facility] Dextrose/Lactated Ringer's (Dextrose 5%-Lactated Ringers) 1,000 mls @ 50 mls/hr IV ASDIRECTED [facility] Calcium Gluconate 2 gm/ Sodium (Chloride) 120 mls @ 100 mls/hr IV ONETIME ONE Stop: 06/13/20 12:11 Naloxone HCl (Narcan) 0.1 mg IV ASDIRECTED PRN PRN Reason: decreased respiratory rate Discontinued Medications Bupivacaine HCl (Marcaine 0.5%) Confirm Administered Dose 50 ml .ROUTE .STK-MED ONE Stop: 06/12/20 13:00 Ropivacaine 34 ml/Dexamethasone 8 mg/Epinephrine HCl 0.4 mg/ Sodium Chloride 43.6 ml 0 ml NERVRT ASDIRECTED [facility] Last Admin: 06/12/20 13:30 Dose: 80 syringe Documented by: Dexamethasone (Decadron) Confirm Administered Dose 4 mg .ROUTE .STK-MED ONE Stop: 06/12/20 10:46 Ephedrine Sulfate (Ephedrine Sulfate) Confirm Administered Dose 50 mg .ROUTE .STK-MED ONE Stop: 06/12/20 13:02 Fentanyl (Sublimaze) Confirm Administered Dose 250 mcg .ROUTE .STK-MED ONE Stop: 06/12/20 10:48 Furosemide (Lasix) 10 mg IVPUSH ONETIME ONE Stop: 06/13/20 10:01 Last Admin: 06/13/20 09:37 Dose: 10 mg Documented by: Glycopyrrolate (Robinul) Confirm Administered Dose 1 mg .ROUTE .STK-MED ONE Stop: 06/12/20 10:46 Heparin Sodium (Porcine) (Heparin Lock Flush 100 Units/Ml) Confirm Administered Dose 1,000 units .ROUTE .STK-MED ONE Stop: 06/12/20 10:40 Dextrose/Lactated Ringer's (Dextrose 5%-Lactated Ringers) 1,000 mls @ 200 mls/hr IV ASDIRECTED [facility] Last Admin: 06/12/20 04:15 Dose: 100 mls/hr Documented by: Aztreonam 1 gm/ Sodium (Chloride) 50 mls @ 100 mls/hr IV Q8H [facility] Last Admin: 06/12/20 05:56 Dose: 100 mls/hr Documented by: Lactated Ringer's (Ringers, Lactated) 500 mls @ 500 mls/hr IV BOLUS ONE Stop: 06/12/20 05:54 Last Admin: 06/12/20 04:57 Dose: 500 mls/hr Documented by: Lactated Ringer's (Ringers, Lactated) 1,000 mls @ 750 mls/hr IV ONETIME ONE Stop: 06/12/20 08:03 Last Admin: 06/12/20 07:24 Dose: 750 mls/hr Documented by: Norepinephrine Bitartrate 8 mg (/ Dextrose/Water) 258 mls @ 3.87 mls/hr IV TITRATE [facility]; Protocol Last Infusion: 06/12/20 15:19 Dose: 0 mcg/min, 0 mls/hr Documented by: Dextrose/Water (Dextrose 5% In Water) Confirm Administered Dose 250 mls @ as directed .ROUTE .STK-MED ONE Stop: 06/12/20 06:47 Last Admin: 06/12/20 17:24 Dose: Not Given Documented by: Piperacillin/Tazobactam/ (Dextrose 3.375 gm/ Premix) 50 mls @ 100 mls/hr IV Q6H [facility] Last Admin: 06/12/20 07:36 Dose: 100 mls/hr Documented by: Sodium Chloride (Normal Saline) Confirm Administered Dose 10 mls @ as directed .ROUTE .STK-MED ONE Stop: 06/12/20 13:03 Dextrose/Ringer's (Dextrose 5%-Ringers) Confirm Administered Dose 1,000 mls @ as directed .ROUTE .STK-MED ONE Stop: 06/12/20 13:52 Multivitamins/Minerals 10 ml/Thiamine HCl 100 mg/ Zinc 1 ml / Dextrose/Lactated Ringer's 1,012 mls @ 150 mls/hr IV ONETIME ONE Stop: 06/12/20 22:44 Last Admin: 06/12/20 16:55 Dose: 150 mls/hr Documented by: Lactated Ringer's (Ringers, Lactated) 500 mls @ 500 mls/hr IV ONETIME ONE Stop: 06/13/20 06:59 Last Admin: 06/13/20 06:00 Dose: 500 mls/hr Documented by: Lidocaine/Epinephrine (Xylocaine 1% With Epinephrine 1:100,000) Confirm Administered Dose 50 ml .ROUTE .STK-MED ONE Stop: 06/12/20 13:00 Meropenem (Merrem) Confirm Administered Dose 500 mg .ROUTE .STK-MED ONE Stop: 06/12/20 13:03 Neostigmine Methylsulfate (Neostigmine) Confirm Administered Dose 5 mg .ROUTE .STK-MED ONE Stop: 06/12/20 10:46 Norepinephrine Bitartrate (Levophed) Confirm Administered Dose 8 mg .ROUTE .STK- MED ONE Stop: 06/12/20 06:46 Last Admin: 06/12/20 17:46 Dose: Not Given Documented by: Ondansetron HCl (Zofran) Confirm Administered Dose 4 mg .ROUTE .STK-MED ONE Stop: 06/12/20 10:46 Propofol (Diprivan 20 Ml) Confirm Administered Dose 200 mg .ROUTE .STK-MED ONE Stop: 06/12/20 10:46 Rocuronium [place] (Zemuron) Confirm Administered Dose 50 mg .ROUTE .STK-MED ONE Stop: 06/12/20 10:46 Sodium Polystyrene Sulfonate (Kayexalate) 30 gm PO ONETIME ONE Stop: 06/13/20 08:46 Last Admin: 06/13/20 08:55 Dose: 30 gm Documented by: Succinylcholine Chloride (Quelicin) Confirm Administered Dose 200 mg .ROUTE .STK-MED ONE Stop: 06/12/20 10:46 - Exam Quality Assessment: DVT Prophylaxis General: Alert, Oriented, Cooperative, Mild Distress Lungs: Clear to Auscultation, Normal Respiratory Effort Cardiovascular: Regular Rate, Regular Rhythm, No Murmurs GI/Abdominal Exam: Soft, No Organomegaly, Tender. No: Distended, Guarding, Rigid, Rebound Extremities: Non-Tender, Pedal Edema Sepsis Event Note - Evaluation Sepsis Screening Result: No Definite Risk - Focused Exam Vital Signs: Vital Signs Temp Temp Pulse Resp BP BP Pulse Ox 06/13/20 09:00 70 9 L 129/78 98 06/13/20 08:00 68 107/68 06/13/20 07:00 97.0 F 80 15 126/74 97 06/13/20 06:00 12 102/67 117/71 97 06/13/20 05:00 96.6 F L 17 102/51 L 112/62 96 06/13/20 04:00 13 100/51 L 102/65 95 06/13/20 03:00 13 101/50 L 111/61 95 06/13/20 02:05 97.7 F 18 99/49 L 118/64 96 06/13/20 01:48 97.7 F 19 101/50 L 123/69 96 06/13/20 01:33 97.7 F 19 101/50 L 119/71 97 06/13/20 01:19 97.7 F 24 H 101/49 L 116/65 97 06/13/20 01:00 97.7 F 16 98/47 L 118/65 96 06/13/20 00:00 15 100/49 L 117/65 95 Consult PN Assessment/Plan Procedures: Procedures ASSAY OF CALCIUM (09/06/19) ASSAY OF MAGNESIUM (06/24/19) ASSAY OF NATRIURETIC PEPTIDE (06/24/19) ASSAY OF PARATHORMONE (09/06/19) ASSAY OF PHOSPHORUS (06/24/19) BLOOD GASES ANY COMBINATION (09/06/19) BLOOD TYPING SEROLOGIC ABO (06/24/19) BLOOD TYPING SEROLOGIC RH(D) (06/24/19) COMPLETE CBC W/AUTO DIFF WBC (09/06/19) CT NECK SPINE W/O DYE (09/06/19) GLUCOSE BLOOD TEST (09/06/19) MEASURE BLOOD OXYGEN LEVEL (06/24/19) METABOLIC PANEL TOTAL CA (09/06/19) RBC ANTIBODY SCREEN (06/24/19) ROUTINE VENIPUNCTURE (09/06/19) SPECIAL STAINS GROUP 2 (06/24/19) TISSUE EXAM BY PATHOLOGIST (06/24/19) TISSUE EXAM BY PATHOLOGIST (06/24/19) URINALYSIS AUTO W/SCOPE (09/06/19) VITAMIN D 25 HYDROXY (09/06/19) WITHDRAWAL OF ARTERIAL BLOOD (09/06/19) X-RAY XM UPR GI TRC 1CNTRST (06/24/19) Problem List Initiated/Reviewed/Updated: Yes My Orders Last 24 Hours: My Active Orders 06/13/20 11:00 Calcium Gluconate 2 gm Sodium Chloride 0.9% [Normal Saline] 100 ml IV ONETIME Plan: ASSESSMENT AND RECOMMENDATIONS 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 Viveros CHRONIC KIDNEY DISEASE STAGE IV-mild increase in creatinine from baseline, likely secondary to hypotension experienced with Septic shock. Urine output has remained adequate -Closely monitor urine output and renal function -Maintain MAP of greater than 65 HYPERKALEMIA-secondary to underlying kidney disease -Kayexalate 30 g p.o. now -Reassess potassium later today and in a.m. STATUS POST CHIDI-EN-Y GASTRIC BYPASS SURGERY
[2020-06-13] MEDS: 1: Amino Acids 5%/Dextrose 15% 1,000 ML with MVI, Adult with Vitamin K 10 ML, Zinc/Copp IV SCH ×6 (12:49→23:34)
[2020-06-14] MEDS: Piperacillin/Tazobactam/Dext 2.25 GM in Premix Bag 1 BAG IV SCH ×4 (01:29→19:49)
[2020-06-14] MEDS ORDERED: Lactated Ringers 500 ML IV SCH (02:25)
[2020-06-14] MEDS: Linezolid 600 MG in Premix Bag 1 BAG IV SCH ×2 (03:21→14:47)
[2020-06-14] MEDS: Magnesium Sulfate/Water 2 GM/50 ML BAG IV SCH ×4 (03:21→21:35)
[2020-06-14] MEDS ORDERED: Furosemide 20 MG/2 ML VIAL IVPUSH ONE (04:33)
[2020-06-14] MEDS ORDERED: Furosemide 40 MG/4 ML VIAL IVPUSH ONE (10:00)
[2020-06-14] MEDS: Docusate Sodium 100 MG Cap PO SCH ×2 (11:35→21:35)
[2020-06-14] MEDS: Bisacodyl 5 MG Tab PO SCH ×2 (11:35→21:35)
[2020-06-14] MEDS: 1: Amino Acids 5%/Dextrose 15% 1,000 ML with MVI, Adult with Vitamin K 10 ML, Zinc/Copp IV SCH ×6 (11:43→21:35)
--- NOTE | 2020-06-14 12:26 | PCM.PN ---
- General Info Date of Service: 06/14/20 Subjective Update: Patient noted by RN and myself to be rather edematous in the periphery. No other issues noted. Lab findings are reviewed with team. Functional Status: Reports: Pain Controlled, Tolerating Diet, Urinating - Review of Systems General: Reports: No Symptoms HEENT: Reports: No Symptoms Pulmonary: Reports: No Symptoms Cardiovascular: Reports: No Symptoms Gastrointestinal: Reports: No Symptoms Genitourinary: Reports: No Symptoms Musculoskeletal: Reports: No Symptoms Skin: Reports: No Symptoms Neurological: Reports: No Symptoms Psychiatric: Reports: No Symptoms - Patient Data Vitals - Most Recent: Last Vital Signs Temp 97 F 06/14/20 12:00 Pulse 81 06/14/20 12:00 Resp 13 06/14/20 12:00 BP 187/105 H 06/14/20 12:00 Pulse Ox 99 06/14/20 12:00 Weight - Most Recent: 177 lb 7.554 oz I&O - Last 24 Hours: Intake & Output 06/13/20 06/14/20 06/14/20 22:59 06:59 14:59 Intake Total 2284 2488 Output Total 150 319 240 Balance 2134 2169 -240 Lab Results Last 24 Hours: Laboratory Results - last 24 hr 06/13/20 06/13/20 06/13/20 Range/Units 12:01 16:44 16:44 WBC (4.5-11.0) K/uL RBC (4.30-5.90) M/uL Hgb (12.0-15.0) g/dL Hct (40.0-54.0) % MCV (80-98) fL MCH (27-31) pg MCHC (32-36) % Plt Count (150-400) K/uL Puncture Site ABG pH (7.350-7.450) ABG pCO2 (35.0-42.0) mmHg ABG pO2 (75.0-100.0) mmHg ABG HCO3 (22.0-26.0) mmol/L ABG Total CO2 (23.0-27.0) mmol/L ABG O2 Saturation (95.0-98.0) % ABG O2 Content (15.0-23.0) %vol ABG Base Excess mm/L ABG Hemoglobin (13.5-18.0) g/dL ABG Oxyhemoglobin % ABG Carboxyhemoglobin (0.0-1.6) % ABG Methemoglobin % O2 Delivery Device Oxygen Flow Rate L Sodium 136 L (140-148) mmol/L Potassium 5.2 (3.6-5.2) mmol/L Chloride 109 H (100-108) mmol/L Carbon Dioxide 13 L (21-32) mmol/L Anion Gap 19.2 H (5.0-14.0) mmol/L BUN 49 H (7-18) mg/dL Creatinine 2.5 H (0.8-1.3) mg/dL Est Cr Clr Drug Dosing 25.17 mL/min Estimated GFR (MDRD) 26 L (>60) Glucose 183 H (74-106) mg/dL Lactic Acid 1.7 1.1 (0.4-2.0) mmol/L Calcium 7.3 L (8.5-10.1) mg/dL POC WB Ioniz Calcium (1.12-1.32) mmol/L Phosphorus (2.5-4.9) mg/dL Magnesium (1.8-2.4) mg/dL Total Bilirubin (0.2-1.0) mg/dL AST (15-37) U/L ALT (12-78) U/L Alkaline Phosphatase (46-116) U/L NT-Pro-B Natriuret Pep (5-125) pg/mL Total Protein (6.4-8.2) g/dL Albumin (3.4-5.0) g/dL Globulin (2.3-3.5) g/dL Albumin/Globulin Ratio (1.2-2.2) 06/13/20 06/14/20 06/14/20 Range/Units 16:44 04:35 04:35 WBC 16.0 H (4.5-11.0) K/uL RBC 3.86 L (4.30-5.90) M/uL Hgb 11.1 L (12.0-15.0) g/dL Hct 33.3 L (40.0-54.0) % MCV 86 (80-98) fL MCH 29 (27-31) pg MCHC 33 (32-36) % Plt Count 152 (150-400) K/uL Puncture Site ABG pH (7.350-7.450) ABG pCO2 (35.0-42.0) mmHg ABG pO2 (75.0-100.0) mmHg ABG HCO3 (22.0-26.0) mmol/L ABG Total CO2 (23.0-27.0) mmol/L ABG O2 Saturation (95.0-98.0) % ABG O2 Content (15.0-23.0) %vol ABG Base Excess mm/L ABG Hemoglobin (13.5-18.0) g/dL ABG Oxyhemoglobin % ABG Carboxyhemoglobin (0.0-1.6) % ABG Methemoglobin % O2 Delivery Device Oxygen Flow Rate L Sodium 135 L (140-148) mmol/L Potassium 4.4 (3.6-5.2) mmol/L Chloride 107 (100-108) mmol/L Carbon Dioxide 20 L (21-32) mmol/L Anion Gap 12.4 (5.0-14.0) mmol/L BUN 60 H (7-18) mg/dL Creatinine 2.6 H (0.8-1.3) mg/dL Est Cr Clr Drug Dosing 24.20 mL/min Estimated GFR (MDRD) 25 L (>60) Glucose 166 H (74-106) mg/dL Lactic Acid (0.4-2.0) mmol/L Calcium 7.6 L (8.5-10.1) mg/dL POC WB Ioniz Calcium 1.06 L (1.12-1.32) mmol/L Phosphorus 6.1 H (2.5-4.9) mg/dL Magnesium 3.9 H (1.8-2.4) mg/dL Total Bilirubin 2.2 H (0.2-1.0) mg/dL AST 48 H (15-37) U/L ALT 97 H (12-78) U/L Alkaline Phosphatase 201 H (46-116) U/L NT-Pro-B Natriuret Pep 66222 H (5-125) pg/mL Total Protein 4.1 L (6.4-8.2) g/dL Albumin 1.8 L (3.4-5.0) g/dL Globulin 2.3 (2.3-3.5) g/dL Albumin/Globulin Ratio 0.8 L (1.2-2.2) 0106/14/20 06/14/20 Range/Units 04:35 04:35 04:35 WBC (4.5-11.0) K/uL RBC (4.30-5.90) M/uL Hgb (12.0-15.0) g/dL Hct (40.0-54.0) % MCV (80-98) fL MCH (27-31) pg MCHC (32-36) % Plt Count (150-400) K/uL Puncture Site Line ABG pH 7.369 (7.350-7.450) ABG pCO2 25.4 L (35.0-42.0) mmHg ABG pO2 128.0 H (75.0-100.0) mmHg ABG HCO3 14.3 L (22.0-26.0) mmol/L ABG Total CO2 13.1 L (23.0-27.0) mmol/L ABG O2 Saturation 98.6 H (95.0-98.0) % ABG O2 Content 15.9 (15.0-23.0) %vol ABG Base Excess -9.3 mm/L ABG Hemoglobin 11.6 L (13.5-18.0) g/dL ABG Oxyhemoglobin 95.9 % ABG Carboxyhemoglobin 1.9 H (0.0-1.6) % ABG Methemoglobin 0.8 % O2 Delivery Device Nasal cannula Oxygen Flow Rate L Sodium (140-148) mmol/L Potassium (3.6-5.2) mmol/L Chloride (100-108) mmol/L Carbon Dioxide (21-32) mmol/L Anion Gap (5.0-14.0) mmol/L BUN (7-18) mg/dL Creatinine (0.8-1.3) mg/dL Est Cr Clr Drug Dosing mL/min Estimated GFR (MDRD) (>60) Glucose (74-106) mg/dL Lactic Acid 1.0 (0.4-2.0) mmol/L Calcium (8.5-10.1) mg/dL POC WB Ioniz Calcium 1.06 L (1.12-1.32) mmol/L Phosphorus (2.5-4.9) mg/dL Magnesium (1.8-2.4) mg/dL Total Bilirubin (0.2-1.0) mg/dL AST (15-37) U/L ALT (12-78) U/L Alkaline Phosphatase (46-116) U/L NT-Pro-B Natriuret Pep (5-125) pg/mL Total Protein (6.4-8.2) g/dL Albumin (3.4-5.0) g/dL Globulin (2.3-3.5) g/dL Albumin/Globulin Ratio (1.2-2.2) Adan Results Last 24 Hours: Microbiology 06/12/20 13:57 Gram Stain - Final Gallbladder Wound Culture - Preliminary Pseudomonas Aeruginosa Anaerobic Culture - Preliminary NO GROWTH AFTER 2 DAYS 06/12/20 10:03 Urine Culture - Final Urine, Catheterized NO GROWTH AFTER 2 DAYS Med Orders - Current: Current Medications Bisacodyl (Dulcolax) 10 mg PO BID [facility] Last Admin: 06/14/20 11:35 Dose: 10 mg Documented by: Docusate Sodium (Colace) 100 mg PO BID [facility] Last Admin: 06/14/20 11:35 Dose: 100 mg Documented by: Hydromorphone HCl (Dilaudid [employer] 15 Mg In Ns 30 Ml) 0 mg IV ASDIRECTED PRN; Protocol PRN Reason: [employer] PAIN CONTROL Last Admin: 06/12/20 14:39 Dose: 0.3 mg Documented by: Hydroxyzine HCl (Vistaril) 100 mg IM Q4H PRN PRN Reason: pain Aztreonam 1 gm/ Sodium (Chloride) 50 mls @ 100 mls/hr IV Q8H [facility] Last Admin: 06/14/20 05:05 Dose: 100 mls/hr Documented by: Piperacillin/Tazobactam/ (Dextrose 2.25 gm/ Premix) 50 mls @ 100 mls/hr IV Q6H [facility] Last Admin: 06/14/20 08:06 Dose: 100 mls/hr Documented by: Heparin Sodium (Porcine) 5,000 (units/ Sodium Chloride) 501 mls @ 1 mls/hr IV ASDIRECTED [facility] Last Admin: 06/12/20 16:27 Dose: 1 mls/hr Documented by: Heparin Sodium (Porcine) 5,000 (units/ Sodium Chloride) 501 mls @ 1 mls/hr IV ASDIRECTED [facility] Last Admin: 06/12/20 16:28 Dose: 1 mls/hr Documented by: Magnesium Sulfate (Magnesium Sulfate In Water Premix) 2 gm in 50 mls @ 25 mls/hr IV Q6HR [facility] Stop: 06/15/20 11:59 Last Admin: 06/14/20 11:50 Dose: 25 mls/hr Documented by: Linezolid 600 mg/ Premix 300 mls @ 300 mls/hr IV Q12H [facility] Last Admin: 06/14/20 03:21 Dose: 300 mls/hr Documented by: Albumin Human (Albumin 25%) 25 gm in 100 mls @ 25 mls/hr IV Q24H [facility] Stop: 06/16/20 13:59 Last Admin: 06/14/20 11:37 Dose: 25 mls/hr Documented by: Multivitamins/Minerals 10 ml/Zinc 1 ml/ Amino Acids/Dextrose 1,011 mls @ 100 mls/hr IV .BY DURATION [facility] Last Admin: 06/14/20 11:43 Dose: 100 mls/hr Documented by: Amino Acids/Dextrose (Clinimix 5/15) 1,000 mls @ 100 mls/hr IV .BY DURATION [facility] Last Admin: 06/13/20 23:34 Dose: 100 mls/hr Documented by: Dextrose/Lactated Ringer's (Dextrose 5%-Lactated Ringers) 1,000 mls @ 50 mls/hr IV ASDIRECTED [facility] Last Admin: 06/13/20 15:34 Dose: 50 mls/hr Documented by: Lactated Ringer's (Ringers, Lactated) 500 mls @ 1,000 mls/hr IV ASDIRECTED [facility] Last Admin: 06/14/20 02:25 Dose: 1,000 mls/hr Documented by: Albumin Human (Albumin 25%) 25 gm in 100 mls @ 25 mls/hr IV Q24H [facility] Stop: 06/16/20 17:59 Naloxone HCl (Narcan) 0.1 mg IV ASDIRECTED PRN PRN Reason: decreased respiratory rate Discontinued Medications Bupivacaine HCl (Marcaine 0.5%) Confirm Administered Dose 50 ml .ROUTE .STK-MED ONE Stop: 06/12/20 13:00 Ropivacaine 34 ml/Dexamethasone 8 mg/Epinephrine HCl 0.4 mg/ Sodium Chloride 43.6 ml 0 ml NERVRT ASDIRECTED [facility] Last Admin: 06/12/20 13:30 Dose: 80 syringe Documented by: Dexamethasone (Decadron) Confirm Administered Dose 4 mg .ROUTE .[facility]-MED ONE Stop: 06/12/20 10:46 Ephedrine Sulfate (Ephedrine Sulfate) Confirm Administered Dose 50 mg .ROUTE .[facility] ONE Stop: 06/12/20 13:02 Fentanyl (Sublimaze) Confirm Administered Dose 250 mcg .ROUTE .[facility] ONE Stop: 06/12/20 10:48 Furosemide (Lasix) 10 mg IVPUSH ONETIME ONE Stop: 06/13/20 10:01 Last Admin: 06/13/20 09:37 Dose: 10 mg Documented by: Furosemide (Lasix) 20 mg IVPUSH ONETIME ONE Stop: 06/13/20 17:31 Last Admin: 06/13/20 17:54 Dose: 20 mg Documented by: Furosemide (Lasix) 10 mg IVPUSH ONETIME ONE Stop: 06/14/20 04:34 Last Admin: 06/14/20 05:05 Dose: 10 mg Documented by: Furosemide (Lasix) 40 mg IVPUSH ONETIME ONE Stop: 06/14/20 10:01 Last Admin: 06/14/20 11:46 Dose: 40 mg Documented by: Glycopyrrolate (Robinul) Confirm Administered Dose 1 mg .ROUTE .[facility] ONE Stop: 06/12/20 10:46 Heparin Sodium (Porcine) (Heparin Lock Flush 100 Units/Ml) Confirm Administered Dose 1,000 units .ROUTE .[facility] ONE Stop: 06/12/20 10:40 Dextrose/Lactated Ringer's (Dextrose 5%-Lactated Ringers) 1,000 mls @ 200 mls/hr IV ASDIRECTED [facility] Last Admin: 06/12/20 04:15 Dose: 100 mls/hr Documented by: Aztreonam 1 gm/ Sodium (Chloride) 50 mls @ 100 mls/hr IV Q8H [facility] Last Admin: 06/12/20 05:56 Dose: 100 mls/hr Documented by: Lactated Ringer's (Ringers, Lactated) 500 mls @ 500 mls/hr IV BOLUS ONE Stop: 06/12/20 05:54 Last Admin: 06/12/20 04:57 Dose: 500 mls/hr Documented by: Lactated Ringer's (Ringers, Lactated) 1,000 mls @ 750 mls/hr IV ONETIME ONE Stop: 06/12/20 08:03 Last Admin: 06/12/20 07:24 Dose: 750 mls/hr Documented by: Norepinephrine Bitartrate 8 mg (/ Dextrose/Water) 258 mls @ 3.87 mls/hr IV TITRATE SUNG; Protocol Last Infusion: 06/12/20 15:19 Dose: 0 mcg/min, 0 mls/hr Documented by: Dextrose/Water (Dextrose 5% In Water) Confirm Administered Dose 250 mls @ as directed .ROUTE .STK-MED ONE Stop: 06/12/20 06:47 Last Admin: 06/12/20 17:24 Dose: Not Given Documented by: Piperacillin/Tazobactam/ (Dextrose 3.375 gm/ Premix) 50 mls @ 100 mls/hr IV Q6H [facility] Last Admin: 06/12/20 07:36 Dose: 100 mls/hr Documented by: Sodium Chloride (Normal Saline) Confirm Administered Dose 10 mls @ as directed .ROUTE .STK-MED ONE Stop: 06/12/20 13:03 Dextrose/Ringer's (Dextrose 5%-Ringers) Confirm Administered Dose 1,000 mls @ as directed .ROUTE .STK-MED ONE Stop: 06/12/20 13:52 Dextrose/Lactated Ringer's (Dextrose 5%-Lactated Ringers) 1,000 mls @ 150 mls/hr IV ASDIRECTED [facility] Stop: 06/13/20 11:59 Last Admin: 06/13/20 06:45 Dose: 150 mls/hr Documented by: Multivitamins/Minerals 10 ml/Thiamine HCl 100 mg/ Zinc 1 ml / Dextrose/Lactated Ringer's 1,012 mls @ 150 mls/hr IV ONETIME ONE Stop: 06/12/20 22:44 Last Admin: 06/12/20 16:55 Dose: 150 mls/hr Documented by: Lactated Ringer's (Ringers, Lactated) 500 mls @ 500 mls/hr IV ONETIME ONE Stop: 06/13/20 06:59 Last Admin: 06/13/20 06:00 Dose: 500 mls/hr Documented by: Calcium Gluconate 2 gm/ Sodium (Chloride) 120 mls @ 100 mls/hr IV ONETIME ONE Stop: 06/13/20 12:11 Last Admin: 06/13/20 12:30 Dose: 100 mls/hr Documented by: Calcium Gluconate 2 gm/ Sodium (Chloride) 120 mls @ 100 mls/hr IV ONETIME ONE Stop: 06/13/20 19:01 Last Admin: 06/13/20 18:05 Dose: 100 mls/hr Documented by: Lidocaine/Epinephrine (Xylocaine 1% With Epinephrine 1:100,000) Confirm Administered Dose 50 ml .ROUTE .STK-MED ONE Stop: 06/12/20 13:00 Meropenem (Merrem) Confirm Administered Dose 500 mg .ROUTE .STK-MED ONE Stop: 06/12/20 13:03 Neostigmine Methylsulfate (Neostigmine) Confirm Administered Dose 5 mg .ROUTE .STK-MED ONE Stop: 06/12/20 10:46 Norepinephrine Bitartrate (Levophed) Confirm Administered Dose 8 mg .ROUTE .STK- MED ONE Stop: 06/12/20 06:46 Last Admin: 06/12/20 17:46 Dose: Not Given Documented by: Ondansetron HCl (Zofran) Confirm Administered Dose 4 mg .ROUTE .STK-MED ONE Stop: 06/12/20 10:46 Propofol (Diprivan 20 Ml) Confirm Administered Dose 200 mg .ROUTE .STK-MED ONE Stop: 06/12/20 10:46 Rocuronium Taylor (Zemuron) Confirm Administered Dose 50 mg .ROUTE .STK-MED ONE Stop: 06/12/20 10:46 Sodium Polystyrene Sulfonate (Kayexalate) 30 gm PO ONETIME ONE Stop: 06/13/20 08:46 Last Admin: 06/13/20 08:55 Dose: 30 gm Documented by: Succinylcholine Chloride (Quelicin) Confirm Administered Dose 200 mg .ROUTE .STK-MED ONE Stop: 06/12/20 10:46 - Exam Quality Assessment: Supplemental Oxygen, DVT Prophylaxis General: Alert, Oriented, Cooperative, No Acute Distress HEENT: Pupils Equal, EOMI Lungs: Clear to Auscultation, Normal Respiratory Effort Cardiovascular: Regular Rate, Regular Rhythm, No Murmurs GI/Abdominal Exam: Normal Bowel Sounds, Soft, Non-Tender, No Distention, No Abnormal Bruit, No Mass Extremities: Pedal Edema, Other (DIffuse peripheral edema) Skin: Warm, Dry Neurological: No New Focal Deficit Psy/Mental Status: Alert, Normal Affect, Normal Mood Sepsis Event Note - Evaluation Sepsis Screening Result: No Definite Risk - Focused Exam Vital Signs: Vital Signs Temp Pulse Resp BP BP Pulse Ox 06/14/20 12:00 97 F 81 13 187/105 H 99 06/14/20 11:00 74 179/100 H 06/14/20 10:18 96.8 F L 80 15 170/98 H 98 06/14/20 08:00 73 16 161/90 H 98 06/14/20 07:30 96.6 F L 06/14/20 07:00 79 16 168/83 H 169/96 H 98 06/14/20 06:00 12 165/78 H 162/90 H 99 06/14/20 05:00 12 167/78 H 163/92 H 98 06/14/20 04:00 98.0 F 14 166/91 H 98 06/14/20 03:00 12 161/77 H 161/86 H 99 06/14/20 02:00 12 164/79 H 156/88 H 98 06/14/20 01:00 12 163/81 H 150/88 H 98 - Problem List Review Problem List Initiated/Reviewed/Updated: Yes - My Orders Last 24 Hours: My Active Orders 06/15/20 08:54 CBC WITH AUTO DIFF [HEME] DAILY COMPREHENSIVE METABOLIC PN,CMP [CHEM] DAILY 06/16/20 08:54 CBC WITH AUTO DIFF [HEME] DAILY COMPREHENSIVE METABOLIC PN,CMP [CHEM] DAILY 06/17/20 08:54 CBC WITH AUTO DIFF [HEME] DAILY COMPREHENSIVE METABOLIC PN,CMP [CHEM] DAILY - Assessment Assessment:: HEENT: - No issues Cardiovascular - Patient is somewhat fluid overloaded due to the fluid resuscitation needed to manage his initial presentation of septic shock in the wake of cholecystectomy - Continue MIVF for now - Caution with bolus fluids - Patient is markedly edematous in the periphery - Lasix 40 mg IV x 1 today Pulmonary - Stable, no signs of pulmonary edema - Continue plan of care as we are Renal/Electrolytes - Lytes normalizing - Potassium and Creatinine are normalizing or stabilized - Will give some lasix today as above for peripheral edema - Patient getting 50 mg IV albumin today in addition to diuresis Gastrointestinal - Patient s/p cholecystectomy - Defer post-operative management to Gen Surg ID - Pseudomonas noted in gall bladder path report - Pansensitive and is on triple coverage including zosyn - Will defer to surgery but recommend consideration of narrowing coverage to zosyn Neuro/Musculoskeletal - No issues - PT to follow if appropriate Psych - appropriate mentation
[2020-06-14] MEDS ORDERED: Ciprofloxacin in D5W 400 MG in Premix Bag 1 BAG IV SCH ×4 (14:00→16:00)
[2020-06-14] MEDS: HYDROmorphone/Normal Saline 15 MG/30 ML PCA IV PRN (14:39)
[2020-06-14] MEDS: Dextrose 5%-Lactated Ringers 1,000 ML IV SCH (18:13)
[2020-06-15] MEDS: Piperacillin/Tazobactam/Dext 2.25 GM in Premix Bag 1 BAG IV SCH ×4 (02:09→20:44)
[2020-06-15] MEDS: Linezolid 600 MG in Premix Bag 1 BAG IV SCH ×2 (02:10→14:54)
[2020-06-15] MEDS: Magnesium Sulfate/Water 2 GM/50 ML BAG IV SCH ×2 (04:22→10:22)
[2020-06-15] MEDS ORDERED: Tamsulosin 0.4 MG Cap.ER PO ONE (07:30)
[2020-06-15] MEDS: Bisacodyl 5 MG Tab PO SCH ×2 (08:40→20:51)
[2020-06-15] MEDS: Docusate Sodium 100 MG Cap PO SCH ×2 (08:40→20:51)
[2020-06-15] MEDS ORDERED: Furosemide 40 MG/4 ML VIAL IVPUSH ONE (09:00)
[2020-06-15] MEDS: 1: Amino Acids 5%/Dextrose 15% 1,000 ML with MVI, Adult with Vitamin K 10 ML, Zinc/Copp IV SCH ×3 (10:12)
--- NOTE | 2020-06-15 12:23 | PCM.PN ---
- General Info Date of Service: 06/15/20 Subjective Update: Patient still needing some oxygen, breathing with is better No other concerns noted. Patient appears less edematous Surgery requesting to pull rios catheter - we will continue for time being. Functional Status: Reports: Pain Controlled - Review of Systems General: Reports: No Symptoms HEENT: Reports: No Symptoms Pulmonary: Reports: No Symptoms Cardiovascular: Reports: No Symptoms Gastrointestinal: Reports: No Symptoms - Patient Data Vitals - Most Recent: Last Vital Signs Temp 95.8 F L 06/15/20 04:00 Pulse 80 06/14/20 18:00 Resp 16 06/15/20 06:00 BP 165/87 H 06/15/20 06:00 Pulse Ox 97 06/15/20 06:00 Weight - Most Recent: 177 lb 7.554 oz I&O - Last 24 Hours: Intake & Output 06/14/20 06/15/20 06/15/20 22:59 06:59 14:59 Intake Total 2495 3344 Output Total 1375 1360 Balance 1120 1984 Lab Results Last 24 Hours: Laboratory Results - last 24 hr 06/13/20 06/14/20 06/15/20 Range/Units 08:40 17:00 04:30 WBC 16.6 H (4.5-11.0) K/uL RBC 3.53 L (4.30-5.90) M/uL Hgb 10.5 L (12.0-15.0) g/dL Hct 30.1 L (40.0-54.0) % MCV 85 (80-98) fL MCH 30 (27-31) pg MCHC 35 (32-36) % Plt Count 131 L (150-400) K/uL Neut % (Auto) 90 H (36-66) % Lymph % (Auto) 4 L (24-44) % Rankin % (Auto) 6 (2-6) % Eos % (Auto) 0 L (2-4) % Baso % (Auto) 0 (0-1) % Sodium 138 L (140-148) mmol/L Potassium 3.7 (3.6-5.2) mmol/L Chloride 106 (100-108) mmol/L Carbon Dioxide 18 L (21-32) mmol/L Anion Gap 17.7 H (5.0-14.0) mmol/L BUN 67 H (7-18) mg/dL Creatinine 2.6 H (0.8-1.3) mg/dL Est Cr Clr Drug Dosing 24.20 mL/min Estimated GFR (MDRD) 25 L (>60) Glucose 138 H (74-106) mg/dL Calcium 7.6 L (8.5-10.1) mg/dL Phosphorus (2.5-4.9) mg/dL Magnesium (1.8-2.4) mg/dL Total Bilirubin (0.2-1.0) mg/dL AST (15-37) U/L ALT (12-78) U/L Alkaline Phosphatase (46-116) U/L NT-Pro-B Natriuret Pep (5-125) pg/mL Total Protein (6.4-8.2) g/dL Albumin (3.4-5.0) g/dL Globulin (2.3-3.5) g/dL Albumin/Globulin Ratio (1.2-2.2) Urine Osmolality 324 (.) mOsmol/kg 06/15/20 Range/Units 04:30 WBC (4.5-11.0) K/uL RBC (4.30-5.90) M/uL Hgb (12.0-15.0) g/dL Hct (40.0-54.0) % MCV (80-98) fL MCH (27-31) pg MCHC (32-36) % Plt Count (150-400) K/uL Neut % (Auto) (36-66) % Lymph % (Auto) (24-44) % Rankin % (Auto) (2-6) % Eos % (Auto) (2-4) % Baso % (Auto) (0-1) % Sodium 139 L (140-148) mmol/L Potassium 3.3 L (3.6-5.2) mmol/L Chloride 106 (100-108) mmol/L Carbon Dioxide 19 L (21-32) mmol/L Anion Gap 17.3 H (5.0-14.0) mmol/L BUN 68 H (7-18) mg/dL Creatinine 2.6 H (0.8-1.3) mg/dL Est Cr Clr Drug Dosing 24.20 mL/min Estimated GFR (MDRD) 25 L (>60) Glucose 99 (74-106) mg/dL Calcium 7.4 L (8.5-10.1) mg/dL Phosphorus 5.0 H (2.5-4.9) mg/dL Magnesium 4.6 H (1.8-2.4) mg/dL Total Bilirubin 2.4 H (0.2-1.0) mg/dL AST 29 (15-37) U/L ALT 63 (12-78) U/L Alkaline Phosphatase 260 H (46-116) U/L NT-Pro-B Natriuret Pep 39942 H (5-125) pg/mL Total Protein 4.1 L (6.4-8.2) g/dL Albumin 2.0 L (3.4-5.0) g/dL Globulin 2.1 L (2.3-3.5) g/dL Albumin/Globulin Ratio 1.0 L (1.2-2.2) Urine Osmolality (.) mOsmol/kg Adan Results Last 24 Hours: Microbiology 06/12/20 13:57 Gram Stain - Final Gallbladder Wound Culture - Final Pseudomonas Aeruginosa (Vre) Enterococcus Faecium Anaerobic Culture - Preliminary NO GROWTH AFTER 2 DAYS 06/12/20 10:03 Urine Culture - Final Urine, Catheterized NO GROWTH AFTER 2 DAYS Med Orders - Current: Current Medications Bisacodyl (Dulcolax) 10 mg PO BID [facility] Last Admin: 06/15/20 08:40 Dose: 10 mg Documented by: Docusate Sodium (Colace) 100 mg PO BID [facility] Last Admin: 06/15/20 08:40 Dose: 100 mg Documented by: Furosemide (Lasix) 40 mg IVPUSH BID [facility] Hydromorphone HCl (Dilaudid Tap Grinder 15 Mg In Ns 30 Ml) 0 mg IV ASDIRECTED PRN; Pr otocol PRN Reason: [employer] PAIN CONTROL Last Admin: 06/12/20 14:39 Dose: 0.3 mg Documented by: Hydroxyzine HCl (Vistaril) 100 mg IM Q4H PRN PRN Reason: pain Piperacillin/Tazobactam/ (Dextrose 2.25 gm/ Premix) 50 mls @ 100 mls/hr IV Q6H [facility] Last Admin: 06/15/20 08:47 Dose: 100 mls/hr Documented by: Heparin Sodium (Porcine) 5,000 (units/ Sodium Chloride) 501 mls @ 1 mls/hr IV ASDIRECTED [facility] Last Admin: 06/12/20 16:27 Dose: 1 mls/hr Documented by: Heparin Sodium (Porcine) 5,000 (units/ Sodium Chloride) 501 mls @ 1 mls/hr IV ASDIRECTED [facility] Last Admin: 06/12/20 16:28 Dose: 1 mls/hr Documented by: Linezolid 600 mg/ Premix 300 mls @ 300 mls/hr IV Q12H [facility] Last Admin: 06/15/20 02:10 Dose: 300 mls/hr Documented by: Albumin Human (Albumin 25%) 25 gm in 100 mls @ 25 mls/hr IV Q24H [facility] Stop: 06/16/20 13:59 Last Admin: 06/15/20 10:25 Dose: 25 mls/hr Documented by: Dextrose/Lactated Ringer's (Dextrose 5%-Lactated Ringers) 1,000 mls @ 50 mls/hr IV ASDIRECTED [facility] Last Admin: 06/14/20 18:13 Dose: 50 mls/hr Documented by: Lactated Ringer's (Ringers, Lactated) 500 mls @ 1,000 mls/hr IV ASDIRECTED [facility] Last Admin: 06/14/20 02:25 Dose: 1,000 mls/hr Documented by: Albumin Human (Albumin 25%) 25 gm in 100 mls @ 25 mls/hr IV Q24H [facility] Stop: 06/16/20 17:59 Last Admin: 06/14/20 15:56 Dose: 25 mls/hr Documented by: Ciprofloxacin/Dextrose 400 mg/ (Premix) 200 mls @ 200 mls/hr IV Q24H [facility] Potassium Acetate 40 meq/ (Sodium Chloride) 120 mls @ 30 mls/hr IV ONETIME ONE Stop: 06/15/20 12:59 Last Admin: 06/15/20 08:46 Dose: 30 mls/hr Documented by: Multivitamins/Minerals 10 ml/Zinc 1 ml/ Amino Acids/Dextrose 1,011 mls @ 100 mls/hr IV .BY DURATION [facility] Amino Acids/Dextrose (Clinimix 5/15) 1,000 mls @ 100 mls/hr IV .BY DURATION [facility] Naloxone HCl (Narcan) 0.1 mg IV ASDIRECTED PRN PRN Reason: decreased respiratory rate Tamsulosin HCl (Flomax) 0.4 mg PO BEDTIME SUNG Discontinued Medications Bupivacaine HCl (Marcaine 0.5%) Confirm Administered Dose 50 ml .ROUTE .ST-MED ONE Stop: 06/12/20 13:00 Ropivacaine 34 ml/Dexamethasone 8 mg/Epinephrine HCl 0.4 mg/ Sodium Chloride 43.6 ml 0 ml NERVRT ASDIRECTED [facility] Last Admin: 06/12/20 13:30 Dose: 80 syringe Documented by: Dexamethasone (Decadron) Confirm Administered Dose 4 mg .ROUTE .ST-MED ONE Stop: 06/12/20 10:46 Ephedrine Sulfate (Ephedrine Sulfate) Confirm Administered Dose 50 mg .ROUTE .ST-MED ONE Stop: 06/12/20 13:02 Fentanyl (Sublimaze) Confirm Administered Dose 250 mcg .ROUTE .[facility] ONE Stop: 06/12/20 10:48 Furosemide (Lasix) 10 mg IVPUSH ONETIME ONE Stop: 06/13/20 10:01 Last Admin: 06/13/20 09:37 Dose: 10 mg Documented by: Furosemide (Lasix) 20 mg IVPUSH ONETIME ONE Stop: 06/13/20 17:31 Last Admin: 06/13/20 17:54 Dose: 20 mg Documented by: Furosemide (Lasix) 10 mg IVPUSH ONETIME ONE Stop: 06/14/20 04:34 Last Admin: 06/14/20 05:05 Dose: 10 mg Documented by: Furosemide (Lasix) 40 mg IVPUSH ONETIME ONE Stop: 06/14/20 10:01 Last Admin: 06/14/20 11:46 Dose: 40 mg Documented by: Furosemide (Lasix) 40 mg IVPUSH ONETIME ONE Stop: 06/15/20 09:01 Last Admin: 06/15/20 08:40 Dose: 40 mg Documented by: Glycopyrrolate (Robinul) Confirm Administered Dose 1 mg .ROUTE .ST-MED ONE Stop: 06/12/20 10:46 Heparin Sodium (Porcine) (Heparin Lock Flush 100 Units/Ml) Confirm Administered Dose 1,000 units .ROUTE .STK-MED ONE Stop: 06/12/20 10:40 Dextrose/Lactated Ringer's (Dextrose 5%-Lactated Ringers) 1,000 mls @ 200 mls/hr IV ASDIRECTED [facility] Last Admin: 06/12/20 04:15 Dose: 100 mls/hr Documented by: Aztreonam 1 gm/ Sodium (Chloride) 50 mls @ 100 mls/hr IV Q8H [facility] Last Admin: 06/12/20 05:56 Dose: 100 mls/hr Documented by: Lactated Ringer's (Ringers, Lactated) 500 mls @ 500 mls/hr IV BOLUS ONE Stop: 06/12/20 05:54 Last Admin: 06/12/20 04:57 Dose: 500 mls/hr Documented by: Lactated Ringer's (Ringers, Lactated) 1,000 mls @ 750 mls/hr IV ONETIME ONE Stop: 06/12/20 08:03 Last Admin: 06/12/20 07:24 Dose: 750 mls/hr Documented by: Norepinephrine Bitartrate 8 mg (/ Dextrose/Water) 258 mls @ 3.87 mls/hr IV TITRATE [facility]; Protocol Last Infusion: 06/12/20 15:19 Dose: 0 mcg/min, 0 mls/hr Documented by: Dextrose/Water (Dextrose 5% In Water) Confirm Administered Dose 250 mls @ as directed .ROUTE .STK-MED ONE Stop: 06/12/20 06:47 Last Admin: 06/12/20 17:24 Dose: Not Given Documented by: Piperacillin/Tazobactam/ (Dextrose 3.375 gm/ Premix) 50 mls @ 100 mls/hr IV Q6H [facility] Last Admin: 06/12/20 07:36 Dose: 100 mls/hr Documented by: Aztreonam 1 gm/ Sodium (Chloride) 50 mls @ 100 mls/hr IV Q8H [facility] Last Admin: 06/14/20 05:05 Dose: 100 mls/hr Documented by: Sodium Chloride (Normal Saline) Confirm Administered Dose 10 mls @ as directed .ROUTE .STK-MED ONE Stop: 06/12/20 13:03 Dextrose/Ringer's (Dextrose 5%-Ringers) Confirm Administered Dose 1,000 mls @ as directed .ROUTE .STK-MED ONE Stop: 06/12/20 13:52 Dextrose/Lactated Ringer's (Dextrose 5%-Lactated Ringers) 1,000 mls @ 150 mls/hr IV ASDIRECTED [facility] Stop: 06/13/20 11:59 Last Admin: 06/13/20 06:45 Dose: 150 mls/hr Documented by: Multivitamins/Minerals 10 ml/Thiamine HCl 100 mg/ Zinc 1 ml / Dextrose/Lactated Ringer's 1,012 mls @ 150 mls/hr IV ONETIME ONE Stop: 06/12/20 22:44 Last Admin: 06/12/20 16:55 Dose: 150 mls/hr Documented by: Magnesium Sulfate (Magnesium Sulfate In Water 2 Gm/50 Ml) 2 gm in 50 mls @ 25 mls/hr IV Q6HR [facility] Stop: 06/15/20 11:59 Last Admin: 06/15/20 10:22 Dose: 25 mls/hr Documented by: Lactated Ringer's (Ringers, Lactated) 500 mls @ 500 mls/hr IV ONETIME ONE Stop: 06/13/20 06:59 Last Admin: 06/13/20 06:00 Dose: 500 mls/hr Documented by: Multivitamins/Minerals 10 ml/Zinc 1 ml/ Amino Acids/Dextrose 1,011 mls @ 100 mls/hr IV .BY DURATION [facility] Last Admin: 06/15/20 10:12 Dose: 100 mls/hr Documented by: Amino Acids/Dextrose (Clinimix 5/15) 1,000 mls @ 100 mls/hr IV .BY DURATION [facility] Last Admin: 06/14/20 21:35 Dose: 100 mls/hr Documented by: Calcium Gluconate 2 gm/ Sodium (Chloride) 120 mls @ 100 mls/hr IV ONETIME ONE Stop: 06/13/20 12:11 Last Admin: 06/13/20 12:30 Dose: 100 mls/hr Documented by: Calcium Gluconate 2 gm/ Sodium (Chloride) 120 mls @ 100 mls/hr IV ONETIME ONE Stop: 06/13/20 19:01 Last Admin: 06/13/20 18:05 Dose: 100 mls/hr Documented by: Ciprofloxacin/Dextrose 400 mg/ (Premix) 200 mls @ 200 mls/hr IV Q12H [facility] Stop: 06/14/20 18:00 Last Admin: 06/14/20 15:58 Dose: 200 mls/hr Documented by: Lidocaine/Epinephrine (Xylocaine 1% With Epinephrine 1:100,000) Confirm Administered Dose 50 ml .ROUTE .STK-MED ONE Stop: 06/12/20 13:00 Meropenem (Merrem) Confirm Administered Dose 500 mg .ROUTE .STK-MED ONE Stop: 06/12/20 13:03 Neostigmine Methylsulfate (Neostigmine) Confirm Administered Dose 5 mg .ROUTE .STK-MED ONE Stop: 06/12/20 10:46 Norepinephrine Bitartrate (Levophed) Confirm Administered Dose 8 mg .ROUTE .STK- MED ONE Stop: 06/12/20 06:46 Last Admin: 06/12/20 17:46 Dose: Not Given Documented by: Ondansetron HCl (Zofran) Confirm Administered Dose 4 mg .ROUTE .STK-MED ONE Stop: 06/12/20 10:46 Propofol (Diprivan 20 Ml) Confirm Administered Dose 200 mg .ROUTE .STK-MED ONE Stop: 06/12/20 10:46 Rocuronium [place] (Zemuron) Confirm Administered Dose 50 mg .ROUTE .STK-MED ONE Stop: 06/12/20 10:46 Sodium Polystyrene Sulfonate (Kayexalate) 30 gm PO ONETIME ONE Stop: 06/13/20 08:46 Last Admin: 06/13/20 08:55 Dose: 30 gm Documented by: Succinylcholine Chloride (Quelicin) Confirm Administered Dose 200 mg .ROUTE .STK-MED ONE Stop: 06/12/20 10:46 Tamsulosin HCl (Flomax) 0.4 mg PO NOW ONE Stop: 06/15/20 07:31 Last Admin: 06/15/20 08:40 Dose: 0.4 mg Documented by: - Exam Quality Assessment: Supplemental Oxygen General: Alert, Oriented, Cooperative, No Acute Distress HEENT: Pupils Equal, EOMI Lungs: Crackles, Rales Cardiovascular: Regular Rate, Regular Rhythm Sepsis Event Note - Evaluation Sepsis Screening Result: No Definite Risk - Focused Exam Vital Signs: Vital Signs Temp Resp BP Pulse Ox 06/15/20 06:00 16 165/87 H 97 06/15/20 05:00 13 159/88 H 95 06/15/20 04:00 95.8 F L 24 H 157/88 H 99 06/15/20 02:00 96.6 F L 13 146/82 H 96 06/15/20 01:00 19 159/86 H 95 - Problem List Review Problem List Initiated/Reviewed/Updated: Yes - My Orders Last 24 Hours: My Active Orders 06/15/20 21:00 Furosemide [Lasix] 40 mg IVPUSH BID 06/16/20 04:00 CBC WITH AUTO DIFF [HEME] DAILY COMPREHENSIVE METABOLIC PN,CMP [CHEM] DAILY 06/17/20 04:00 CBC WITH AUTO DIFF [HEME] DAILY COMPREHENSIVE METABOLIC PN,CMP [CHEM] DAILY - Assessment Assessment:: HEENT: - No issues Cardiovascular - Patient is somewhat fluid overloaded due to the fluid resuscitation needed to manage his initial presentation of septic shock in the wake of cholecystectomy - Continue MIVF for now - Caution with bolus fluids - Patient is markedly edematous in the periphery - Starting to improve - Start Lasix 40 mg IV bid Pulmonary - Stable, no signs of pulmonary edema - Continue plan of care as we are Renal/Electrolytes - Lytes normalizing - Potassium and Creatinine are normalizing or stabilized - Will give some lasix today as above for peripheral edema - Patient getting 50 mg IV albumin today in addition to diuresis Gastrointestinal - Patient s/p cholecystectomy - Defer post-operative management to Gen Surg ID - Pseudomonas noted in gall bladder path report - Pansensitive and is on triple coverage including zosyn - Will defer to surgery but recommend consideration of narrowing coverage to zosyn Neuro/Musculoskeletal - No issues - PT to follow if appropriate Psych - appropriate mentation
[2020-06-15] MEDS: Dextrose 5%-Lactated Ringers 1,000 ML IV SCH (14:48)
[2020-06-15] MEDS: Ciprofloxacin in D5W 400 MG in Premix Bag 1 BAG IV SCH ×2 (15:59)
[2020-06-15] MEDS: 1: AA 5%/Calcium/D15W/Lytes 2,000 ML with MVI, Adult with Vitamin K 10 ML, Zinc/Copper/M IV SCH ×3 (20:46)
[2020-06-15] MEDS: Tamsulosin 0.4 MG Cap.ER PO SCH (20:52)
[2020-06-15] MEDS ORDERED: Furosemide 40 MG/4 ML VIAL IVPUSH SCH (21:00)
[2020-06-15] MEDS ORDERED: 1: Amino Acids 5%/Dextrose 15% 1,000 ML with MVI, Adult with Vitamin K 10 ML, Zinc/Copp IV SCH ×3 (21:15)
[2020-06-15] MEDS ORDERED: 1: AA 5%/Calcium/D15W/Lytes 1,000 ML with MVI, Adult with Vitamin K 10 ML, Zinc/Copper/M IV SCH ×3 (21:15)
[2020-06-16] MEDS ORDERED: diphenhydrAMINE 25 MG Cap PO PRN (00:04)
[2020-06-16] MEDS: diphenhydrAMINE 50 MG/ML SDV IVPUSH PRN (00:21)
[2020-06-16] MEDS: Piperacillin/Tazobactam/Dext 2.25 GM in Premix Bag 1 BAG IV SCH ×4 (02:55→19:09)
[2020-06-16] MEDS: HYDROmorphone/Normal Saline 15 MG/30 ML PCA IV PRN (03:06)
[2020-06-16] MEDS ORDERED: Furosemide 40 MG/4 ML VIAL IVPUSH ONE (03:32)
[2020-06-16] MEDS: Linezolid 600 MG in Premix Bag 1 BAG IV SCH ×2 (03:40→15:39)
[2020-06-16] MEDS: Atropine/Diphenoxylate 0.025-2.5 MG Tab PO PRN ×2 (05:25→12:55)
[2020-06-16] MEDS: Furosemide 40 MG/4 ML VIAL IVPUSH SCH ×2 (08:02→15:42)
[2020-06-16] MEDS: Lactated Ringers 1,000 ML IV SCH (09:50)
[2020-06-16] MEDS: Sertraline 25 MG Tab PO SCH (09:53)
[2020-06-16] MEDS: Megestrol Susp 40 MG/ML ML (240 ML Bottle) PO SCH ×3 (09:54→20:39)
[2020-06-16] MEDS: Acetaminophen 500 MG Tab PO SCH ×3 (09:55→22:00)
--- NOTE | 2020-06-16 11:23 | PCM.PN ---
- General Info Date of Service: 06/16/20 Subjective Update: Patient admitted on 06/12/2020 in septic shock and with rhabdomyolysis. 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 Was found to have a septic gallbladder and was taken to OR for cholecystectomy. Was fluid resuscitated and stabilized with levophed shortly after transfer from the ED at [facility]. Had mild acute on chronic renal failure, but creatinine has stabilized around 2.4-2.6 which is his baseline. He was up fluid from the resuscitative effort and was significantly edematous in the periphery Was given albumin per Dr. Viveros. Started diuresis on the patient 2 days ago due to marked edema and some pulmonary edema. Paitent is down 2100 mL as of 06/16 and is stable with respect to his creatinine though admittedly his BUN has been climbing over the past 2-3 days. He is starting to get anxious to leave and is tolerating PO well - hoping to D/C the TPN today and begin working towards D/C Patient is on appropriate atbx Functional Status: Reports: Pain Controlled, Tolerating Diet - Review of Systems General: Reports: No Symptoms HEENT: Reports: No Symptoms Pulmonary: Reports: No Symptoms Cardiovascular: Reports: No Symptoms Gastrointestinal: Reports: No Symptoms Psychiatric: Reports: Other (Starting to get chippy and wants to leave) - Patient Data Vitals - Most Recent: Last Vital Signs Temp 96.0 F L 06/16/20 04:00 Pulse 70 06/16/20 05:55 Resp 12 06/16/20 05:55 BP 152/84 H 06/16/20 05:55 Pulse Ox 98 06/16/20 05:55 Weight - Most Recent: 177 lb 7.554 oz I&O - Last 24 Hours: Intake & Output 06/15/20 06/16/20 06/16/20 22:59 06:59 14:59 Intake Total 4589 2321 Output Total 2204 1690 1820 Balance 2388 631 -1820 Lab Results Last 24 Hours: Laboratory Results - last 24 hr 06/12/20 06/16/20 06/16/20 Range/Units 07:18 04:20 04:20 WBC 12.6 H (4.5-11.0) K/uL RBC 3.36 L (4.30-5.90) M/uL Hgb 9.9 L (12.0-15.0) g/dL Hct 28.4 L (40.0-54.0) % MCV 85 (80-98) fL MCH 30 (27-31) pg MCHC 35 (32-36) % Plt Count 92 L (150-400) K/uL Neut % (Auto) 84 H (36-66) % Lymph % (Auto) 6 L (24-44) % [place] % (Auto) 8 H (2-6) % Eos % (Auto) 2 (2-4) % Baso % (Auto) 0 (0-1) % Sodium 139 L (140-148) mmol/L Potassium 3.5 L (3.6-5.2) mmol/L Chloride 102 (100-108) mmol/L Carbon Dioxide 24 (21-32) mmol/L Anion Gap 16.5 H (5.0-14.0) mmol/L BUN 78 H* (7-18) mg/dL Creatinine 2.5 H (0.8-1.3) mg/dL Est Cr Clr Drug Dosing 25.17 mL/min Estimated GFR (MDRD) 26 L (>60) Glucose 138 H (74-106) mg/dL Calcium 7.4 L (8.5-10.1) mg/dL Phosphorus 4.1 (2.5-4.9) mg/dL Total Bilirubin 3.2 H (0.2-1.0) mg/dL AST 25 (15-37) U/L ALT 46 (12-78) U/L Alkaline Phosphatase 292 H (46-116) U/L NT-Pro-B Natriuret Pep 28615 H (5-125) pg/mL Total Protein 4.2 L (6.4-8.2) g/dL Albumin 2.2 L (3.4-5.0) g/dL Globulin 2.0 L (2.3-3.5) g/dL Albumin/Globulin Ratio 1.1 L (1.2-2.2) Crossmatch See Detail Adan Results Last 24 Hours: Microbiology 06/16/20 02:51 Clostridioides difficile (PCR) - Final Stool / Feces 06/12/20 13:57 Gram Stain - Final Gallbladder Wound Culture - Final Pseudomonas Aeruginosa (Vre) Enterococcus Faecium Anaerobic Culture - Preliminary NO GROWTH AFTER 2 DAYS Med Orders - Current: Current Medications Acetaminophen (Tylenol Extra Strength) 1,000 mg PO Q6HR [facility] Last Admin: 06/16/20 09:55 Dose: 1,000 mg Documented by: Diphenhydramine HCl (Benadryl) 50 mg IVPUSH BEDTIME PRN PRN Reason: Insomnia Last Admin: 06/16/20 00:21 Dose: 50 mg Documented by: Diphenhydramine HCl (Benadryl) 50 mg PO BEDTIME PRN PRN Reason: Insomnia Diphenoxylate HCl/Atropine (Lomotil 0.025-2.5 Mg) 1 tab PO Q6H PRN PRN Reason: Diarrhea Furosemide (Lasix) 40 mg IVPUSH BID@0800,1600 [facility] Last Admin: 06/16/20 08:02 Dose: 40 mg Documented by: Hydroxyzine HCl (Vistaril) 100 mg IM Q4H PRN PRN Reason: pain Piperacillin/Tazobactam/ (Dextrose 2.25 gm/ Premix) 50 mls @ 100 mls/hr IV Q6H [facility] Last Admin: 06/16/20 08:02 Dose: 100 mls/hr Documented by: Linezolid 600 mg/ Premix 300 mls @ 300 mls/hr IV Q12H [facility] Last Admin: 06/16/20 03:40 Dose: 300 mls/hr Documented by: Albumin Human (Albumin 25%) 25 gm in 100 mls @ 25 mls/hr IV Q24H [facility] Stop: 06/16/20 13:59 Last Admin: 06/16/20 09:54 Dose: 25 mls/hr Documented by: Albumin Human (Albumin 25%) 25 gm in 100 mls @ 25 mls/hr IV Q24H [facility] Stop: 06/16/20 17:59 Last Admin: 06/15/20 14:56 Dose: 25 mls/hr Documented by: Ciprofloxacin/Dextrose 400 mg/ (Premix) 200 mls @ 200 mls/hr IV Q24H [facility] Last Admin: 06/15/20 15:59 Dose: 200 mls/hr Documented by: Multivitamins/Minerals 10 ml/Zinc 1 ml/ Amino Ac/Electrol/Dextrose/Calcium 2,011 mls @ 100 mls/hr IV .BY DURATION [facility] Last Admin: 06/15/20 20:46 Dose: 100 mls/hr Documented by: Amino Ac/Electrol/Dextrose/Calcium (Clinimix E 15) 2,000 mls @ 100 mls/hr IV .BY DURATION [facility] Lactated Ringer's (Ringers, Lactated) 1,000 mls @ 0 mls/hr IV ASDIRECTED [facility] Last Admin: 06/16/20 09:50 Dose: 25 mls/hr Documented by: Megestrol Acetate (Megace 40 Mg/Ml Susp) 200 mg PO BID [facility] Last Admin: 06/16/20 09:54 Dose: 200 mg Documented by: Oxycodone HCl (Oxycodone) 5 mg PO Q4H PRN PRN Reason: Pain Sertraline HCl (Zoloft) 75 mg PO DAILY [facility] Last Admin: 06/16/20 09:53 Dose: 75 mg Documented by: Tamsulosin HCl (Flomax) 0.4 mg PO BEDTIME [facility] Last Admin: 06/15/20 20:52 Dose: 0.4 mg Documented by: Discontinued Medications Bisacodyl (Dulcolax) 10 mg PO BID [facility] Last Admin: 06/15/20 20:51 Dose: 10 mg Documented by: Bupivacaine HCl (Marcaine 0.5%) Confirm Administered Dose 50 ml .ROUTE .STK-MED ONE Stop: 06/12/20 13:00 Ropivacaine 34 ml/Dexamethasone 8 mg/Epinephrine HCl 0.4 mg/ Sodium Chloride 43.6 ml 0 ml NERVRT ASDIRECTED [facility] Last Admin: 06/12/20 13:30 Dose: 80 syringe Documented by: Dexamethasone (Decadron) Confirm Administered Dose 4 mg .ROUTE .STK-MED ONE Stop: 06/12/20 10:46 Docusate Sodium (Colace) 100 mg PO BID [facility] Last Admin: 06/15/20 20:51 Dose: Not Given Documented by: Ephedrine Sulfate (Ephedrine Sulfate) Confirm Administered Dose 50 mg .ROUTE .STK-MED ONE Stop: 06/12/20 13:02 Fentanyl (Sublimaze) Confirm Administered Dose 250 mcg .ROUTE .STK-MED ONE Stop: 06/12/20 10:48 Furosemide (Lasix) 10 mg IVPUSH ONETIME ONE Stop: 06/13/20 10:01 Last Admin: 06/13/20 09:37 Dose: 10 mg Documented by: Furosemide (Lasix) 20 mg IVPUSH ONETIME ONE Stop: 06/13/20 17:31 Last Admin: 06/13/20 17:54 Dose: 20 mg Documented by: Furosemide (Lasix) 10 mg IVPUSH ONETIME ONE Stop: 06/14/20 04:34 Last Admin: 06/14/20 05:05 Dose: 10 mg Documented by: Furosemide (Lasix) 40 mg IVPUSH ONETIME ONE Stop: 06/14/20 10:01 Last Admin: 06/14/20 11:46 Dose: 40 mg Documented by: Furosemide (Lasix) 40 mg IVPUSH ONETIME ONE Stop: 06/15/20 09:01 Last Admin: 06/15/20 08:40 Dose: 40 mg Documented by: Furosemide (Lasix) 40 mg IVPUSH BID [facility] Last Admin: 06/15/20 20:52 Dose: 40 mg Documented by: Furosemide (Lasix) 40 mg IVPUSH ONETIME ONE Stop: 06/16/20 03:33 Last Admin: 06/16/20 03:41 Dose: 40 mg Documented by: Glycopyrrolate (Robinul) Confirm Administered Dose 1 mg .ROUTE .STK-MED ONE Stop: 06/12/20 10:46 Heparin Sodium (Porcine) (Heparin Lock Flush 100 Units/Ml) Confirm Administered Dose 1,000 units .ROUTE .STK-MED ONE Stop: 06/12/20 10:40 Hydromorphone HCl (Dilaudid Equipment Operat0R 15 Mg In Ns 30 Ml) 0 mg IV ASDIRECTED PRN; Protocol 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 Last Admin: 06/16/20 03:06 Dose: 15 mg Documented by: Dextrose/Lactated Ringer's (Dextrose 5%-Lactated Ringers) 1,000 mls @ 200 mls/hr IV ASDIRECTED [facility] Last Admin: 06/12/20 04:15 Dose: 100 mls/hr Documented by: Aztreonam 1 gm/ Sodium (Chloride) 50 mls @ 100 mls/hr IV Q8H [facility] Last Admin: 06/12/20 05:56 Dose: 100 mls/hr Documented by: Lactated Ringer's (Ringers, Lactated) 500 mls @ 500 mls/hr IV BOLUS ONE Stop: 06/12/20 05:54 Last Admin: 06/12/20 04:57 Dose: 500 mls/hr Documented by: Lactated Ringer's (Ringers, Lactated) 1,000 mls @ 750 mls/hr IV ONETIME ONE Stop: 06/12/20 08:03 Last Admin: 06/12/20 07:24 Dose: 750 mls/hr Documented by: Norepinephrine Bitartrate 8 mg (/ Dextrose/Water) 258 mls @ 3.87 mls/hr IV TITRATE [facility]; Protocol Last Infusion: 06/12/20 15:19 Dose: 0 mcg/min, 0 mls/hr Documented by: Dextrose/Water (Dextrose 5% In Water) Confirm Administered Dose 250 mls @ as directed .ROUTE .[facility] ONE Stop: 06/12/20 06:47 Last Admin: 06/12/20 17:24 Dose: Not Given Documented by: Piperacillin/Tazobactam/ (Dextrose 3.375 gm/ Premix) 50 mls @ 100 mls/hr IV Q6H [facility] Last Admin: 06/12/20 07:36 Dose: 100 mls/hr Documented by: Aztreonam 1 gm/ Sodium (Chloride) 50 mls @ 100 mls/hr IV Q8H [facility] Last Admin: 06/14/20 05:05 Dose: 100 mls/hr Documented by: Sodium Chloride (Normal Saline) Confirm Administered Dose 10 mls @ as directed .ROUTE .[facility] ONE Stop: 06/12/20 13:03 Heparin Sodium (Porcine) 5,000 (units/ Sodium Chloride) 501 mls @ 1 mls/hr IV ASDIRECTED [facility] Last Admin: 06/12/20 16:27 Dose: 1 mls/hr Documented by: Heparin Sodium (Porcine) 5,000 (units/ Sodium Chloride) 501 mls @ 1 mls/hr IV ASDIRECTED [facility] Last Admin: 06/12/20 16:28 Dose: 1 mls/hr Documented by: Dextrose/Ringer's (Dextrose 5%-Ringers) Confirm Administered Dose 1,000 mls @ as directed .ROUTE .[facility] Stop: 06/12/20 13:52 Dextrose/Lactated Ringer's (Dextrose 5%-Lactated Ringers) 1,000 mls @ 150 mls/hr IV ASDIRECTED [facility] Stop: 06/13/20 11:59 Last Admin: 06/13/20 06:45 Dose: 150 mls/hr Documented by: Multivitamins/Minerals 10 ml/Thiamine HCl 100 mg/ Zinc 1 ml / Dextrose/Lactated Ringer's 1,012 mls @ 150 mls/hr IV ONETIME ONE Stop: 06/12/20 22:44 Last Admin: 06/12/20 16:55 Dose: 150 mls/hr Documented by: Magnesium Sulfate (Magnesium Sulfate In Water 2 Gm/50 Ml) 2 gm in 50 mls @ 25 mls/hr IV Q6HR [facility] Stop: 06/15/20 11:59 Last Admin: 06/15/20 10:22 Dose: 25 mls/hr Documented by: Lactated Ringer's (Ringers, Lactated) 500 mls @ 500 mls/hr IV ONETIME ONE Stop: 06/13/20 06:59 Last Admin: 06/13/20 06:00 Dose: 500 mls/hr Documented by: Multivitamins/Minerals 10 ml/Zinc 1 ml/ Amino Acids/Dextrose 1,011 mls @ 100 mls/hr IV .BY DURATION [facility] Last Admin: 06/15/20 10:12 Dose: 100 mls/hr Documented by: Amino Acids/Dextrose (Clinimix 5/15) 1,000 mls @ 100 mls/hr IV .BY DURATION [facility] Last Admin: 06/14/20 21:35 Dose: 100 mls/hr Documented by: Dextrose/Lactated Ringer's (Dextrose 5%-Lactated Ringers) 1,000 mls @ 50 mls/hr IV ASDIRECTED [facility] Last Admin: 06/15/20 14:48 Dose: 50 mls/hr Documented by: Calcium Gluconate 2 gm/ Sodium (Chloride) 120 mls @ 100 mls/hr IV ONETIME ONE Stop: 06/13/20 12:11 Last Admin: 06/13/20 12:30 Dose: 100 mls/hr Documented by: Calcium Gluconate 2 gm/ Sodium (Chloride) 120 mls @ 100 mls/hr IV ONETIME ONE Stop: 06/13/20 19:01 Last Admin: 06/13/20 18:05 Dose: 100 mls/hr Documented by: Lactated Ringer's (Ringers, Lactated) 500 mls @ 1,000 mls/hr IV ASDIRECTED [facility] Last Admin: 06/14/20 02:25 Dose: 1,000 mls/hr Documented by: Ciprofloxacin/Dextrose 400 mg/ (Premix) 200 mls @ 200 mls/hr IV Q12H [facility] Stop: 06/14/20 18:00 Last Admin: 06/14/20 15:58 Dose: 200 mls/hr Documented by: Potassium Acetate 40 meq/ (Sodium Chloride) 120 mls @ 30 mls/hr IV ONETIME ONE Stop: 06/15/20 12:59 Last Admin: 06/15/20 08:46 Dose: 30 mls/hr Documented by: Multivitamins/Minerals 10 ml/Zinc 1 ml/ Amino Acids/Dextrose 1,011 mls @ 100 mls/hr IV .BY DURATION [facility] Amino Acids/Dextrose (Clinimix 5/15) 1,000 mls @ 100 mls/hr IV .BY DURATION [facility] Lidocaine/Epinephrine (Xylocaine 1% With Epinephrine 1:100,000) Confirm Administered Dose 50 ml .ROUTE .STK-MED ONE Stop: 06/12/20 13:00 Meropenem (Merrem) Confirm Administered Dose 500 mg .ROUTE .STK-MED ONE Stop: 06/12/20 13:03 Naloxone HCl (Narcan) 0.1 mg IV ASDIRECTED PRN PRN Reason: decreased respiratory rate Neostigmine Methylsulfate (Neostigmine) Confirm Administered Dose 5 mg .ROUTE .STK-MED ONE Stop: 06/12/20 10:46 Norepinephrine Bitartrate (Levophed) Confirm Administered Dose 8 mg .ROUTE .STK- MED ONE Stop: 06/12/20 06:46 Last Admin: 06/12/20 17:46 Dose: Not Given Documented by: Ondansetron HCl (Zofran) Confirm Administered Dose 4 mg .ROUTE .STK-MED ONE Stop: 06/12/20 10:46 Propofol (Diprivan 20 Ml) Confirm Administered Dose 200 mg .ROUTE .STK-MED ONE Stop: 06/12/20 10:46 Rocuronium [place] (Zemuron) Confirm Administered Dose 50 mg .ROUTE .STK-MED ONE Stop: 06/12/20 10:46 Sodium Polystyrene Sulfonate (Kayexalate) 30 gm PO ONETIME ONE Stop: 06/13/20 08:46 Last Admin: 06/13/20 08:55 Dose: 30 gm Documented by: Succinylcholine Chloride (Quelicin) Confirm Administered Dose 200 mg .ROUTE .STK-MED ONE Stop: 06/12/20 10:46 Tamsulosin HCl (Flomax) 0.4 mg PO NOW ONE Stop: 06/15/20 07:31 Last Admin: 06/15/20 08:40 Dose: 0.4 mg Documented by: - Exam Quality Assessment: DVT Prophylaxis General: Alert, Oriented, Cooperative, No Acute Distress HEENT: Pupils Equal, EOMI Lungs: Clear to Auscultation, Normal Respiratory Effort Cardiovascular: Regular Rate, Regular Rhythm Extremities: Pedal Edema (Markedly improved) Skin: Warm, Dry, Intact Neurological: No New Focal Deficit Psy/Mental Status: Alert, Normal Affect, Normal Mood Sepsis Event Note - Evaluation Sepsis Screening Result: No Definite Risk - Focused Exam Vital Signs: Vital Signs Temp Pulse Resp BP Pulse Ox 06/16/20 05:55 70 12 152/84 H 98 06/16/20 05:00 69 12 165/91 H 97 06/16/20 04:00 96.0 F L 71 12 179/88 H 99 06/16/20 03:00 69 13 185/93 H 98 06/16/20 02:00 73 12 190/98 H 98 06/16/20 01:00 72 20 181/89 H 97 06/16/20 00:00 96.3 F L 76 12 179/90 H 97 - Problem List Review Problem List Initiated/Reviewed/Updated: Yes - My Orders Last 24 Hours: My Active Orders 06/16/20 08:00 Furosemide [Lasix] 40 mg IVPUSH BID@0800,1600 06/17/20 04:00 CBC WITH AUTO DIFF [HEME] DAILY COMPREHENSIVE METABOLIC PN,CMP [CHEM] DAILY - Assessment Assessment:: HEENT: - No issues Cardiovascular - Patient is somewhat fluid overloaded due to the fluid resuscitation needed to manage his initial presentation of septic shock in the wake of cholecystectomy - Continue MIVF for now - Caution with bolus fluids - Patient is markedly edematous in the periphery - Starting to improve - Start Lasix 40 mg IV bid Pulmonary - Stable, no signs of pulmonary edema - Continue plan of care as we are Renal/Electrolytes - Lytes normalizing - Potassium and Creatinine are normalizing or stabilized - Will give some lasix today as above for peripheral edema - Patient getting 50 mg IV albumin today in addition to diuresis - Patient is tolerating PO appropriate and I wonder if we can start to wean, back off TPN Gastrointestinal - Patient s/p cholecystectomy - Defer post-operative management to Gen Surg - Patient is anxious to leave ID - Pseudomonas noted in gall bladder path report - Pansensitive and is on triple coverage including zosyn - Will defer to surgery but recommend consideration of narrowing coverage to zosyn Neuro/Musculoskeletal - No issues - PT to follow if appropriate Psych - appropriate mentation
[2020-06-16] MEDS: Ciprofloxacin in D5W 400 MG in Premix Bag 1 BAG IV SCH ×2 (16:45)
[2020-06-16] MEDS: 1: AA 5%/Calcium/D15W/Lytes 2,000 ML with MVI, Adult with Vitamin K 10 ML, Zinc/Copper/M IV SCH ×3 (16:48)
[2020-06-16] MEDS: Lactobacillus Rhamnosus GG (Probiotic) Cap PO SCH ×3 (16:49→20:39)
[2020-06-16] MEDS: Tamsulosin 0.4 MG Cap.ER PO SCH ×2 (19:14→20:40)
[2020-06-17] MEDS: Piperacillin/Tazobactam/Dext 2.25 GM in Premix Bag 1 BAG IV SCH ×4 (02:14→19:23)
[2020-06-17] MEDS: Linezolid 600 MG in Premix Bag 1 BAG IV SCH ×2 (02:14→14:52)
[2020-06-17] MEDS: Acetaminophen 500 MG Tab PO SCH ×4 (03:07→21:27)
[2020-06-17] MEDS: Lactobacillus Rhamnosus GG (Probiotic) Cap PO SCH ×3 (08:43→20:25)
[2020-06-17] MEDS: Sertraline 25 MG Tab PO SCH (08:44)
[2020-06-17] MEDS: Furosemide 20 MG/2 ML VIAL IVPUSH SCH ×2 (08:45→17:49)
[2020-06-17] MEDS: Megestrol Susp 40 MG/ML ML (240 ML Bottle) PO SCH ×3 (08:45→20:25)
[2020-06-17] MEDS ORDERED: Potassium Chloride 20 MEQ Tab.ER PO ONE (09:00)
--- NOTE | 2020-06-17 11:20 | PCM.PN ---
- General Info Date of Service: 06/17/20 Subjective Update: No acute events overnight though the patient has had difficulty with persistent epistaxis. This seems to be mostly from the right side. It did initially get better with some pressure and ice but is bleeding slowly but steadily again today. He reports that his abdominal pain is well controlled. He is able to get out of bed and get to the bathroom and back with only a standby assist. No fevers. Steadily feeling better. No complaints of shortness of breath. Functional Status: Reports: Pain Controlled, Tolerating Diet - Review of Systems General: Denies: Fever HEENT: Reports: Other (epistaxis ) - Patient Data Vitals - Most Recent: Last Vital Signs Temp 36.1 C 06/17/20 11:15 Pulse 61 06/17/20 11:15 Resp 18 06/17/20 11:15 BP 168/76 H 06/17/20 11:15 Pulse Ox 96 06/17/20 07:00 Weight - Most Recent: 80.5 kg I&O - Last 24 Hours: Intake & Output 06/16/20 06/17/20 06/17/20 22:59 06:59 14:59 Intake Total 3404 2457 0 Output Total 3010 2460 90 Balance 394 -3 -90 Lab Results Last 24 Hours: Laboratory Results - last 24 hr 06/12/20 06/17/20 06/17/20 Range/Units 07:18 04:50 04:50 WBC 7.2 (4.5-11.0) K/uL RBC 2.92 L (4.30-5.90) M/uL Hgb 8.6 L (12.0-15.0) g/dL Hct 24.7 L (40.0-54.0) % MCV 85 (80-98) fL MCH 30 (27-31) pg MCHC 35 (32-36) % Plt Count 73 L (150-400) K/uL Neut % (Auto) 69 H (36-66) % Lymph % (Auto) 14 L (24-44) % Cooke % (Auto) 13 H (2-6) % Eos % (Auto) 4 (2-4) % Baso % (Auto) 0 (0-1) % Sodium 139 L (140-148) mmol/L Potassium 3.6 (3.6-5.2) mmol/L Chloride 102 (100-108) mmol/L Carbon Dioxide 27 (21-32) mmol/L Anion Gap 13.6 (5.0-14.0) mmol/L BUN 85 H* (7-18) mg/dL Creatinine 2.5 H (0.8-1.3) mg/dL Est Cr Clr Drug Dosing 25.17 mL/min Estimated GFR (MDRD) 26 L (>60) Glucose 94 (74-106) mg/dL Calcium 7.6 L (8.5-10.1) mg/dL Phosphorus 4.6 (2.5-4.9) mg/dL Magnesium 4.0 H (1.8-2.4) mg/dL Total Bilirubin 3.3 H (0.2-1.0) mg/dL AST 28 (15-37) U/L ALT 38 (12-78) U/L Alkaline Phosphatase 349 H (46-116) U/L NT-Pro-B Natriuret Pep 34236 H (5-125) pg/mL Total Protein 4.0 L (6.4-8.2) g/dL Albumin 2.2 L (3.4-5.0) g/dL Globulin 1.8 L (2.3-3.5) g/dL Albumin/Globulin Ratio 1.2 (1.2-2.2) Blood Type Gel Antibody Screen Crossmatch See Detail 06/17/20 Range/Units 08:10 WBC (4.5-11.0) K/uL RBC (4.30-5.90) M/uL Hgb (12.0-15.0) g/dL Hct (40.0-54.0) % MCV (80-98) fL MCH (27-31) pg MCHC (32-36) % Plt Count (150-400) K/uL Neut % (Auto) (36-66) % Lymph % (Auto) (24-44) % Cooke % (Auto) (2-6) % Eos % (Auto) (2-4) % Baso % (Auto) (0-1) % Sodium (140-148) mmol/L Potassium (3.6-5.2) mmol/L Chloride (100-108) mmol/L Carbon Dioxide (21-32) mmol/L Anion Gap (5.0-14.0) mmol/L BUN (7-18) mg/dL Creatinine (0.8-1.3) mg/dL Est Cr Clr Drug Dosing mL/min Estimated GFR (MDRD) (>60) Glucose (74-106) mg/dL Calcium (8.5-10.1) mg/dL Phosphorus (2.5-4.9) mg/dL Magnesium (1.8-2.4) mg/dL Total Bilirubin (0.2-1.0) mg/dL AST (15-37) U/L ALT (12-78) U/L Alkaline Phosphatase (46-116) U/L NT-Pro-B Natriuret Pep (5-125) pg/mL Total Protein (6.4-8.2) g/dL Albumin (3.4-5.0) g/dL Globulin (2.3-3.5) g/dL Albumin/Globulin Ratio (1.2-2.2) Blood Type A POSITIVE Gel Antibody Screen Negative Crossmatch See Detail Adan Results Last 24 Hours: Microbiology 06/16/20 02:51 Clostridioides difficile (PCR) - Final Stool / Feces Med Orders - Current: Current Medications Acetaminophen (Tylenol Extra Strength) 1,000 mg PO Q6HR [facility] Last Admin: 06/17/20 03:07 Dose: Not Given Documented by: Diphenhydramine HCl (Benadryl) 50 mg IVPUSH BEDTIME PRN PRN Reason: Insomnia Last Admin: 06/16/20 00:21 Dose: 50 mg Documented by: Diphenhydramine HCl (Benadryl) 50 mg PO BEDTIME PRN PRN Reason: Insomnia Diphenoxylate HCl/Atropine (Lomotil 0.025-2.5 Mg) 1 tab PO Q6H PRN PRN Reason: Diarrhea Last Admin: 06/16/20 12:55 Dose: 1 tab Documented by: Furosemide (Lasix) 20 mg IVPUSH Q9H [facility] Stop: 06/17/20 18:01 Last Admin: 06/17/20 08:45 Dose: 20 mg Documented by: Hydroxyzine HCl (Vistaril) 100 mg IM Q4H PRN PRN Reason: pain Piperacillin/Tazobactam/ (Dextrose 2.25 gm/ Premix) 50 mls @ 100 mls/hr IV Q6H [facility] Last Admin: 06/17/20 08:21 Dose: 100 mls/hr Documented by: Linezolid 600 mg/ Premix 300 mls @ 300 mls/hr IV Q12H [facility] Last Admin: 06/17/20 02:14 Dose: 300 mls/hr Documented by: Ciprofloxacin/Dextrose 400 mg/ (Premix) 200 mls @ 200 mls/hr IV Q24H [facility] Last Admin: 06/16/20 16:45 Dose: 200 mls/hr Documented by: Lactated Ringer's (Ringers, Lactated) 1,000 mls @ 0 mls/hr IV ASDIRECTED [facility] Last Admin: 06/16/20 09:50 Dose: 25 mls/hr Documented by: Lactobacillus Rhamnosus (Culturelle) 1 cap PO BID [facility] Last Admin: 06/17/20 08:43 Dose: 1 cap Documented by: Megestrol Acetate (Megace 40 Mg/Ml Susp) 200 mg PO BID [facility] Last Admin: 06/17/20 08:45 Dose: 200 mg Documented by: Oxycodone HCl (Oxycodone) 5 mg PO Q4H PRN PRN Reason: Pain Sertraline HCl (Zoloft) 75 mg PO DAILY [facility] Last Admin: 06/17/20 08:44 Dose: 75 mg Documented by: Tamsulosin HCl (Flomax) 0.4 mg PO BEDTIME [facility] Last Admin: 06/16/20 20:40 Dose: Not Given Documented by: Discontinued Medications Bisacodyl (Dulcolax) 10 mg PO BID [facility] Last Admin: 06/15/20 20:51 Dose: 10 mg Documented by: Bupivacaine HCl (Marcaine 0.5%) Confirm Administered Dose 50 ml .ROUTE .STK-MED ONE Stop: 06/12/20 13:00 Ropivacaine 34 ml/Dexamethasone 8 mg/Epinephrine HCl 0.4 mg/ Sodium Chloride 43.6 ml 0 ml NERVRT ASDIRECTED [facility] Last Admin: 06/12/20 13:30 Dose: 80 syringe Documented by: Dexamethasone (Decadron) Confirm Administered Dose 4 mg .ROUTE .STK-MED ONE Stop: 06/12/20 10:46 Docusate Sodium (Colace) 100 mg PO BID [facility] Last Admin: 06/15/20 20:51 Dose: Not Given Documented by: Ephedrine Sulfate (Ephedrine Sulfate) Confirm Administered Dose 50 mg .ROUTE .STK-MED ONE Stop: 06/12/20 13:02 Fentanyl (Sublimaze) Confirm Administered Dose 250 mcg .ROUTE .STK-MED ONE Stop: 06/12/20 10:48 Furosemide (Lasix) 10 mg IVPUSH ONETIME ONE Stop: 06/13/20 10:01 Last Admin: 06/13/20 09:37 Dose: 10 mg Documented by: Furosemide (Lasix) 20 mg IVPUSH ONETIME ONE Stop: 06/13/20 17:31 Last Admin: 06/13/20 17:54 Dose: 20 mg Documented by: Furosemide (Lasix) 10 mg IVPUSH ONETIME ONE Stop: 06/14/20 04:34 Last Admin: 06/14/20 05:05 Dose: 10 mg Documented by: Furosemide (Lasix) 40 mg IVPUSH ONETIME ONE Stop: 06/14/20 10:01 Last Admin: 06/14/20 11:46 Dose: 40 mg Documented by: Furosemide (Lasix) 40 mg IVPUSH ONETIME ONE Stop: 06/15/20 09:01 Last Admin: 06/15/20 08:40 Dose: 40 mg Documented by: Furosemide (Lasix) 40 mg IVPUSH BID [facility] Last Admin: 06/15/20 20:52 Dose: 40 mg Documented by: Furosemide (Lasix) 40 mg IVPUSH ONETIME ONE Stop: 06/16/20 03:33 Last Admin: 06/16/20 03:41 Dose: 40 mg Documented by: Furosemide (Lasix) 40 mg IVPUSH BID@0800,1600 [facility] Last Admin: 06/16/20 15:42 Dose: 40 mg Documented by: Glycopyrrolate (Robinul) Confirm Administered Dose 1 mg .ROUTE .STK-MED ONE Stop: 06/12/20 10:46 Heparin Sodium (Porcine) (Heparin Lock Flush 100 Units/Ml) Confirm Administered Dose 1,000 units .ROUTE .STK-MED ONE Stop: 06/12/20 10:40 Hydromorphone HCl (Dilaudid Cleater 15 Mg In Ns 30 Ml) 0 mg IV ASDIRECTED PRN; Protocol PRN Reason: [employer] Last Admin: 06/16/20 03:06 Dose: 15 mg Documented by: Dextrose/Lactated Ringer's (Dextrose 5%-Lactated Ringers) 1,000 mls @ 200 mls/hr IV ASDIRECTED [facility] Last Admin: 06/12/20 04:15 Dose: 100 mls/hr Documented by: Aztreonam 1 gm/ Sodium (Chloride) 50 mls @ 100 mls/hr IV Q8H [facility] Last Admin: 06/12/20 05:56 Dose: 100 mls/hr Documented by: Lactated Ringer's (Ringers, Lactated) 500 mls @ 500 mls/hr IV BOLUS ONE Stop: 06/12/20 05:54 Last Admin: 06/12/20 04:57 Dose: 500 mls/hr Documented by: Lactated Ringer's (Ringers, Lactated) 1,000 mls @ 750 mls/hr IV ONETIME ONE Stop: 06/12/20 08:03 Last Admin: 06/12/20 07:24 Dose: 750 mls/hr Documented by: Norepinephrine Bitartrate 8 mg (/ Dextrose/Water) 258 mls @ 3.87 mls/hr IV TITRATE [facility]; Protocol Last Infusion: 06/12/20 15:19 Dose: 0 mcg/min, 0 mls/hr Documented by: Dextrose/Water (Dextrose 5% In Water) Confirm Administered Dose 250 mls @ as directed .ROUTE .[facility] ONE Stop: 06/12/20 06:47 Last Admin: 06/12/20 17:24 Dose: Not Given Documented by: Piperacillin/Tazobactam/ (Dextrose 3.375 gm/ Premix) 50 mls @ 100 mls/hr IV Q6H [facility] Last Admin: 06/12/20 07:36 Dose: 100 mls/hr Documented by: Aztreonam 1 gm/ Sodium (Chloride) 50 mls @ 100 mls/hr IV Q8H [facility] Last Admin: 06/14/20 05:05 Dose: 100 mls/hr Documented by: Sodium Chloride (Normal Saline) Confirm Administered Dose 10 mls @ as directed .ROUTE .ST-MED ONE Stop: 06/12/20 13:03 Heparin Sodium (Porcine) 5,000 (units/ Sodium Chloride) 501 mls @ 1 mls/hr IV ASDIRECTED [facility] Last Admin: 06/12/20 16:27 Dose: 1 mls/hr Documented by: Heparin Sodium (Porcine) 5,000 (units/ Sodium Chloride) 501 mls @ 1 mls/hr IV ASDIRECTED [facility] Last Admin: 06/12/20 16:28 Dose: 1 mls/hr Documented by: Dextrose/Ringer's (Dextrose 5%-Ringers) Confirm Administered Dose 1,000 mls @ as directed .ROUTE .STK-MED ONE Stop: 06/12/20 13:52 Dextrose/Lactated Ringer's (Dextrose 5%-Lactated Ringers) 1,000 mls @ 150 mls/hr IV ASDIRECTED [facility] Stop: 06/13/20 11:59 Last Admin: 06/13/20 06:45 Dose: 150 mls/hr Documented by: Multivitamins/Minerals 10 ml/Thiamine HCl 100 mg/ Zinc 1 ml / Dextrose/Lactated Ringer's 1,012 mls @ 150 mls/hr IV ONETIME ONE Stop: 06/12/20 22:44 Last Admin: 06/12/20 16:55 Dose: 150 mls/hr Documented by: Magnesium Sulfate (Magnesium Sulfate In Water 2 Gm/50 Ml) 2 gm in 50 mls @ 25 mls/hr IV Q6HR [facility] Stop: 06/15/20 11:59 Last Admin: 06/15/20 10:22 Dose: 25 mls/hr Documented by: Lactated Ringer's (Ringers, Lactated) 500 mls @ 500 mls/hr IV ONETIME ONE Stop: 06/13/20 06:59 Last Admin: 06/13/20 06:00 Dose: 500 mls/hr Documented by: Albumin Human (Albumin 25%) 25 gm in 100 mls @ 25 mls/hr IV Q24H [facility] Stop: 06/16/20 13:59 Last Admin: 06/16/20 09:54 Dose: 25 mls/hr Documented by: Multivitamins/Minerals 10 ml/Zinc 1 ml/ Amino Acids/Dextrose 1,011 mls @ 100 mls/hr IV .BY DURATION [facility] Last Admin: 06/15/20 10:12 Dose: 100 mls/hr Documented by: Amino Acids/Dextrose (Clinimix 5/15) 1,000 mls @ 100 mls/hr IV .BY DURATION [facility] Last Admin: 06/14/20 21:35 Dose: 100 mls/hr Documented by: Dextrose/Lactated Ringer's (Dextrose 5%-Lactated Ringers) 1,000 mls @ 50 mls/hr IV ASDIRECTED [facility] Last Admin: 06/15/20 14:48 Dose: 50 mls/hr Documented by: Calcium Gluconate 2 gm/ Sodium (Chloride) 120 mls @ 100 mls/hr IV ONETIME ONE Stop: 06/13/20 12:11 Last Admin: 06/13/20 12:30 Dose: 100 mls/hr Documented by: Calcium Gluconate 2 gm/ Sodium (Chloride) 120 mls @ 100 mls/hr IV ONETIME ONE Stop: 06/13/20 19:01 Last Admin: 06/13/20 18:05 Dose: 100 mls/hr Documented by: Lactated Ringer's (Ringers, Lactated) 500 mls @ 1,000 mls/hr IV ASDIRECTED [facility] Last Admin: 06/14/20 02:25 Dose: 1,000 mls/hr Documented by: Albumin Human (Albumin 25%) 25 gm in 100 mls @ 25 mls/hr IV Q24H [facility] Stop: 06/16/20 17:59 Last Admin: 06/16/20 13:34 Dose: 25 mls/hr Documented by: Ciprofloxacin/Dextrose 400 mg/ (Premix) 200 mls @ 200 mls/hr IV Q12H [facility] Stop: 06/14/20 18:00 Last Admin: 06/14/20 15:58 Dose: 200 mls/hr Documented by: Potassium Acetate 40 meq/ (Sodium Chloride) 120 mls @ 30 mls/hr IV ONETIME ONE Stop: 06/15/20 12:59 Last Admin: 06/15/20 08:46 Dose: 30 mls/hr Documented by: Multivitamins/Minerals 10 ml/Zinc 1 ml/ Amino Acids/Dextrose 1,011 mls @ 100 mls/hr IV .BY DURATION [facility] Amino Acids/Dextrose (Clinimix 5/15) 1,000 mls @ 100 mls/hr IV .BY DURATION [facility] Multivitamins/Minerals 10 ml/Zinc 1 ml/ Amino Ac/Electrol/Dextrose/Calcium 2,011 mls @ 100 mls/hr IV .BY DURATION [facility] Last Admin: 06/16/20 16:48 Dose: 100 mls/hr Documented by: Amino Ac/Electrol/Dextrose/Calcium (Clinimix E 5/15) 2,000 mls @ 100 mls/hr IV .BY DURATION [facility] Lidocaine/Epinephrine (Xylocaine 1% With Epinephrine 1:100,000) Confirm Administered Dose 50 ml .ROUTE .STK-MED ONE Stop: 06/12/20 13:00 Meropenem (Merrem) Confirm Administered Dose 500 mg .ROUTE .STK-MED ONE Stop: 06/12/20 13:03 Naloxone HCl (Narcan) 0.1 mg IV ASDIRECTED PRN PRN Reason: decreased respiratory rate Neostigmine Methylsulfate (Neostigmine) Confirm Administered Dose 5 mg .ROUTE .STK-MED ONE Stop: 06/12/20 10:46 Norepinephrine Bitartrate (Levophed) Confirm Administered Dose 8 mg .ROUTE .STK-MED ONE Stop: 06/12/20 06:46 Last Admin: 06/12/20 17:46 Dose: Not Given Documented by: Ondansetron HCl (Zofran) Confirm Administered Dose 4 mg .ROUTE .STK-MED ONE Stop: 06/12/20 10:46 Potassium Chloride (Klor-Con M20) 40 meq PO ONETIME ONE Stop: 06/17/20 09:01 Last Admin: 06/17/20 08:44 Dose: 40 meq Documented by: Propofol (Diprivan 20 Ml) Confirm Administered Dose 200 mg .ROUTE .STK-MED ONE Stop: 06/12/20 10:46 Rocuronium [place] (Zemuron) Confirm Administered Dose 50 mg .ROUTE .STK-MED ONE Stop: 06/12/20 10:46 Sodium Polystyrene Sulfonate (Kayexalate) 30 gm PO ONETIME ONE Stop: 06/13/20 08:46 Last Admin: 06/13/20 08:55 Dose: 30 gm Documented by: Succinylcholine Chloride (Quelicin) Confirm Administered Dose 200 mg .ROUTE .STK-MED ONE Stop: 06/12/20 10:46 Tamsulosin HCl (Flomax) 0.4 mg PO NOW ONE Stop: 06/15/20 07:31 Last Admin: 06/15/20 08:40 Dose: 0.4 mg Documented by: - Exam Quality Assessment: No: Supplemental Oxygen General: Alert, Oriented, Cooperative, No Acute Distress HEENT: Other (slow bleeding from right nare ) Neck: Supple Lungs: Clear to Auscultation, Normal Respiratory Effort, Decreased Breath Sounds (mild both bases) Cardiovascular: Regular Rate, Regular Rhythm GI/Abdominal Exam: Soft, No Distention, Abnormal Bowel Sounds (hyperactive ) Extremities: Pedal Edema. No: Increased Warmth Skin: Warm, Dry Psy/Mental Status: Alert, Normal Affect Sepsis Event Note - Evaluation Sepsis Screening Result: No Definite Risk - Focused Exam Vital Signs: Vital Signs Temp Temp Pulse Resp BP Pulse Ox 06/17/20 11:15 36.1 C 61 18 168/76 H 06/17/20 11:00 35.7 C L 65 18 160/89 H 06/17/20 07:00 36.4 C 68 18 157/76 H 96 06/17/20 03:04 36.6 C 70 18 157/89 H 96 - Problem List Review Problem List Initiated/Reviewed/Updated: Yes - Plan Plan:: ASSESSMENT AND PLAN - Acute cholecystitis with septic shock-status post cholecystectomy with resolution of sepsis. Steadily improving. Cultures grew out Pseudomonas and VRE. Tolerating current antibiotics. He is having some diarrhea, C. difficile was negative. -Postoperative care as per Dr. Viveros -Continue linezolid for VRE -Consider de-escalation to monotherapy for Pseudomonas -symptomatic management of pain and nausea Stage IV chronic kidney disease-creatinine stable and urine output adequate. Lower extremity edema improving with diuresis. -Labs in the morning Persistent epistaxis-Rhino Rocket placed on the right side today. Also utilizing Afrin. -Reassess in the morning, consider bilateral Rhino Rockets Status post Prashanth-en-Y gastric bypass surgery Maintenance issues - - DVT prophylaxis -mechanical - GI prophylaxis -PPI - Nutrition -bariatric diet Disposition -I would anticipate discharge home possibly with home care after the hospital stay Amilcar Berry M.D.
[2020-06-17] MEDS: Atropine/Diphenoxylate 0.025-2.5 MG Tab PO PRN ×2 (11:46→19:25)
[2020-06-17] MEDS: Oxymetazoline 0.05% Nasal Spray 30 ML Bottle NASLF SCH ×2 (11:58→20:21)
--- NOTE | 2020-06-17 13:08 | PN ---
DATE OF SERVICE: 06/16/2020 The patient has been afebrile with stable vital signs. Blood pressure is somewhat elevated at this point. We will continue to augment some diuresis with him. Otherwise, oral intake is improving. We will go up to a step-4 diet today. Plan is to continue the present antibiotics. We will transfer him to the second floor if beds are available. Karri Viveros MD /[id number]
[2020-06-17] MEDS: Ciprofloxacin in D5W 400 MG in Premix Bag 1 BAG IV SCH ×2 (15:29)
--- NOTE | 2020-06-17 16:26 | PN ---
DATE OF SERVICE: 06/13/2020 Since the surgery, the patient has now defervesced running temperatures of 97 to 98 range, heart rates in the 70s, and blood pressure of 102/67 with patient now being off any pressors. From respiratory standpoint, his arterial blood gases on room air, initial pH is 7.32, pCO2 of 24, pO2 of 87, and O2 saturations of 96. His metabolic acidosis has gradually been improving. Measured carbon dioxide on the electrolyte panel was 11 yesterday morning. It gradually crept up to 14, which also corresponds with what we are seeing on the blood gases. The biggest problem overnight has been relatively urine low output. He received 1 unit of blood additionally as well as 2 boluses of LR during the night. Creatinine yesterday morning was 2.4, presently is 2.6. His CVP is beginning to creep up, so we maybe getting that filled up. We will check some urine electrolytes this morning along with osmolality and then give a small test dose of Lasix. Otherwise, continue the oral IV rate at 150 and bolus as needed based on urine output and CVP pattern. Otherwise, he has not had any nausea. No bowel movement as of yet. SIDNEY drainage is serous. Bilirubin is up to 2.7. The liver function tests overall are otherwise improved somewhat from preoperatively, so we would suggest this is probably more of a stress response in the liver as opposed to a stone or other common bile duct problems. The patient is otherwise alert and communicative and is getting a fair bit of edema. We will begin some albumin today along with the TPN, and also with the Prashanth-en-Y gastric bypass, we will need to await for ileus to resolve. We will begin some Neftali today to get some oral intake. Electrolytes are notable for potassium now at 5.9. We will give 15 g of Kayexalate this morning and then recheck a BMP at noon and at 5 p.m. The gallbladder cultures have gram-positive cocci and gram-negative rods. Presently, he is on piperacillin, Azactam, and Zyvox. He certainly is at risk for having a resistant staph at play given his recent stay at the [facility] for a stem cell transplant, so we will continue the Zyvox until we get some more sensitivity patterns, which will probably be available tomorrow. Otherwise, his white count is 15,000, hemoglobin is up to 11. White count actually went up somewhat but that maybe a good sign in terms of him having more of an appropriate immune response developing to the infectious process and septic shock that he had yesterday. Otherwise, we will give him some KELLY hose to try to get some of the edema out of the legs, and Physical Therapy to see the patient along with nursing to begin getting him up and moving. Karri Viveros MD /[id number]
[2020-06-17] MEDS: Tamsulosin 0.4 MG Cap.ER PO SCH ×2 (19:35→20:25)
[2020-06-17] MEDS ORDERED: LORazepam 0.5 MG Tab PO PRN (20:20)
[2020-06-18] MEDS: Piperacillin/Tazobactam/Dext 2.25 GM in Premix Bag 1 BAG IV SCH ×4 (02:37→21:21)
[2020-06-18] MEDS: Linezolid 600 MG in Premix Bag 1 BAG IV SCH ×2 (02:38→15:19)
[2020-06-18] MEDS: Acetaminophen 500 MG Tab PO SCH ×4 (02:39→17:18)
[2020-06-18] MEDS: diphenhydrAMINE 50 MG/ML SDV IVPUSH PRN (03:31)
--- NOTE | 2020-06-18 08:27 | PN ---
DATE OF SERVICE: 06/14/2020 The patient has been afebrile. Stable vital signs. Urineoutput remains a problematic issue. He been receiving some intermittent boluses as well as some Lasix. Creatinine is stable over the last 3 days, at 2.6. Otherwise, we will restart some oral intake today. Did take some chocolate shakes yesterday and he will go to a step-3 diet today with chocolate shakes and he does like the Ensure Clear, he did not like the and we will stop that. The cultures on the gallbladder area are still pending, so continue the present antibiotics. We are awaiting the sensitivities on those cultures. Otherwise, blood gases looked good now with metabolic acidosis. Currently, his carbon dioxide and the lytes are up this morning. His pH now is normal at 7.36. With Kayexalate, potassium came down to 4.4 and I gave him an additional Kayexalate today small bowel. Did get up walking yesterday and we will have do some more walking today and otherwise begin some bowel stimulation. The arterial line can be discontinued at this point and continue the present TPN. Karri Viveros MD /[id number]
--- NOTE | 2020-06-18 08:41 | PN ---
DATE OF SERVICE: 06/15/2020 The patient has been afebrile with stable vital signs, continues to gradually improve. The edema is going down somewhat and oral intake with the Ensure Clear along with TPN for nutritional replenishment along with some IV albumin. We will give him some IV Lasix this morning and then get the Ann out in 3 hours after that. We will give him some Flomax and we will make sure he is able to void and otherwise maximize activity and work with pulmonary toilet. The cultures are growing a vancomycin resistant Enterococcus. He is sensitive to linezolid that is on and also grew out Pseudomonas and we added Cipro to the piperacillin for which it is both sensitive, and at this point, we need to discontinue the Azactam. Karri Viveros MD /[id number]
--- NOTE | 2020-06-18 09:42 | PN ---
DATE OF SERVICE: 06/18/2020 SUBJECTIVE: Hill's platelets this morning were 69. He has some bleeding from his nose for which a Rhino Rocket was placed yesterday by Amilcar Berry MD. He also has an area on his arm where he has bumped his arm, and it has been bleeding quite a bit. He has been up every 30 minutes or so to void, and he has been incontinent. Has not slept per nursing staff for the last 2 to 3 nights. Afebrile, vital signs stable. REVIEW OF SYSTEMS: Remainder of the review of systems is negative for any pertinent positives or negatives. OBJECTIVE: GENERAL: Hill Gudino is a pleasant 69-year-old male, quiet today. VITAL SIGNS: TPR is 97.7, 103, 18, and blood pressure 177/78. HEENT: Negative. NECK: Supple. HEART: Regular rate and rhythm. LUNGS: Clear. ABDOMEN: Dressings dry and intact. Abdominal binder is on. EXTREMITIES: Without peripheral edema. ASSESSMENT: Diagnostic laparoscopy with cholecystectomy, drainage of pericholecystic abscess, removal of peritoneal nodule transverse colon 06/12/2020. Surgeon: Karri Viveros MD, for acute cholecystitis and peritoneal nodules. PLAN: 1. Postvoid bladder scan. 2. Check CBC and CMP in a.m. 3. We will evaluate p.r.n. or in the a.m. Luciana Gaitan PA-C /[id number]
[2020-06-18] MEDS: Lactobacillus Rhamnosus GG (Probiotic) Cap PO SCH ×2 (09:48→21:36)
[2020-06-18] MEDS: Oxymetazoline 0.05% Nasal Spray 30 ML Bottle NASLF SCH ×2 (09:50→21:23)
[2020-06-18] MEDS: Megestrol Susp 40 MG/ML ML (240 ML Bottle) PO SCH ×2 (09:50→21:37)
[2020-06-18] MEDS: Sertraline 25 MG Tab PO SCH (09:51)
--- NOTE | 2020-06-18 12:09 | PCM.PN ---
- General Info Date of Service: 06/18/20 Subjective Update: There were no acute events overnight. He did have a slow oozing from his nostrils that continued overnight but seems to have stopped this morning. He reports that his pain is well controlled. His strength is slowly improving. No nausea. Tolerating his diet. No fevers. In general he is feeling better. Functional Status: Reports: Pain Controlled, Tolerating Diet - Patient Data Vitals - Most Recent: Last Vital Signs Temp 36.1 C 06/18/20 11:02 Pulse 63 06/18/20 11:02 Resp 14 06/18/20 11:02 BP 155/77 H 06/18/20 11:02 Pulse Ox 100 06/18/20 11:02 Weight - Most Recent: 80.5 kg I&O - Last 24 Hours: Intake & Output 06/17/20 06/18/20 06/18/20 22:59 06:59 14:59 Intake Total 1731 Output Total 110 130 70 Balance 1621 -130 -70 Lab Results Last 24 Hours: Laboratory Results - last 24 hr 06/17/20 06/18/20 06/18/20 Range/Units 08:10 04:00 04:00 WBC 8.9 (4.5-11.0) K/uL RBC 3.67 L (4.30-5.90) M/uL Hgb 10.8 L D (12.0-15.0) g/dL Hct 31.2 L (40.0-54.0) % MCV 85 (80-98) fL MCH 29 (27-31) pg MCHC 35 (32-36) % Plt Count 69 L (150-400) K/uL Sodium 138 L (140-148) mmol/L Potassium 3.8 (3.6-5.2) mmol/L Chloride 101 (100-108) mmol/L Carbon Dioxide 27 (21-32) mmol/L Anion Gap 13.8 (5.0-14.0) mmol/L BUN 94 H* (7-18) mg/dL Creatinine 2.6 H (0.8-1.3) mg/dL Est Cr Clr Drug Dosing 24.20 mL/min Estimated GFR (MDRD) 25 L (>60) Glucose 124 H (74-106) mg/dL Calcium 7.9 L (8.5-10.1) mg/dL Phosphorus 4.9 (2.5-4.9) mg/dL Magnesium 3.8 H (1.8-2.4) mg/dL Total Bilirubin 3.3 H (0.2-1.0) mg/dL AST 30 (15-37) U/L ALT 46 (12-78) U/L Alkaline Phosphatase 589 H (46-116) U/L NT-Pro-B Natriuret Pep 60564 H (5-125) pg/mL Total Protein 4.7 L (6.4-8.2) g/dL Albumin 2.4 L (3.4-5.0) g/dL Globulin 2.3 (2.3-3.5) g/dL Albumin/Globulin Ratio 1.0 L (1.2-2.2) Crossmatch See Detail Med Orders - Current: Current Medications Acetaminophen (Tylenol Extra Strength) 1,000 mg PO Q6HR [facility] Last Admin: 06/18/20 09:52 Dose: 1,000 mg Documented by: Diphenhydramine HCl (Benadryl) 50 mg IVPUSH BEDTIME PRN PRN Reason: Insomnia Last Admin: 06/18/20 03:31 Dose: 50 mg Documented by: Diphenhydramine HCl (Benadryl) 50 mg PO BEDTIME PRN PRN Reason: Insomnia Diphenoxylate HCl/Atropine (Lomotil 0.025-2.5 Mg) 1 tab PO Q6H PRN PRN Reason: Diarrhea Last Admin: 06/17/20 19:25 Dose: 1 tab Documented by: Heparin Sodium (Porcine) (Heparin Lock Flush 100 Units/Ml) 500 units FLUSH ASDIRECTED PRN PRN Reason: Other Last Admin: 06/17/20 20:21 Dose: 500 units Documented by: Hydroxyzine HCl (Vistaril) 100 mg IM Q4H PRN PRN Reason: pain Piperacillin/Tazobactam/ (Dextrose 2.25 gm/ Premix) 50 mls @ 100 mls/hr IV Q6H [facility] Last Admin: 06/18/20 08:52 Dose: 100 mls/hr Documented by: Linezolid 600 mg/ Premix 300 mls @ 300 mls/hr IV Q12H [facility] Last Admin: 06/18/20 02:38 Dose: 300 mls/hr Documented by: Ciprofloxacin/Dextrose 400 mg/ (Premix) 200 mls @ 200 mls/hr IV Q24H [facility] Last Admin: 06/17/20 15:29 Dose: 200 mls/hr Documented by: Lactated Ringer's (Ringers, Lactated) 1,000 mls @ 0 mls/hr IV ASDIRECTED [facility] Last Admin: 06/16/20 09:50 Dose: 25 mls/hr Documented by: Lactobacillus Rhamnosus (Culturelle) 1 cap PO BID [facility] Last Admin: 06/18/20 09:48 Dose: 1 cap Documented by: Lorazepam (Ativan) 0.5 mg PO Q4H PRN PRN Reason: Anxiety Megestrol Acetate (Megace 40 Mg/Ml Susp) 200 mg PO BID [facility] Last Admin: 06/18/20 09:50 Dose: 200 mg Documented by: Oxycodone HCl (Oxycodone) 5 mg PO Q4H PRN PRN Reason: Pain Oxymetazoline HCl (Nasal Decongestant [place]) 0 ml NASLF BID [facility] Stop: 06/19/20 21:01 Last Admin: 06/18/20 09:50 Dose: 2 sprays Documented by: Sertraline HCl (Zoloft) 75 mg PO DAILY [facility] Last Admin: 06/18/20 09:51 Dose: 75 mg Documented by: Tamsulosin HCl (Flomax) 0.4 mg PO BEDTIME [facility] Last Admin: 06/17/20 20:25 Dose: Not Given Documented by: Discontinued Medications Bisacodyl (Dulcolax) 10 mg PO BID [facility] Last Admin: 06/15/20 20:51 Dose: 10 mg Documented by: Bupivacaine HCl (Marcaine 0.5%) Confirm Administered Dose 50 ml .ROUTE .STK-MED ONE Stop: 06/12/20 13:00 Ropivacaine 34 ml/Dexamethasone 8 mg/Epinephrine HCl 0.4 mg/ Sodium Chloride 43.6 ml 0 ml NERVRT ASDIRECTRED [facility] Last Admin: 06/12/20 13:30 Dose: 80 syringe Documented by: Dexamethasone (Decadron) Confirm Administered Dose 4 mg .ROUTE .STK-MED ONE Stop: 06/12/20 10:46 Docusate Sodium (Colace) 100 mg PO BID [facility] Last Admin: 06/15/20 20:51 Dose: Not Given Documented by: Ephedrine Sulfate (Ephedrine Sulfate) Confirm Administered Dose 50 mg .ROUTE .STK-MED ONE Stop: 06/12/20 13:02 Fentanyl (Sublimaze) Confirm Administered Dose 250 mcg .ROUTE .STK-MED ONE Stop: 06/12/20 10:48 Furosemide (Lasix) 10 mg IVPUSH ONETIME ONE Stop: 06/13/20 10:01 Last Admin: 06/13/20 09:37 Dose: 10 mg Documented by: Furosemide (Lasix) 20 mg IVPUSH ONETIME ONE Stop: 06/13/20 17:31 Last Admin: 06/13/20 17:54 Dose: 20 mg Documented by: Furosemide (Lasix) 10 mg IVPUSH ONETIME ONE Stop: 06/14/20 04:34 Last Admin: 06/14/20 05:05 Dose: 10 mg Documented by: Furosemide (Lasix) 40 mg IVPUSH ONETIME ONE Stop: 06/14/20 10:01 Last Admin: 06/14/20 11:46 Dose: 40 mg Documented by: Furosemide (Lasix) 40 mg IVPUSH ONETIME ONE Stop: 06/15/20 09:01 Last Admin: 06/15/20 08:40 Dose: 40 mg Documented by: Furosemide (Lasix) 40 mg IVPUSH BID [facility] Last Admin: 06/15/20 20:52 Dose: 40 mg Documented by: Furosemide (Lasix) 40 mg IVPUSH ONETIME ONE Stop: 06/16/20 03:33 Last Admin: 06/16/20 03:41 Dose: 40 mg Documented by: Furosemide (Lasix) 40 mg IVPUSH BID@0800,1600 [facility] Last Admin: 06/16/20 15:42 Dose: 40 mg Documented by: Furosemide (Lasix) 20 mg IVPUSH Q9H [facility] Stop: 06/17/20 18:01 Last Admin: 06/17/20 17:49 Dose: 20 mg Documented by: Glycopyrrolate (Robinul) Confirm Administered Dose 1 mg .ROUTE .STK-MED ONE Stop: 06/12/20 10:46 Heparin Sodium (Porcine) (Heparin Lock Flush 100 Units/Ml) Confirm Administered Dose 1,000 units .ROUTE .STK-MED ONE Stop: 06/12/20 10:40 Hydromorphone HCl (Dilaudid Color Depositing Machine Tender 15 Mg In Ns 30 Ml) 0 mg IV ASDIRECTED PRN; Protocol PRN Reason: [employer] Last Admin: 06/16/20 03:06 Dose: 15 mg Documented by: Dextrose/Lactated Ringer's (Dextrose 5%-Lactated Ringers) 1,000 mls @ 200 mls/hr IV ASDIRECTED [facility] Last Admin: 06/12/20 04:15 Dose: 100 mls/hr Documented by: Aztreonam 1 gm/ Sodium (Chloride) 50 mls @ 100 mls/hr IV Q8H [facility] Last Admin: 06/12/20 05:56 Dose: 100 mls/hr Documented by: Lactated Ringer's (Ringers, Lactated) 500 mls @ 500 mls/hr IV BOLUS ONE Stop: 06/12/20 05:54 Last Admin: 06/12/20 04:57 Dose: 500 mls/hr Documented by: Lactated Ringer's (Ringers, Lactated) 1,000 mls @ 750 mls/hr IV ONETIME ONE Stop: 06/12/20 08:03 Last Admin: 06/12/20 07:24 Dose: 750 mls/hr Documented by: Norepinephrine Bitartrate 8 mg (/ Dextrose/Water) 258 mls @ 3.87 mls/hr IV TITRATE [facility]; Protocol Last Infusion: 06/12/20 15:19 Dose: 0 mcg/min, 0 mls/hr Documented by: Dextrose/Water (Dextrose 5% In Water) Confirm Administered Dose 250 mls @ as directed .ROUTE .STK-MED ONE Stop: 06/12/20 06:47 Last Admin: 06/12/20 17:24 Dose: Not Given Documented by: Piperacillin/Tazobactam/ (Dextrose 3.375 gm/ Premix) 50 mls @ 100 mls/hr IV Q6H [facility] Last Admin: 06/12/20 07:36 Dose: 100 mls/hr Documented by: Aztreonam 1 gm/ Sodium (Chloride) 50 mls @ 100 mls/hr IV Q8H [facility] Last Admin: 06/14/20 05:05 Dose: 100 mls/hr Documented by: Sodium Chloride (Normal Saline) Confirm Administered Dose 10 mls @ as directed .ROUTE .STK-MED ONE Stop: 06/12/20 13:03 Heparin Sodium (Porcine) 5,000 (units/ Sodium Chloride) 501 mls @ 1 mls/hr IV ASDIRECTED [facility] Last Admin: 06/12/20 16:27 Dose: 1 mls/hr Documented by: Heparin Sodium (Porcine) 5,000 (units/ Sodium Chloride) 501 mls @ 1 mls/hr IV ASDIRECTED [facility] Last Admin: 06/12/20 16:28 Dose: 1 mls/hr Documented by: Dextrose/Ringer's (Dextrose 5%-Ringers) Confirm Administered Dose 1,000 mls @ as directed .ROUTE .K-MED ONE Stop: 06/12/20 13:52 Dextrose/Lactated Ringer's (Dextrose 5%-Lactated Ringers) 1,000 mls @ 150 mls/hr IV ASDIRECTED [facility] Stop: 06/13/20 11:59 Last Admin: 06/13/20 06:45 Dose: 150 mls/hr Documented by: Multivitamins/Minerals 10 ml/Thiamine HCl 100 mg/ Zinc 1 ml / Dextrose/Lactated Ringer's 1,012 mls @ 150 mls/hr IV ONETIME ONE Stop: 06/12/20 22:44 Last Admin: 06/12/20 16:55 Dose: 150 mls/hr Documented by: Magnesium Sulfate (Magnesium Sulfate In Water 2 Gm/50 Ml) 2 gm in 50 mls @ 25 mls/hr IV Q6HR [facility] Stop: 06/15/20 11:59 Last Admin: 06/15/20 10:22 Dose: 25 mls/hr Documented by: Lactated Ringer's (Ringers, Lactated) 500 mls @ 500 mls/hr IV ONETIME ONE Stop: 06/13/20 06:59 Last Admin: 06/13/20 06:00 Dose: 500 mls/hr Documented by: Albumin Human (Albumin 25%) 25 gm in 100 mls @ 25 mls/hr IV Q24H [facility] Stop: 06/16/20 13:59 Last Admin: 06/16/20 09:54 Dose: 25 mls/hr Documented by: Multivitamins/Minerals 10 ml/Zinc 1 ml/ Amino Acids/Dextrose 1,011 mls @ 100 mls/hr IV .BY DURATION [facility] Last Admin: 06/15/20 10:12 Dose: 100 mls/hr Documented by: Amino Acids/Dextrose (Clinimix 5/15) 1,000 mls @ 100 mls/hr IV .BY DURATION [facility] Last Admin: 06/14/20 21:35 Dose: 100 mls/hr Documented by: Dextrose/Lactated Ringer's (Dextrose 5%-Lactated Ringers) 1,000 mls @ 50 mls/hr IV ASDIRECTED [facility] Last Admin: 06/15/20 14:48 Dose: 50 mls/hr Documented by: Calcium Gluconate 2 gm/ Sodium (Chloride) 120 mls @ 100 mls/hr IV ONETIME ONE Stop: 06/13/20 12:11 Last Admin: 06/13/20 12:30 Dose: 100 mls/hr Documented by: Calcium Gluconate 2 gm/ Sodium (Chloride) 120 mls @ 100 mls/hr IV ONETIME ONE Stop: 06/13/20 19:01 Last Admin: 06/13/20 18:05 Dose: 100 mls/hr Documented by: Lactated Ringer's (Ringers, Lactated) 500 mls @ 1,000 mls/hr IV ASDIRECTED [facility] Last Admin: 06/14/20 02:25 Dose: 1,000 mls/hr Documented by: Albumin Human (Albumin 25%) 25 gm in 100 mls @ 25 mls/hr IV Q24H [facility] Stop: 06/16/20 17:59 Last Admin: 06/16/20 13:34 Dose: 25 mls/hr Documented by: Ciprofloxacin/Dextrose 400 mg/ (Premix) 200 mls @ 200 mls/hr IV Q12H [facility] Stop: 06/14/20 18:00 Last Admin: 06/14/20 15:58 Dose: 200 mls/hr Documented by: Potassium Acetate 40 meq/ (Sodium Chloride) 120 mls @ 30 mls/hr IV ONETIME ONE Stop: 06/15/20 12:59 Last Admin: 06/15/20 08:46 Dose: 30 mls/hr Documented by: Multivitamins/Minerals 10 ml/Zinc 1 ml/ Amino Acids/Dextrose 1,011 mls @ 100 mls/hr IV .BY DURATION [facility] Amino Acids/Dextrose (Clinimix 5/15) 1,000 mls @ 100 mls/hr IV .BY DURATION [facility] Multivitamins/Minerals 10 ml/Zinc 1 ml/ Amino Ac/Electrol/Dextrose/Calcium 2,011 mls @ 100 mls/hr IV .BY DURATION [facility] Last Admin: 06/16/20 16:48 Dose: 100 mls/hr Documented by: Amino Ac/Electrol/Dextrose/Calcium (Clinimix E 15) 2,000 mls @ 100 mls/hr IV .BY DURATION [facility] Lidocaine/Epinephrine (Xylocaine 1% With Epinephrine 1:100,000) Confirm Administered Dose 50 ml .ROUTE .STK-MED ONE Stop: 06/12/20 13:00 Meropenem (Merrem) Confirm Administered Dose 500 mg .ROUTE .STK-MED ONE Stop: 06/12/20 13:03 Naloxone HCl (Narcan) 0.1 mg IV ASDIRECTED PRN PRN Reason: decreased respiratory rate Neostigmine Methylsulfate (Neostigmine) Confirm Administered Dose 5 mg .ROUTE .STK-MED ONE Stop: 06/12/20 10:46 Norepinephrine Bitartrate (Levophed) Confirm Administered Dose 8 mg .ROUTE .STK- MED ONE Stop: 06/12/20 06:46 Last Admin: 06/12/20 17:46 Dose: Not Given Documented by: Ondansetron HCl (Zofran) Confirm Administered Dose 4 mg .ROUTE .STK-MED ONE Stop: 06/12/20 10:46 Potassium Chloride (Klor-Con M20) 40 meq PO ONETIME ONE Stop: 06/17/20 09:01 Last Admin: 06/17/20 08:44 Dose: 40 meq Documented by: Propofol (Diprivan 20 Ml) Confirm Administered Dose 200 mg .ROUTE .STK-MED ONE Stop: 06/12/20 10:46 Rocuronium [place] (Zemuron) Confirm Administered Dose 50 mg .ROUTE .STK-MED ONE Stop: 06/12/20 10:46 Sodium Polystyrene Sulfonate (Kayexalate) 30 gm PO ONETIME ONE Stop: 06/13/20 08:46 Last Admin: 06/13/20 08:55 Dose: 30 gm Documented by: Succinylcholine Chloride (Quelicin) Confirm Administered Dose 200 mg .ROUTE .STK-MED ONE Stop: 06/12/20 10:46 Tamsulosin HCl (Flomax) 0.4 mg PO NOW ONE Stop: 06/15/20 07:31 Last Admin: 06/15/20 08:40 Dose: 0.4 mg Documented by: - Exam Quality Assessment: No: Supplemental Oxygen General: Alert, Oriented, Cooperative, No Acute Distress HEENT: Other (rhino rocket right nare, no active bleeding but there is dried blood around nare) Lungs: Normal Respiratory Effort. No: Wheezing GI/Abdominal Exam: Soft, No Distention Extremities: Pedal Edema. No: Increased Warmth Skin: Warm, Dry Psy/Mental Status: Alert, Normal Affect Sepsis Event Note - Evaluation Sepsis Screening Result: No Definite Risk - Focused Exam Vital Signs: Vital Signs Temp Pulse Resp BP Pulse Ox 06/18/20 11:02 36.1 C 63 14 155/77 H 100 06/18/20 07:32 36.1 C 18 133/74 99 06/18/20 02:40 36.5 C 103 H 18 177/78 H 94 L - Problem List Review Problem List Initiated/Reviewed/Updated: Yes - My Orders Last 24 Hours: My Active Orders 06/17/20 11:45 Oxymetazoline [Nasal Decongestant [place]] 0 ml NASLF BID 06/17/20 20:20 LORazepam [Ativan] 0.5 mg PO Q4H PRN - Plan Plan:: ASSESSMENT AND PLAN - Acute cholecystitis with septic shock-status post cholecystectomy with resolution of sepsis. Steadily improving. Cultures grew out Pseudomonas and VRE. Tolerating current antibiotics. Diarrhea is better. -Postoperative care as per Dr. Viveros -Continue linezolid for VRE -Consider de-escalation to monotherapy for Pseudomonas -symptomatic management of pain and nausea Stage IV chronic kidney disease-creatinine stable and urine output adequate. Lower extremity edema improving with diuresis. -Labs in the morning Persistent epistaxis-Rhino Rocket placed on the right side Thursday. Also utilizing Afrin. Seems to have stopped bleeding today. -Reassess in the morning, anticipate Rhino Rocket removal tomorrow Status post Prashanth-en-Y gastric bypass surgery Maintenance issues - - DVT prophylaxis -mechanical - GI prophylaxis -PPI - Nutrition -bariatric diet Disposition -I would anticipate discharge home possibly with home care after the hospital stay Amilcar Berry M.D.
--- NOTE | 2020-06-18 14:15 | PN ---
DATE OF SERVICE: 06/17/2020 The patient has been afebrile with stable vital signs. Oral intake has been quite good and urine output is very high at this point. Creatinine is stable at 2.5. At this point, we will back down the TPN to 40 mL now for today and stop that when the present bag is done. His hemoglobin is 8.6. We will give him 1 unit of packed RBCs. He has been having some trouble with bloody nose. This was likely related to dry air, which he seems to also have this at home when he does get overly dry. Platelet count is 73, so there may be some issue with dysfunctional platelets as well. At any rate, we will try getting a humidifier in the room. If the nosebleeds continue, we may consider something to augment the platelet function. Karri Viveros MD /[id number]
[2020-06-18] MEDS: Ciprofloxacin in D5W 400 MG in Premix Bag 1 BAG IV SCH ×2 (17:19)
[2020-06-18] MEDS: Tamsulosin 0.4 MG Cap.ER PO SCH (21:36)
[2020-06-18] MEDS: Lactated Ringers 1,000 ML IV SCH (21:48)
[2020-06-19] MEDS: Acetaminophen 500 MG Tab PO SCH ×5 (00:32→21:54)
[2020-06-19] MEDS: Piperacillin/Tazobactam/Dext 2.25 GM in Premix Bag 1 BAG IV SCH ×4 (01:28→20:02)
[2020-06-19] MEDS: Linezolid 600 MG in Premix Bag 1 BAG IV SCH ×2 (02:52→15:21)
[2020-06-19] MEDS: Lactobacillus Rhamnosus GG (Probiotic) Cap PO SCH ×2 (08:03→21:54)
[2020-06-19] MEDS: Oxymetazoline 0.05% Nasal Spray 30 ML Bottle NASLF SCH ×2 (08:04→21:54)
[2020-06-19] MEDS: Sertraline 25 MG Tab PO SCH (08:04)
[2020-06-19] MEDS: Megestrol Susp 40 MG/ML ML (240 ML Bottle) PO SCH ×2 (08:04→21:54)
--- NOTE | 2020-06-19 09:08 | PN ---
DATE OF SERVICE: 06/19/2020 SUBJECTIVE: Hill's oral intake was 595. Urine output was 350+ incontinence. He did have a large bowel movement. SIDNEY drain put out 240 mL of a serosanguineous drainage. The pain has been controlled. He has been up ambulating. Labs were reviewed. Hemoglobin this morning was 8.6, creatinine 2.7, GFR 24, glucose 152, and total bilirubin is 1.9. REVIEW OF SYSTEMS: Remainder of the review of systems is negative for any pertinent positives or negatives. OBJECTIVE: GENERAL: Hill Gudino is a 69-year-old male. He is alert and orientated. SKIN: Color is pale. VITAL SIGNS: TPR at 0300; 97.3, 64, 20, and blood pressure 159/76. HEENT: Negative. NECK: Supple. HEART: Regular rate and rhythm. LUNGS: Clear. ABDOMEN: Dressings dry and intact. SIDNEY drain is intact. EXTREMITIES: Without peripheral edema. ASSESSMENT: 1. Diagnostic laparoscopy with cholecystectomy, drainage of pericholecystic abscess, removal of peritoneal nodule, transverse colon, 06/12/2020. Surgeon: Karri Viveros MD. 2. Postoperative diagnosis acute cholecystitis, peritoneal nodules, and status post septic shock. 3. Stage 4 chronic kidney disease. 4. Persistent epistaxis, Rhino Rocket placed, right side, 06/17/2020. PLAN: 1. Discontinue SIDNEY drain. 2. One doses of DDAVP, dosed per pharmacy IV. 3. One unit of packed red blood cells. 4. May shower. 5. Check CBC, CMP, mag, phos, and BNP in the a.m. 6. We will evaluate p.r.n. or in the a.m. Luciana Gaitan PA-C /[id number]
--- NOTE | 2020-06-19 11:01 | PCM.PN ---
- General Info Date of Service: 06/19/20 Subjective Update: No acute events overnight. Abdominal pain is steadily improving. No fevers. Kidney function stable. Epistaxis seems to have finally stopped. Feeling well and hoping to go home soon. Functional Status: Reports: Pain Controlled, Tolerating Diet - Patient Data Vitals - Most Recent: Last Vital Signs Temp 2.9 C L 06/19/20 10:15 Pulse 66 06/19/20 10:15 Resp 18 06/19/20 10:15 BP 139/67 06/19/20 10:15 Pulse Ox 97 06/19/20 10:15 Weight - Most Recent: 80.5 kg I&O - Last 24 Hours: Intake & Output 06/18/20 06/19/20 06/19/20 22:59 06:59 14:59 Intake Total 520 836 240 Output Total 70 295 600 Balance 450 541 -360 Lab Results Last 24 Hours: Laboratory Results - last 24 hr 06/19/20 06/19/20 Range/Units 04:00 04:00 WBC 7.7 (4.5-11.0) K/uL RBC 3.00 L (4.30-5.90) M/uL Hgb 8.6 L D (12.0-15.0) g/dL Hct 26.0 L (40.0-54.0) % MCV 87 (80-98) fL MCH 29 (27-31) pg MCHC 33 (32-36) % Plt Count 64 L (150-400) K/uL Sodium 138 L (140-148) mmol/L Potassium 3.7 (3.6-5.2) mmol/L Chloride 99 L (100-108) mmol/L Carbon Dioxide 27 (21-32) mmol/L Anion Gap 15.7 H (5.0-14.0) mmol/L BUN 99 H* (7-18) mg/dL Creatinine 2.7 H (0.8-1.3) mg/dL Est Cr Clr Drug Dosing 23.30 mL/min Estimated GFR (MDRD) 24 L (>60) Glucose 152 H (74-106) mg/dL Calcium 7.4 L (8.5-10.1) mg/dL Total Bilirubin 1.9 H (0.2-1.0) mg/dL AST 27 (15-37) U/L ALT 39 (12-78) U/L Alkaline Phosphatase 644 H (46-116) U/L Total Protein 4.1 L (6.4-8.2) g/dL Albumin 2.0 L (3.4-5.0) g/dL Globulin 2.1 L (2.3-3.5) g/dL Albumin/Globulin Ratio 1.0 L (1.2-2.2) Adan Results Last 24 Hours: Microbiology 06/12/20 13:57 Gram Stain - Final Gallbladder Wound Culture - Final Pseudomonas Aeruginosa (Vre) Enterococcus Faecium Anaerobic Culture - Final NO GROWTH AFTER 3 DAYS Med Orders - Current: Current Medications Acetaminophen (Tylenol Extra Strength) 1,000 mg PO Q6HR [facility] Last Admin: 06/19/20 09:17 Dose: Not Given Documented by: Diphenhydramine HCl (Benadryl) 50 mg IVPUSH BEDTIME PRN PRN Reason: Insomnia Last Admin: 06/18/20 03:31 Dose: 50 mg Documented by: Diphenhydramine HCl (Benadryl) 50 mg PO BEDTIME PRN PRN Reason: Insomnia Diphenoxylate HCl/Atropine (Lomotil 0.025-2.5 Mg) 1 tab PO Q6H PRN PRN Reason: Diarrhea Last Admin: 06/17/20 19:25 Dose: 1 tab Documented by: Heparin Sodium (Porcine) (Heparin Lock Flush 100 Units/Ml) 500 units FLUSH ASDIRECTED PRN PRN Reason: Other Last Admin: 06/19/20 04:19 Dose: 500 units Documented by: Hydroxyzine HCl (Vistaril) 100 mg IM Q4H PRN PRN Reason: pain Piperacillin/Tazobactam/ (Dextrose 2.25 gm/ Premix) 50 mls @ 100 mls/hr IV Q6H [facility] Last Admin: 06/19/20 08:03 Dose: 100 mls/hr Documented by: Linezolid 600 mg/ Premix 300 mls @ 300 mls/hr IV Q12H [facility] Last Admin: 06/19/20 02:52 Dose: 300 mls/hr Documented by: Lactated Ringer's (Ringers, Lactated) 1,000 mls @ 0 mls/hr IV ASDIRECTED [facility] Last Admin: 06/18/20 21:48 Dose: 25 mls/hr Documented by: Lactobacillus Rhamnosus (Culturelle) 1 cap PO BID [facility] Last Admin: 06/19/20 08:03 Dose: 1 cap Documented by: Lorazepam (Ativan) 0.5 mg PO Q4H PRN PRN Reason: Anxiety Megestrol Acetate (Megace 40 Mg/Ml Susp) 200 mg PO BID [facility] Last Admin: 06/19/20 08:04 Dose: 200 mg Documented by: Oxycodone HCl (Oxycodone) 5 mg PO Q4H PRN PRN Reason: Pain Oxymetazoline HCl (Nasal Decongestant [place]) 0 ml NASLF BID [facility] Stop: 06/19/20 21:01 Last Admin: 06/19/20 08:04 Dose: Not Given Documented by: Sertraline HCl (Zoloft) 75 mg PO DAILY [facility] Last Admin: 06/19/20 08:04 Dose: 75 mg Documented by: Tamsulosin HCl (Flomax) 0.4 mg PO BEDTIME [facility] Last Admin: 06/18/20 21:36 Dose: 0.4 mg Documented by: Discontinued Medications Bisacodyl (Dulcolax) 10 mg PO BID [facility] Last Admin: 06/15/20 20:51 Dose: 10 mg Documented by: Bupivacaine HCl (Marcaine 0.5%) Confirm Administered Dose 50 ml .ROUTE .STK-MED ONE Stop: 06/12/20 13:00 Ropivacaine 34 ml/Dexamethasone 8 mg/Epinephrine HCl 0.4 mg/ Sodium Chloride 43.6 ml 0 ml NERVRT ASDIRECTED [facility] Last Admin: 06/12/20 13:30 Dose: 80 syringe Documented by: Dexamethasone (Decadron) Confirm Administered Dose 4 mg .ROUTE .STK-MED ONE Stop: 06/12/20 10:46 Docusate Sodium (Colace) 100 mg PO BID [facility] Last Admin: 06/15/20 20:51 Dose: Not Given Documented by: Ephedrine Sulfate (Ephedrine Sulfate) Confirm Administered Dose 50 mg .ROUTE .STK-MED ONE Stop: 06/12/20 13:02 Fentanyl (Sublimaze) Confirm Administered Dose 250 mcg .ROUTE .STK-MED ONE Stop: 06/12/20 10:48 Furosemide (Lasix) 10 mg IVPUSH ONETIME ONE Stop: 06/13/20 10:01 Last Admin: 06/13/20 09:37 Dose: 10 mg Documented by: Furosemide (Lasix) 20 mg IVPUSH ONETIME ONE Stop: 06/13/20 17:31 Last Admin: 06/13/20 17:54 Dose: 20 mg Documented by: Furosemide (Lasix) 10 mg IVPUSH ONETIME ONE Stop: 06/14/20 04:34 Last Admin: 06/14/20 05:05 Dose: 10 mg Documented by: Furosemide (Lasix) 40 mg IVPUSH ONETIME ONE Stop: 06/14/20 10:01 Last Admin: 06/14/20 11:46 Dose: 40 mg Documented by: Furosemide (Lasix) 40 mg IVPUSH ONETIME ONE Stop: 06/15/20 09:01 Last Admin: 06/15/20 08:40 Dose: 40 mg Documented by: Furosemide (Lasix) 40 mg IVPUSH BID [facility] Last Admin: 06/15/20 20:52 Dose: 40 mg Documented by: Furosemide (Lasix) 40 mg IVPUSH ONETIME ONE Stop: 06/16/20 03:33 Last Admin: 06/16/20 03:41 Dose: 40 mg Documented by: Furosemide (Lasix) 40 mg IVPUSH BID@0800,1600 [facility] Last Admin: 06/16/20 15:42 Dose: 40 mg Documented by: Furosemide (Lasix) 20 mg IVPUSH Q9H [facility] Stop: 06/17/20 18:01 Last Admin: 06/17/20 17:49 Dose: 20 mg Documented by: Glycopyrrolate (Robinul) Confirm Administered Dose 1 mg .ROUTE .STK-MED ONE Stop: 06/12/20 10:46 Heparin Sodium (Porcine) (Heparin Lock Flush 100 Units/Ml) Confirm Administered Dose 1,000 units .ROUTE .STK-MED ONE Stop: 06/12/20 10:40 Hydromorphone HCl (Dilaudid Bleach Machine Operator 15 Mg In Ns 30 Ml) 0 mg IV ASDIRECTED PRN; Protocol PRN Reason: [employer] POLLUTION ANALYST PAIN CONTROL Last Admin: 06/16/20 03:06 Dose: 15 mg Documented by: Dextrose/Lactated Ringer's (Dextrose 5%-Lactated Ringers) 1,000 mls @ 200 mls/hr IV ASDIRECTED [facility] Last Admin: 06/12/20 04:15 Dose: 100 mls/hr Documented by: Aztreonam 1 gm/ Sodium (Chloride) 50 mls @ 100 mls/hr IV Q8H [facility] Last Admin: 06/12/20 05:56 Dose: 100 mls/hr Documented by: Lactated Ringer's (Ringers, Lactated) 500 mls @ 500 mls/hr IV BOLUS ONE Stop: 06/12/20 05:54 Last Admin: 06/12/20 04:57 Dose: 500 mls/hr Documented by: Lactated Ringer's (Ringers, Lactated) 1,000 mls @ 750 mls/hr IV ONETIME ONE Stop: 06/12/20 08:03 Last Admin: 06/12/20 07:24 Dose: 750 mls/hr Documented by: Norepinephrine Bitartrate 8 mg (/ Dextrose/Water) 258 mls @ 3.87 mls/hr IV TITRATE [facility]; Protocol Last Infusion: 06/12/20 15:19 Dose: 0 mcg/min, 0 mls/hr Documented by: Dextrose/Water (Dextrose 5% In Water) Confirm Administered Dose 250 mls @ as directed .ROUTE .STK-MED ONE Stop: 06/12/20 06:47 Last Admin: 06/12/20 17:24 Dose: Not Given Documented by: Piperacillin/Tazobactam/ (Dextrose 3.375 gm/ Premix) 50 mls @ 100 mls/hr IV Q6H [facility] Last Admin: 06/12/20 07:36 Dose: 100 mls/hr Documented by: Aztreonam 1 gm/ Sodium (Chloride) 50 mls @ 100 mls/hr IV Q8H [facility] Last Admin: 06/14/20 05:05 Dose: 100 mls/hr Documented by: Sodium Chloride (Normal Saline) Confirm Administered Dose 10 mls @ as directed .ROUTE .STK-MED ONE Stop: 06/12/20 13:03 Heparin Sodium (Porcine) 5,000 (units/ Sodium Chloride) 501 mls @ 1 mls/hr IV ASDIRECTED [facility] Last Admin: 06/12/20 16:27 Dose: 1 mls/hr Documented by: Heparin Sodium (Porcine) 5,000 (units/ Sodium Chloride) 501 mls @ 1 mls/hr IV ASDIRECTED [facility] Last Admin: 06/12/20 16:28 Dose: 1 mls/hr Documented by: Dextrose/Ringer's (Dextrose 5%-Ringers) Confirm Administered Dose 1,000 mls @ as directed .ROUTE .STK-MED ONE Stop: 06/12/20 13:52 Dextrose/Lactated Ringer's (Dextrose 5%-Lactated Ringers) 1,000 mls @ 150 mls/hr IV ASDIRECTED [facility] Stop: 06/13/20 11:59 Last Admin: 06/13/20 06:45 Dose: 150 mls/hr Documented by: Multivitamins/Minerals 10 ml/Thiamine HCl 100 mg/ Zinc 1 ml / Dextrose/Lactated Ringer's 1,012 mls @ 150 mls/hr IV ONETIME ONE Stop: 06/12/20 22:44 Last Admin: 06/12/20 16:55 Dose: 150 mls/hr Documented by: Magnesium Sulfate (Magnesium Sulfate In Water 2 Gm/50 Ml) 2 gm in 50 mls @ 25 mls/hr IV Q6HR [facility] Stop: 06/15/20 11:59 Last Admin: 06/15/20 10:22 Dose: 25 mls/hr Documented by: Lactated Ringer's (Ringers, Lactated) 500 mls @ 500 mls/hr IV ONETIME ONE Stop: 06/13/20 06:59 Last Admin: 06/13/20 06:00 Dose: 500 mls/hr Documented by: Albumin Human (Albumin 25%) 25 gm in 100 mls @ 25 mls/hr IV Q24H [facility] Stop: 06/16/20 13:59 Last Admin: 06/16/20 09:54 Dose: 25 mls/hr Documented by: Multivitamins/Minerals 10 ml/Zinc 1 ml/ Amino Acids/Dextrose 1,011 mls @ 100 mls/hr IV .BY DURATION [facility] Last Admin: 06/15/20 10:12 Dose: 100 mls/hr Documented by: Amino Acids/Dextrose (Clinimix 5/15) 1,000 mls @ 100 mls/hr IV .BY DURATION [facility] Last Admin: 06/14/20 21:35 Dose: 100 mls/hr Documented by: Dextrose/Lactated Ringer's (Dextrose 5%-Lactated Ringers) 1,000 mls @ 50 mls/hr IV ASDIRECTED [facility] Last Admin: 06/15/20 14:48 Dose: 50 mls/hr Documented by: Calcium Gluconate 2 gm/ Sodium (Chloride) 120 mls @ 100 mls/hr IV ONETIME ONE Stop: 06/13/20 12:11 Last Admin: 06/13/20 12:30 Dose: 100 mls/hr Documented by: Calcium Gluconate 2 gm/ Sodium (Chloride) 120 mls @ 100 mls/hr IV ONETIME ONE Stop: 06/13/20 19:01 Last Admin: 06/13/20 18:05 Dose: 100 mls/hr Documented by: Lactated Ringer's (Ringers, Lactated) 500 mls @ 1,000 mls/hr IV ASDIRECTED [facility] Last Admin: 06/14/20 02:25 Dose: 1,000 mls/hr Documented by: Albumin Human (Albumin 25%) 25 gm in 100 mls @ 25 mls/hr IV Q24H [facility] Stop: 06/16/20 17:59 Last Admin: 06/16/20 13:34 Dose: 25 mls/hr Documented by: Ciprofloxacin/Dextrose 400 mg/ (Premix) 200 mls @ 200 mls/hr IV Q12H [facility] Stop: 06/14/20 18:00 Last Admin: 06/14/20 15:58 Dose: 200 mls/hr Documented by: Ciprofloxacin/Dextrose 400 mg/ (Premix) 200 mls @ 200 mls/hr IV Q24H [facility] Last Admin: 06/18/20 17:19 Dose: 200 mls/hr Documented by: Potassium Acetate 40 meq/ (Sodium Chloride) 120 mls @ 30 mls/hr IV ONETIME ONE Stop: 06/15/20 12:59 Last Admin: 06/15/20 08:46 Dose: 30 mls/hr Documented by: Multivitamins/Minerals 10 ml/Zinc 1 ml/ Amino Acids/Dextrose 1,011 mls @ 100 mls/hr IV .BY DURATION [facility] Amino Acids/Dextrose (Clinimix 5/15) 1,000 mls @ 100 mls/hr IV .BY DURATION [facility] Multivitamins/Minerals 10 ml/Zinc 1 ml/ Amino Ac/Electrol/Dextrose/Calcium 2,011 mls @ 100 mls/hr IV .BY DURATION [facility] Last Admin: 06/16/20 16:48 Dose: 100 mls/hr Documented by: Amino Ac/Electrol/Dextrose/Calcium (Clinimix E 10/06) 2,000 mls @ 100 mls/hr IV .BY DURATION [place] Desmopressin Acetate 24 mcg/ (Sodium Chloride) 56 mls @ 200 mls/hr IV ONETIME ONE Stop: 06/19/20 09:16 Last Admin: 06/19/20 09:15 Dose: 200 mls/hr Documented by: Lidocaine/Epinephrine (Xylocaine 1% With Epinephrine 1:100,000) Confirm Administered Dose 50 ml .ROUTE .STK-MED ONE Stop: 06/12/20 13:00 Meropenem (Merrem) Confirm Administered Dose 500 mg .ROUTE .STK-MED ONE Stop: 06/12/20 13:03 Naloxone HCl (Narcan) 0.1 mg IV ASDIRECTED PRN PRN Reason: decreased respiratory rate Neostigmine Methylsulfate (Neostigmine) Confirm Administered Dose 5 mg .ROUTE .STK-MED ONE Stop: 06/12/20 10:46 Norepinephrine Bitartrate (Levophed) Confirm Administered Dose 8 mg .ROUTE .STK- MED ONE Stop: 06/12/20 06:46 Last Admin: 06/12/20 17:46 Dose: Not Given Documented by: Ondansetron HCl (Zofran) Confirm Administered Dose 4 mg .ROUTE .STK-MED ONE Stop: 06/12/20 10:46 Potassium Chloride (Klor-Con M20) 40 meq PO ONETIME ONE Stop: 06/17/20 09:01 Last Admin: 06/17/20 08:44 Dose: 40 meq Documented by: Propofol (Diprivan 20 Ml) Confirm Administered Dose 200 mg .ROUTE .STK-MED ONE Stop: 06/12/20 10:46 Rocuronium [place] (Zemuron) Confirm Administered Dose 50 mg .ROUTE .STK-MED ONE Stop: 06/12/20 10:46 Sodium Polystyrene Sulfonate (Kayexalate) 30 gm PO ONETIME ONE Stop: 06/13/20 08:46 Last Admin: 06/13/20 08:55 Dose: 30 gm Documented by: Succinylcholine Chloride (Quelicin) Confirm Administered Dose 200 mg .ROUTE .STK-MED ONE Stop: 06/12/20 10:46 Tamsulosin HCl (Flomax) 0.4 mg PO NOW ONE Stop: 06/15/20 07:31 Last Admin: 06/15/20 08:40 Dose: 0.4 mg Documented by: - Exam Quality Assessment: No: Supplemental Oxygen General: Alert, Oriented, Cooperative, No Acute Distress HEENT: Other (no bleeding from left nare after rhino rocket removed ) Lungs: Normal Respiratory Effort GI/Abdominal Exam: Soft, No Distention Extremities: Pedal Edema Psy/Mental Status: Alert, Normal Affect Sepsis Event Note - Evaluation Sepsis Screening Result: No Definite Risk - Focused Exam Vital Signs: Vital Signs Temp Pulse Resp BP Pulse Ox 06/19/20 10:15 2.9 C L 66 18 139/67 97 06/19/20 07:00 37.1 C 68 18 140/77 96 06/19/20 03:00 36.3 C 64 20 159/76 H 97 - Problem List Review Problem List Initiated/Reviewed/Updated: Yes - Assessment Assessment:: ASSESSMENT AND PLAN - Plan Plan:: ASSESSMENT AND PLAN - Acute cholecystitis with septic shock-status post cholecystectomy with resolution of sepsis. Steadily improving. Cultures grew out Pseudomonas and VRE. Tolerating current antibiotics. Diarrhea is better. -Postoperative care as per Dr. Viveros -Continue linezolid for VRE -Continue Pip/Tazo -symptomatic management of pain and nausea Stage IV chronic kidney disease-creatinine stable and urine output adequate. Volume status appropriate. -Hold off on diuresis -Labs in the morning Persistent epistaxis-Rhino Rocket removed today. No bleeding noted so far. Multiple myeloma-complicated by bony destruction and kidney disease. Status post Prashanth-en-Y gastric bypass surgery Maintenance issues - - DVT prophylaxis -mechanical - GI prophylaxis -PPI - Nutrition -bariatric diet Disposition -I would anticipate discharge home possibly with home care after the hospital stay Amilcar Berry M.D.
[2020-06-19] MEDS: Lactated Ringers 1,000 ML IV SCH (20:04)
[2020-06-19] MEDS: Tamsulosin 0.4 MG Cap.ER PO SCH (21:54)
[2020-06-20] MEDS: Piperacillin/Tazobactam/Dext 2.25 GM in Premix Bag 1 BAG IV SCH ×4 (02:58→19:34)
[2020-06-20] MEDS: Linezolid 600 MG in Premix Bag 1 BAG IV SCH ×2 (04:27→16:13)
[2020-06-20] MEDS: Acetaminophen 500 MG Tab PO SCH (04:28)
[2020-06-20] MEDS ORDERED: Meropenem 500 MG SDV ONE (06:42)
[2020-06-20] MEDS ORDERED: Bupivacaine 0.5% 50 ML MDV ONE (06:42)
[2020-06-20] MEDS ORDERED: Lidocaine 1% with EPINEPHrine 1:100,000 50 ML MDV ONE (06:43)
[2020-06-20] MEDS ORDERED: Midazolam 1 MG/ML 2 ML SDV ONE (06:56)
[2020-06-20] MEDS ORDERED: fentaNYL 100 MCG/2 ML SDV ONE (06:56)
[2020-06-20] MEDS ORDERED: Propofol 200 MG/20 ML SDV ONE (06:56)
[2020-06-20] MEDS ORDERED: Neomycin/Polymyxin B Bladder Irrigation 1 ML Amp ONE (07:07)
[2020-06-20] MEDS ORDERED: Acetaminophen 500 MG Tab PO PRN (08:18)
[2020-06-20] MEDS: Megestrol Susp 40 MG/ML ML (240 ML Bottle) PO SCH ×2 (08:22→21:29)
[2020-06-20] MEDS: Sertraline 25 MG Tab PO SCH (08:22)
[2020-06-20] MEDS: Lactobacillus Rhamnosus GG (Probiotic) Cap PO SCH ×2 (08:22→21:29)
[2020-06-20] MEDS ORDERED: Furosemide 20 MG/2 ML VIAL IV ONE (09:00)
--- NOTE | 2020-06-20 09:37 | PN ---
DATE OF SERVICE: 06/20/2020 SUBJECTIVE: Hill is n.p.o. He will be having some omentum removed from his SIDNEY drain site. Vital signs have been stable. He has had no further bleeding from his nose. LABORATORY DATA: Hemoglobin up to 9.7, platelets 65. Potassium is 3.1. NBNP is 13,008. REVIEW OF SYSTEMS: Remainder of review of systems negative for any pertinent positives and negatives. OBJECTIVE: GENERAL: Hill Gudino is a 69-year-old male. He is alert, orientated. VITAL SIGNS: TPR is 97, 54, 14, blood pressure 146/74. HEENT: Negative. NECK: Supple. HEART: Regular rate and rhythm. LUNGS: Clear. ABDOMEN: Omentum about 2 inches from his SIDNEY drain site. Abdominal binder has been on. EXTREMITIES: Without peripheral edema. ASSESSMENT: Diagnostic laparoscopy with cholecystectomy, drainage of pericolonic abscess, removal of peritoneal nodule, transverse colon on 06/12/2020. Surgeon: Karri Viveros MD. POSTOPERATIVE DIAGNOSES: 1. Acute cholecystitis, peritoneal nodule. 2. Status post septic shock. 3. Stage 4 chronic kidney disease. 4. Persistent epistaxis, Rhino Rocket placed right side, 06/17/2020. PLAN: 1. Orders will be written after procedure today. He will be given desmopressin 24 mcg IV today and 1 dose tomorrow, potassium 60 mEq, and Lasix. 2. Check CBC, CMP, mag, phos, and BNP in a.m. 3. We will evaluate p.r.n. or in a.m. 4. The vasopressin and KCl 60 mEq and Lasix labs to be ordered. Luciana Gaitan PA-C /[id number]
[2020-06-20] MEDS: Potassium Chloride 20 MEQ Tab.ER PO SCH ×3 (09:53→16:13)
--- NOTE | 2020-06-20 13:41 | PCM.PN ---
- General Info Date of Service: 06/20/20 Subjective Update: No acute events overnight. Patient is having bowel movements. He does not have much in the way of abdominal pain but has very mild nausea. No return of his epistaxis. No fevers. Kidney function stable. He did have a small piece of omentum which prolapsed through one of his abdominal incisions well his SIDNEY drain was being removed yesterday and this required surgical repair today. Functional Status: Reports: Pain Controlled, Tolerating Diet - Review of Systems General: Denies: Fever Gastrointestinal: Reports: Abdominal Pain (mild) - Patient Data Vitals - Most Recent: Last Vital Signs Temp 36.6 C 06/20/20 09:15 Pulse 68 06/20/20 09:15 Resp 16 06/20/20 09:15 BP 157/66 H 06/20/20 09:15 Pulse Ox 95 06/20/20 09:15 Weight - Most Recent: 80.5 kg I&O - Last 24 Hours: Intake & Output 06/19/20 06/20/20 06/20/20 22:59 06:59 14:59 Intake Total 500 1090 Output Total 1100 1400 300 Balance -600 -310 -300 Lab Results Last 24 Hours: Laboratory Results - last 24 hr 06/17/20 06/20/20 06/20/20 Range/Units 08:10 04:40 04:40 WBC 9.2 (4.5-11.0) K/uL RBC 3.28 L (4.30-5.90) M/uL Hgb 9.7 L (12.0-15.0) g/dL Hct 28.5 L (40.0-54.0) % MCV 87 (80-98) fL MCH 30 (27-31) pg MCHC 34 (32-36) % Plt Count 65 L (150-400) K/uL Sodium 140 (140-148) mmol/L Potassium 3.1 L (3.6-5.2) mmol/L Chloride 101 (100-108) mmol/L Carbon Dioxide 25 (21-32) mmol/L Anion Gap 17.1 H (5.0-14.0) mmol/L BUN 86 H* (7-18) mg/dL Creatinine 2.4 H (0.8-1.3) mg/dL Est Cr Clr Drug Dosing 26.21 mL/min Estimated GFR (MDRD) 27 L (>60) Glucose 98 (74-106) mg/dL Calcium 7.5 L (8.5-10.1) mg/dL Phosphorus 5.6 H (2.5-4.9) mg/dL Magnesium 2.8 H (1.8-2.4) mg/dL Total Bilirubin 1.7 H (0.2-1.0) mg/dL AST 22 (15-37) U/L ALT 34 (12-78) U/L Alkaline Phosphatase 632 H (46-116) U/L NT-Pro-B Natriuret Pep 58467 H (5-125) pg/mL Total Protein 4.1 L (6.4-8.2) g/dL Albumin 2.0 L (3.4-5.0) g/dL Globulin 2.1 L (2.3-3.5) g/dL Albumin/Globulin Ratio 1.0 L (1.2-2.2) Crossmatch See Detail Med Orders - Current: Current Medications Acetaminophen (Tylenol Extra Strength) 1,000 mg PO Q6HR PRN PRN Reason: FEVER/PAIN Diphenhydramine HCl (Benadryl) 50 mg IVPUSH BEDTIME PRN PRN Reason: Insomnia Last Admin: 06/18/20 03:31 Dose: 50 mg Documented by: Diphenhydramine HCl (Benadryl) 50 mg PO BEDTIME PRN PRN Reason: Insomnia Diphenoxylate HCl/Atropine (Lomotil 0.025-2.5 Mg) 1 tab PO Q6H PRN PRN Reason: Diarrhea Last Admin: 06/17/20 19:25 Dose: 1 tab Documented by: Heparin Sodium (Porcine) (Heparin Lock Flush 100 Units/Ml) 500 units FLUSH ASDIRECTED PRN PRN Reason: Other Last Admin: 06/20/20 04:41 Dose: 500 units Documented by: Hydroxyzine HCl (Vistaril) 100 mg IM Q4H PRN PRN Reason: pain Piperacillin/Tazobactam/ (Dextrose 2.25 gm/ Premix) 50 mls @ 100 mls/hr IV Q6H [facility] Last Admin: 06/20/20 13:20 Dose: 100 mls/hr Documented by: Linezolid 600 mg/ Premix 300 mls @ 300 mls/hr IV Q12H [facility] Last Admin: 06/20/20 04:27 Dose: 300 mls/hr Documented by: Lactated Ringer's (Ringers, Lactated) 1,000 mls @ 0 mls/hr IV ASDIRECTED [facility] Last Admin: 06/19/20 20:04 Dose: 25 mls/hr Documented by: Desmopressin Acetate 24 mcg/ (Sodium Chloride) 56 mls @ 200 mls/hr IV Q24H [facility] Stop: 06/21/20 09:47 Last Admin: 06/20/20 09:59 Dose: 200 mls/hr Documented by: Lactobacillus Rhamnosus (Culturelle) 1 cap PO BID [facility] Last Admin: 06/20/20 08:22 Dose: 1 cap Documented by: Lorazepam (Ativan) 0.5 mg PO Q4H PRN PRN Reason: Anxiety Megestrol Acetate (Megace 40 Mg/Ml Susp) 200 mg PO BID [facility] Last Admin: 06/20/20 08:22 Dose: 200 mg Documented by: Oxycodone HCl (Oxycodone) 5 mg PO Q4H PRN PRN Reason: Pain Potassium Chloride (Klor-Con M20) 20 meq PO TIDMEALS [facility] Stop: 06/20/20 17:01 Last Admin: 06/20/20 13:20 Dose: 20 meq Documented by: Sertraline HCl (Zoloft) 75 mg PO DAILY [facility] Last Admin: 06/20/20 08:22 Dose: 75 mg Documented by: Tamsulosin HCl (Flomax) 0.4 mg PO BEDTIME [facility] Last Admin: 06/19/20 21:54 Dose: 0.4 mg Documented by: Discontinued Medications Acetaminophen (Tylenol Extra Strength) 1,000 mg PO Q6HR [facility] Last Admin: 06/20/20 04:28 Dose: Not Given Documented by: Bisacodyl (Dulcolax) 10 mg PO BID [facility] Last Admin: 06/15/20 20:51 Dose: 10 mg Documented by: Bupivacaine HCl (Marcaine 0.5%) Confirm Administered Dose 50 ml .ROUTE .STK-MED ONE Stop: 06/12/20 13:00 Bupivacaine HCl (Marcaine 0.5%) Confirm Administered Dose 50 ml .ROUTE .STK-MED ONE Stop: 06/20/20 06:43 Last Admin: 06/20/20 07:23 Dose: 1 ml Documented by: Ropivacaine 34 ml/Dexamethasone 8 mg/Epinephrine HCl 0.4 mg/ Sodium Chloride 43.6 ml 0 ml NERVRT ASDIRECTED [facility] Last Admin: 06/12/20 13:30 Dose: 80 syringe Documented by: Dexamethasone (Decadron) Confirm Administered Dose 4 mg .ROUTE .STK-MED ONE Stop: 06/12/20 10:46 Docusate Sodium (Colace) 100 mg PO BID [facility] Last Admin: 06/15/20 20:51 Dose: Not Given Documented by: Ephedrine Sulfate (Ephedrine Sulfate) Confirm Administered Dose 50 mg .ROUTE .STK-MED ONE Stop: 06/12/20 13:02 Fentanyl (Sublimaze) Confirm Administered Dose 250 mcg .ROUTE .STK-MED ONE Stop: 06/12/20 10:48 Fentanyl (Sublimaze) Confirm Administered Dose 100 mcg .ROUTE .STK-MED ONE Stop: 06/20/20 06:57 Furosemide (Lasix) 10 mg IVPUSH ONETIME ONE Stop: 06/13/20 10:01 Last Admin: 06/13/20 09:37 Dose: 10 mg Documented by: Furosemide (Lasix) 20 mg IVPUSH ONETIME ONE Stop: 06/13/20 17:31 Last Admin: 06/13/20 17:54 Dose: 20 mg Documented by: Furosemide (Lasix) 10 mg IVPUSH ONETIME ONE Stop: 06/14/20 04:34 Last Admin: 06/14/20 05:05 Dose: 10 mg Documented by: Furosemide (Lasix) 40 mg IVPUSH ONETIME ONE Stop: 06/14/20 10:01 Last Admin: 06/14/20 11:46 Dose: 40 mg Documented by: Furosemide (Lasix) 40 mg IVPUSH ONETIME ONE Stop: 06/15/20 09:01 Last Admin: 06/15/20 08:40 Dose: 40 mg Documented by: Furosemide (Lasix) 40 mg IVPUSH BID [facility] Last Admin: 06/15/20 20:52 Dose: 40 mg Documented by: Furosemide (Lasix) 40 mg IVPUSH ONETIME ONE Stop: 06/16/20 03:33 Last Admin: 06/16/20 03:41 Dose: 40 mg Documented by: Furosemide (Lasix) 40 mg IVPUSH BID@0800,1600 [facility] Last Admin: 06/16/20 15:42 Dose: 40 mg Documented by: Furosemide (Lasix) 20 mg IVPUSH Q9H [facility] Stop: 06/17/20 18:01 Last Admin: 06/17/20 17:49 Dose: 20 mg Documented by: Furosemide (Lasix) 20 mg IV ONETIME ONE Stop: 06/20/20 09:01 Last Admin: 06/20/20 09:53 Dose: 20 mg Documented by: Glycopyrrolate (Robinul) Confirm Administered Dose 1 mg .ROUTE .STK-MED ONE Stop: 06/12/20 10:46 Heparin Sodium (Porcine) (Heparin Lock Flush 100 Units/Ml) Confirm Administered Dose 1,000 units .ROUTE .STK-MED ONE Stop: 06/12/20 10:40 Hydromorphone HCl (Dilaudid Ore Dryer 15 Mg In Ns 30 Ml) 0 mg IV ASDIRECTED PRN; Protocol PRN Reason: DIRECTOR POST PAIN CONTROL Last Admin: 06/16/20 03:06 Dose: 15 mg Documented by: Dextrose/Lactated Ringer's (Dextrose 5%-Lactated Ringers) 1,000 mls @ 200 mls/hr IV ASDIRECTED [facility] Last Admin: 06/12/20 04:15 Dose: 100 mls/hr Documented by: Aztreonam 1 gm/ Sodium (Chloride) 50 mls @ 100 mls/hr IV Q8H [facility] Last Admin: 06/12/20 05:56 Dose: 100 mls/hr Documented by: Lactated Ringer's (Ringers, Lactated) 500 mls @ 500 mls/hr IV BOLUS ONE Stop: 06/12/20 05:54 Last Admin: 06/12/20 04:57 Dose: 500 mls/hr Documented by: Lactated Ringer's (Ringers, Lactated) 1,000 mls @ 750 mls/hr IV ONETIME ONE Stop: 06/12/20 08:03 Last Admin: 06/12/20 07:24 Dose: 750 mls/hr Documented by: Norepinephrine Bitartrate 8 mg (/ Dextrose/Water) 258 mls @ 3.87 mls/hr IV TITRATE [facility]; Protocol Last Infusion: 06/12/20 15:19 Dose: 0 mcg/min, 0 mls/hr Documented by: Dextrose/Water (Dextrose 5% In Water) Confirm Administered Dose 250 mls @ as directed .ROUTE .[facility] ONE Stop: 06/12/20 06:47 Last Admin: 06/12/20 17:24 Dose: Not Given Documented by: Piperacillin/Tazobactam/ (Dextrose 3.375 gm/ Premix) 50 mls @ 100 mls/hr IV Q6H [facility] Last Admin: 06/12/20 07:36 Dose: 100 mls/hr Documented by: Aztreonam 1 gm/ Sodium (Chloride) 50 mls @ 100 mls/hr IV Q8H [facility] Last Admin: 06/14/20 05:05 Dose: 100 mls/hr Documented by: Sodium Chloride (Normal Saline) Confirm Administered Dose 10 mls @ as directed .ROUTE .[facility] ONE Stop: 06/12/20 13:03 Heparin Sodium (Porcine) 5,000 (units/ Sodium Chloride) 501 mls @ 1 mls/hr IV ASDIRECTED [facility] Last Admin: 06/12/20 16:27 Dose: 1 mls/hr Documented by: Heparin Sodium (Porcine) 5,000 (units/ Sodium Chloride) 501 mls @ 1 mls/hr IV ASDIRECTED [facility] Last Admin: 06/12/20 16:28 Dose: 1 mls/hr Documented by: Dextrose/Ringer's (Dextrose 5%-Ringers) Confirm Administered Dose 1,000 mls @ as directed .ROUTE .[facility] ONE Stop: 06/12/20 13:52 Dextrose/Lactated Ringer's (Dextrose 5%-Lactated Ringers) 1,000 mls @ 150 mls/hr IV ASDIRECTED [facility] Stop: 06/13/20 11:59 Last Admin: 06/13/20 06:45 Dose: 150 mls/hr Documented by: Multivitamins/Minerals 10 ml/Thiamine HCl 100 mg/ Zinc 1 ml / Dextrose/Lactated Ringer's 1,012 mls @ 150 mls/hr IV ONETIME ONE Stop: 06/12/20 22:44 Last Admin: 06/12/20 16:55 Dose: 150 mls/hr Documented by: Magnesium Sulfate (Magnesium Sulfate In Water 2 Gm/50 Ml) 2 gm in 50 mls @ 25 mls/hr IV Q6HR [facility] Stop: 06/15/20 11:59 Last Admin: 06/15/20 10:22 Dose: 25 mls/hr Documented by: Lactated Ringer's (Ringers, Lactated) 500 mls @ 500 mls/hr IV ONETIME ONE Stop: 06/13/20 06:59 Last Admin: 06/13/20 06:00 Dose: 500 mls/hr Documented by: Albumin Human (Albumin 25%) 25 gm in 100 mls @ 25 mls/hr IV Q24H [facility] Stop: 06/16/20 13:59 Last Admin: 06/16/20 09:54 Dose: 25 mls/hr Documented by: Multivitamins/Minerals 10 ml/Zinc 1 ml/ Amino Acids/Dextrose 1,011 mls @ 100 mls/hr IV .BY DURATION [facility] Last Admin: 06/15/20 10:12 Dose: 100 mls/hr Documented by: Amino Acids/Dextrose (Clinimix 5/15) 1,000 mls @ 100 mls/hr IV .BY DURATION [facility] Last Admin: 06/14/20 21:35 Dose: 100 mls/hr Documented by: Dextrose/Lactated Ringer's (Dextrose 5%-Lactated Ringers) 1,000 mls @ 50 mls/hr IV ASDIRECTED [facility] Last Admin: 06/15/20 14:48 Dose: 50 mls/hr Documented by: Calcium Gluconate 2 gm/ Sodium (Chloride) 120 mls @ 100 mls/hr IV ONETIME ONE Stop: 06/13/20 12:11 Last Admin: 06/13/20 12:30 Dose: 100 mls/hr Documented by: Calcium Gluconate 2 gm/ Sodium (Chloride) 120 mls @ 100 mls/hr IV ONETIME ONE Stop: 06/13/20 19:01 Last Admin: 06/13/20 18:05 Dose: 100 mls/hr Documented by: Lactated Ringer's (Ringers, Lactated) 500 mls @ 1,000 mls/hr IV ASDIRECTED [facility] Last Admin: 06/14/20 02:25 Dose: 1,000 mls/hr Documented by: Albumin Human (Albumin 25%) 25 gm in 100 mls @ 25 mls/hr IV Q24H [facility] Stop: 06/16/20 17:59 Last Admin: 06/16/20 13:34 Dose: 25 mls/hr Documented by: Ciprofloxacin/Dextrose 400 mg/ (Premix) 200 mls @ 200 mls/hr IV Q12H [facility] Stop: 06/14/20 18:00 Last Admin: 06/14/20 15:58 Dose: 200 mls/hr Documented by: Ciprofloxacin/Dextrose 400 mg/ (Premix) 200 mls @ 200 mls/hr IV Q24H [facility] Last Admin: 06/18/20 17:19 Dose: 200 mls/hr Documented by: Potassium Acetate 40 meq/ (Sodium Chloride) 120 mls @ 30 mls/hr IV ONETIME ONE Stop: 06/15/20 12:59 Last Admin: 06/15/20 08:46 Dose: 30 mls/hr Documented by: Multivitamins/Minerals 10 ml/Zinc 1 ml/ Amino Acids/Dextrose 1,011 mls @ 100 mls/hr IV .BY DURATION [facility] Amino Acids/Dextrose (Clinimix 5/15) 1,000 mls @ 100 mls/hr IV .BY DURATION [facility] Multivitamins/Minerals 10 ml/Zinc 1 ml/ Amino Ac/Electrol/Dextrose/Calcium 2,011 mls @ 100 mls/hr IV .BY DURATION [facility] Last Admin: 06/16/20 16:48 Dose: 100 mls/hr Documented by: Amino Ac/Electrol/Dextrose/Calcium (Clinimix E 5/15) 2,000 mls @ 100 mls/hr IV .BY DURATION [facility] Desmopressin Acetate 24 mcg/ (Sodium Chloride) 56 mls @ 200 mls/hr IV ONETIME ONE Stop: 06/19/20 09:16 Last Admin: 06/19/20 09:15 Dose: 200 mls/hr Documented by: Lidocaine/Epinephrine (Xylocaine 1% With Epinephrine 1:100,000) Confirm Administered Dose 50 ml .ROUTE .STK-MED ONE Stop: 06/12/20 13:00 Lidocaine/Epinephrine (Xylocaine 1% With Epinephrine 1:100,000) Confirm Administered Dose 50 ml .ROUTE .STK-MED ONE Stop: 06/20/20 06:44 Last Admin: 06/20/20 07:23 Dose: 1 ml Documented by: Meropenem (Merrem) Confirm Administered Dose 500 mg .ROUTE .STK-MED ONE Stop: 06/12/20 13:03 Meropenem (Merrem) Confirm Administered Dose 500 mg .ROUTE .STK-MED ONE Stop: 06/20/20 06:43 Midazolam HCl (Versed 1 Mg/Ml) Confirm Administered Dose 2 mg .ROUTE .STK-MED ONE Stop: 06/20/20 06:57 Naloxone HCl (Narcan) 0.1 mg IV ASDIRECTED PRN PRN Reason: decreased respiratory rate Neomycin/Polymyxin (Neosporin Gu Irrigant) Confirm Administered Dose 1 ml .ROUTE .STK-MED ONE Stop: 06/20/20 07:08 Last Admin: 06/20/20 07:16 Dose: 1 ml Documented by: Neostigmine Methylsulfate (Neostigmine) Confirm Administered Dose 5 mg .ROUTE .STK-MED ONE Stop: 06/12/20 10:46 Norepinephrine Bitartrate (Levophed) Confirm Administered Dose 8 mg .ROUTE .STK- MED ONE Stop: 06/12/20 06:46 Last Admin: 06/12/20 17:46 Dose: Not Given Documented by: Ondansetron HCl (Zofran) Confirm Administered Dose 4 mg .ROUTE .STK-MED ONE Stop: 06/12/20 10:46 Oxymetazoline HCl (Nasal Decongestant [place]) 0 ml NASLF BID [facility] Stop: 06/19/20 21:01 Last Admin: 06/19/20 21:54 Dose: Not Given Documented by: Potassium Chloride (Klor-Con M20) 40 meq PO ONETIME ONE Stop: 06/17/20 09:01 Last Admin: 06/17/20 08:44 Dose: 40 meq Documented by: Propofol (Diprivan 20 Ml) Confirm Administered Dose 200 mg .ROUTE .STK-MED ONE Stop: 06/12/20 10:46 Propofol (Diprivan 20 Ml) Confirm Administered Dose 200 mg .ROUTE .STK-MED ONE Stop: 06/20/20 06:57 Rocuronium [place] (Zemuron) Confirm Administered Dose 50 mg .ROUTE .STK-MED ONE Stop: 06/12/20 10:46 Sodium Polystyrene Sulfonate (Kayexalate) 30 gm PO ONETIME ONE Stop: 06/13/20 08:46 Last Admin: 06/13/20 08:55 Dose: 30 gm Documented by: Succinylcholine Chloride (Quelicin) Confirm Administered Dose 200 mg .ROUTE .STK-MED ONE Stop: 06/12/20 10:46 Tamsulosin HCl (Flomax) 0.4 mg PO NOW ONE Stop: 06/15/20 07:31 Last Admin: 06/15/20 08:40 Dose: 0.4 mg Documented by: - Exam Quality Assessment: No: Supplemental Oxygen General: Alert, Oriented, Cooperative, No Acute Distress Lungs: Normal Respiratory Effort GI/Abdominal Exam: Soft, No Distention Extremities: Pedal Edema. No: Increased Warmth Skin: Warm, Dry Psy/Mental Status: Alert, Normal Affect Sepsis Event Note - Evaluation Sepsis Screening Result: No Definite Risk - Focused Exam Vital Signs: Vital Signs Temp Pulse Resp BP Pulse Ox 06/20/20 09:15 36.6 C 68 16 157/66 H 95 06/20/20 08:45 67 16 147/74 H 95 06/20/20 08:30 60 16 165/71 H 96 06/20/20 08:14 36.1 C 56 L 16 143/74 H 97 06/20/20 07:55 36.1 C 54 L 14 146/74 H 96 06/20/20 07:50 54 L 14 131/71 96 06/20/20 07:45 55 L 14 134/70 99 06/20/20 07:40 55 L 14 133/71 98 06/20/20 07:35 36.1 C 58 L 13 123/70 98 06/20/20 03:34 36.8 C 61 16 142/72 H 93 L - Problem List Review Problem List Initiated/Reviewed/Updated: Yes - Assessment Assessment:: ASSESSMENT AND PLAN - Plan Plan:: ASSESSMENT AND PLAN - Acute cholecystitis with septic shock-status post cholecystectomy with resolution of sepsis. Steadily improving. Cultures grew out Pseudomonas and VRE. Tolerating current antibiotics. Diarrhea is better. -Postoperative care as per Dr. Viveros -Continue linezolid for VRE -Continue Pip/Tazo -symptomatic management of pain and nausea Stage IV chronic kidney disease-Volume status appropriate, creatinine and BUN elevated. -Hold off on diuresis -Labs in the morning Persistent epistaxis-Rhino Rocket removed yesterday with no recurrence. Multiple myeloma-complicated by bony destruction and kidney disease. Status post Prashanth-en-Y gastric bypass surgery Maintenance issues - - DVT prophylaxis -mechanical - GI prophylaxis -PPI - Nutrition -bariatric diet Disposition -I would anticipate discharge home possibly with home care after the hospital stay, probably tomorrow if stable overnight Amilcar Berry M.D.
[2020-06-20] MEDS: oxyCODONE 5 MG Tab PO PRN (16:24)
[2020-06-20] MEDS: Tamsulosin 0.4 MG Cap.ER PO SCH (21:29)
[2020-06-21] MEDS: Piperacillin/Tazobactam/Dext 2.25 GM in Premix Bag 1 BAG IV SCH ×2 (03:26→07:22)
[2020-06-21] MEDS: Linezolid 600 MG in Premix Bag 1 BAG IV SCH (04:32)
[2020-06-21] MEDS ORDERED: Potassium Chloride 20 MEQ Tab.ER PO ONE (06:05)
[2020-06-21] MEDS ORDERED: SODIUM CHLORIDE 0.9% IV ONE (07:00)
[2020-06-21] MEDS ORDERED: POTASSIUM ACETATE IV ONE (07:00)
[2020-06-21] MEDS ORDERED: hydrOXYzine HCl 25 MG Tab PO PRN (07:01)
[2020-06-21] MEDS: Lactobacillus Rhamnosus GG (Probiotic) Cap PO SCH (08:12)
[2020-06-21] MEDS: Megestrol Susp 40 MG/ML ML (240 ML Bottle) PO SCH (08:12)
[2020-06-21] MEDS: Sertraline 25 MG Tab PO SCH (08:12)
--- NOTE | 2020-06-21 11:22 | DISCH ---
ADMISSION DIAGNOSES: 1. Septic shock secondary to cholecystitis. 2. Multiple myeloma. 3. Bone marrow transplant. 4. Chronic kidney disease. 5. Status post Prashanth-en-Y gastric bypass surgery. 6. Type 2 diabetes. 7. Unspecified surgical malabsorption. 8. B12 deficiency. 9. Vitamin D deficiency. 10.Renal insufficiency. 11.Obstructive sleep apnea. 12.History of spinal fusion. 13.Bone metastasis. DISCHARGE DIAGNOSES: 1. Diagnostic laparoscopy with cholecystectomy. 2. Drainage of pericolonic abscess. 3. Removal of peritoneal nodule on transverse colon. 4. Date of procedure: 06/12/2020. Surgeon: Karri Viveros MD. POSTOPERATIVE SURGICAL DIAGNOSES: 1. Acute cholecystitis, peritoneal nodule. 2. Status post septic shock. 3. Chronic kidney disease. 4. Persistent epistaxis, Rhino Rocket placement 06/17/2020 and removed on 06/20/2020. HISTORY: Hill Gudino was transferred via ambulance as a direct admission from the emergency department in [place] for cholecystitis. He developed sudden onset around 7 p.m. of severe mid epigastric and right upper quadrant abdominal pain shortly after eating. He presented to the emergency department in [place] and was transferred to [place] on 06/12/2020. Upon arrival, he was in septic shock, was transferred from the med/surg floor to ICU. PICC line was placed. He was started on Zosyn, aztreonam, norepinephrine, IV fluids. He was stabilized and able to have surgery later that afternoon, a laparoscopic cholecystectomy, was on 06/12/2020. He had no complications operatively. On postoperative day #1, temperature was 97 to 98, heart rates in the 70s, blood pressure was around 102/67. He was off the norepinephrine. Respiratory status, his PO2 was at 87, O2 sats at 96%. Metabolic acidosis was improving. Urine output was low. He received 1 unit of blood as well as 2 boluses of lactated Ringer's during the night. Creatinine was 2.4 and it did creep up to 2.6. His central venous pressure is beginning to elevate. Also, continued with the IV rate of 150. SIDNEY drainage was serous. Bilirubin 2.7. Liver function tests have improved. He is alert. Gallbladder cultures, gram-positive cocci and gram-negative rods. He is on piperacillin, Azactam, and Zyvox. White count was 15,000. On 06/14, vital signs were stable. Urine output was still low. He did have intermittent boluses and Lasix. Creatinine was stable at 2.6. He was started on a step 3 gastric bypass diet along with protein supplements. Kayexalate was given. Potassium was 4.4. He has been up, ambulating. On 06/15/2020, continues to gradually improve, started on TPN nutrition along with IV albumin, IV Lasix. Ann was out, and started on some Flomax. Cultures showed vancomycin- resistant Enterococcus and also grew out Pseudomonas, so Cipro IV was added to the piperacillin. On 06/16, vital signs were stable. Blood pressure was a little bit elevated, so Lasix for diuresis was continued, and he was started on a step-4 diet and was able to be transferred to the med/surg floor. On 06/17, vital signs were stable, afebrile. Creatinine was 2.5 and stable. TPN was turned down to 40 and then discontinued. Hemoglobin was 8.6. He was given 1 unit of packed red blood cells. He started having difficulty with a bloody nose. A Rhino packing was placed. On 06/18/2020, continued to improve. He was voiding every hour. Post bladder scan was done and it was negative. On 06/19/2020, SIDNEY drain was discontinued. He was given 1 dose of DDAVP and it was ordered for the next 3 days. The bleeding in his nose had stopped. He also was given 1 unit of packed red blood cells. Labs were continually monitored. On 06/20, he had surgery for omentum that had attached to the SIDNEY drain when it was removed and this had to be surgically repaired under IV sedation. Vital signs were monitored and potassium was replaced. On 06/21/2020, he was able to be discharged to home with home health care. LABORATORY DATA: On 06/21/2020, WBC 8.8, hemoglobin 9.8, hematocrit 29.1, platelets 85. Potassium was 2.8 and it was replaced. Prior to discharge, he had 40 mEq orally and 60 millimoles of potassium acetate IV, and given his last dose of DDAVP. Creatinine was 2.3, estimated GFR 28, glucose 146, calcium 7.8, phosphorus 5.9, magnesium 2.5, bilirubin 1.4. BNP 10,666. Protein 4.3, albumin 2. PHYSICAL EXAMINATION: GENERAL: Hill Gudino is a pleasant 69-year-old male. VITAL SIGNS: Height is 5 feet 6 inches, weight is 177 pounds, BMI 28. TPR 99.1, 63, 18, blood pressure 147/76. HEENT: Negative. NECK: Supple. HEART: Regular rate and rhythm. LUNGS: Clear. ABDOMEN: Steri-Strips on trocar incisions. They are healing well. He has a dressing over this suture where the omentum was repaired from the SIDNEY drain site. Abdominal binder is on. Central line was discontinued. EXTREMITIES: Reveal trace peripheral edema. DISPOSITION: Discharged to home. CONDITION: Stable and improving. FOLLOWUP: Appointment with Karri Viveros MD, on 06/27/2020 at 11 a.m. He is to come at 10:30 a.m. for CBC, CMP, magnesium, and phosphorus. HOME MEDICATIONS: 1. Hydroxyzine 25 mg take 1 to 2 every 4 hours p.r.n. pain, #40. 2. Tylenol Extra Strength 1000 mg every 6 hours p.r.n. pain. 3. He is to resume home medication of: a. Acyclovir 400 mg every evening. b. Calcium 2 chewable twice daily. c. Diflucan 1 tablet oral every morning. d. Vitamin B12 2 tablets oral every morning. e. Megestrol acetate 5 mL oral b.i.d. f. Flintstones vitamin 1 tablet in the morning. g. Protonix 1 tablet every morning. h. Zoloft 75 mg every morning. i. Carafate 10 mL oral every morning. j. Vitamin D 1 tablet oral every morning. DIET: Step 4 gastric bypass diet. Drink 8 to 10 glasses of water a day. ACTIVITY: No lifting over 10 pounds for 2 weeks. OTHER ACTIVITY: Walk 6 times daily inside your home. Driving: Do not drive for 1 week. Shower/bathing: May shower. DISCHARGE INSTRUCTIONS: Notify provider if any fever, increased pain, swelling, redness, drainage, nausea, or vomiting. Keep site clean and dry. Wear abdominal binder for 2 weeks and then as tolerated. Use incentive spirometer 10 times every hour while awake. /[id number]
[2020-06-21] MEDS: oxyCODONE 5 MG Tab PO PRN (12:52)
--- NOTE | 2020-06-25 16:18 | PN ---
DATE OF SERVICE: 06/20/2020 The patient underwent closure of the focal fascial dehiscence in the SIDNEY drain site along with excision of portion of the omentum. Today, we will be restarting diet. His platelet count is stable overnight of 65,000 and he did get a dose of DDAVP yesterday which seems to have stopped the nosebleeds. We will give him another dose today and another tomorrow in anticipation of probable discharge home tomorrow. We will give him some additional Lasix and potassium today and he will likely be as mentioned above ready for discharge home tomorrow. Karri Viveros MD /[id number]
--- NOTE | 2020-07-01 10:37 | OR ---
DATE OF PROCEDURE: 06/20/2020 SURGEON: Karri Viveros MD PREOPERATIVE DIAGNOSIS: Focal fascial dehiscence with herniated/prolapsed omentum. POSTOPERATIVE DIAGNOSIS: Focal fascial dehiscence with herniated/prolapsed omentum. OPERATIVE PROCEDURE: Exploration of right upper chest wall with, 1. Partial omentectomy (83741). 2. Closure of focal fascial dehiscence (34073). ANESTHESIA: Local plus IV sedation. INDICATION FOR PROCEDURE: A 69-year-old with an extremely thin abdominal wall who had a Devan-Jennings drain removed from the right upper quadrant yesterday through where would be an opening in the fascia, i.e., a focal fascial dehiscence at the drain site. A roughly 5 cm tongue of omentum came out following the drain and at this point, the plan is to proceed with excision of that prolapsed omentum and then closure of the fascial defect, i.e., focal fascial dehiscence. Potential risks of the procedure including further bleeding and infection were reviewed, and the patient wishes to proceed. DETAILS OF THE PROCEDURE: The patient was taken to the operating room and placed in the supine position. IV sedation was administered, after which the abdomen was prepped and draped. The area around the prolapsed omentum and fascial dehiscence was then anesthetized with 1% lidocaine mixed with Marcaine and the omentum was then clamped, divided, and the base suture ligated with 3-0 Vicryl stitch. The remaining omentum was then placed back into the intraperitoneal location. The wound was then irrigated with a neomycin-containing saline solution. The focal fascial dehiscence was then closed with a [id number] stitch of #1 Vicryl stitch. Over this then subcutaneous tissue approximated with 4-0 Vicryl stitch and the skin with some 4-0 Vicryl skin stitch. Dressing was applied. The patient was taken to the recovery room in satisfactory condition. There were no evident complications. Karri Viveros MD /[id number]
--- NOTE | 2020-07-29 13:24 | OR ---
DATE OF PROCEDURE: 06/12/2020 SURGEON: Karri Viveros MD PREOPERATIVE DIAGNOSES: Septic shock secondary to acute cholecystitis. POSTOPERATIVE DIAGNOSES: 1. Septic shock with indications for central venous access. 2. Acute cholecystitis with pericholecystic abscess. 3. Peritoneal nodule overlying the surface of the transverse colon and omentum. OPERATIVE PROCEDURES: 1. Insertion of left subclavian vein triple-lumen catheter (03766). 2. Diagnostic laparoscopy with: a. Cholecystectomy (18835). b. Drainage of pericholecystic abscess (72323). c. Excision of peritoneal nodule overlying the surface of transverse colon and omentum (70146). ANESTHESIA: General. UNDERWEAR FINISHER: Luciana Gaitan PA-C INDICATIONS FOR PROCEDURE: A 69-year-old male status post recent stem cell transplant for multiple myeloma, who presented to the [facility] overnight with a picture of acute cholecystitis. The patient is status post previous gastric bypass and was transferred here for a cholecystectomy. Upon arrival, he was noted to be in septic shock with blood pressures in the 50s to 60s systolic range, heart rate in the 140s. He was subsequently taken to the intensive care unit where resuscitative efforts including fluid and norepinephrine were initiated. At this point, he has become hemodynamically reasonably stable. The picture is that of an acute cholecystitis with associated septic shock. Plan is to proceed with a laparoscopic or if necessary open cholecystectomy. The patient will also have a central line inserted to facilitate perioperative care. Potential risks of the procedure including bleeding, infection, injury to the common bile duct or other adjacent viscera, problems with stone migrating into the common bile duct requiring additional procedures for removal, and complications related to central line insertion such as pneumohemothorax or vascular injury were gone over, and the patient wishes to proceed. DETAILS OF PROCEDURE: The patient was taken to the operating room, placed in a supine position. After general endotracheal anesthesia was induced, the upper chest and neck areas were prepped and draped. Left subclavian vein was cannulated. Guidewire was passed. Over the guidewire, a triple-lumen catheter was positioned. Good in and outflow was noted through the catheter. Ports were flushed with heparinized saline and sutured to skin with some 3-0 Vicryl stitch. Subsequent chest x-ray showed no evident complications and good catheter position. At this point, the abdomen was prepped and draped. Ann catheter had previously been inserted. A transverse infraumbilical incision was made, and peritoneal cavity entered under direct vision with an Optiview trocar, inflated to 15 mmHg pressure with CO2. A 12 mm epigastric trocar was then placed along with a 5 mm right subcostal trocar, and the upper abdomen examined. As one lifted the gallbladder upward, some thin purulent material was present with associated peritonitis behind and surrounding the gallbladder. This was evacuated and cultures were obtained. The patient was noted to have a whitish peritoneal nodule measuring around 1 cm located over the transverse colon extending onto adjacent omentum. This was excised for histologic evaluation. The gallbladder was then retracted anteriorly and laterally, and the dissection began on the gallbladder neck with Harmonic Scalpel and continued around the gallbladder neck-cystic duct junction. Once the gallbladder neck and cystic duct junction was well identified as was the cystic artery, the gallbladder neck and cystic duct junction was initially divided with the JAYDEN staple load as was the cystic duct. Some additional small branches of vessels were taken with hemoclips as the gallbladder was dissected off the gallbladder bed using Harmonic scalpel and delivered through the epigastric trocar site. Additional cultures were then obtained from within the gallbladder. Area of dissection was inspected. No bleeding or bile leaks were seen. A Devan-Jennings drain was taken out through the right lateral trocar site and positioned into the area of the gallbladder bed and pericholecystic abscess, and the trocars were sequentially removed. Peritoneal cavity was deflated. Fascia at the 12 mm site was closed with 0 Vicryl stitch and skin with 4-0 Vicryl skin stitch. Dressing was applied. The patient was taken to the recovery room in satisfactory condition. Physician household assistant, Luciana Gaitan PA-C, played an essential role in assisting in this case, helping to position the patient, retract structures as needed, as well as suturing and cutting sutures when indicated. Her presence improved patient safety and decreased the operative time. Karri Viveros MD /[id number]
== END 2020-06-21 14:38 | disposition home health service (06) | DRG 853 ==
LOC: JP.MS 03:25 → JP.ICU 06:38 → JP.MS 06-16 14:26
PROVIDERS: ADMIT Surgery; ATTEND Surgery
PROC: 3E033XZ Introduction of Vasopressor into Peripheral Vein, Percutaneous Approach (ICD-10-PCS; 2020-06-12)
PROC: 0FT44ZZ Resection of Gallbladder, Percutaneous Endoscopic Approach (ICD-10-PCS; 2020-06-12)
PROC: 0W9G4ZZ Drainage of Peritoneal Cavity, Percutaneous Endoscopic Approach (ICD-10-PCS; 2020-06-12)
PROC: 0DBW4ZZ Excision of Peritoneum, Percutaneous Endoscopic Approach (ICD-10-PCS; 2020-06-12)
PROC: 05H633Z Insertion of Infusion Device into Left Subclavian Vein, Percutaneous Approach (ICD-10-PCS; 2020-06-12)
PROC: 30233N1 Transfusion of Nonautologous Red Blood Cells into Peripheral Vein, Percutaneous Approach (ICD-10-PCS; principal; 2020-06-17)
PROC: 093K7ZZ Control Bleeding in Nasal Mucosa and Soft Tissue, Via Natural or Artificial Opening (ICD-10-PCS; 2020-06-17)
PROC: 0DBU0ZZ Excision of Omentum, Open Approach (ICD-10-PCS; 2020-06-20)
PROC: 0WQF0ZZ Repair Abdominal Wall, Open Approach (ICD-10-PCS; 2020-06-20)
DX: A41.9 Sepsis, unspecified organism (principal); K65.1 Peritoneal abscess; R65.21 Severe sepsis with septic shock; K81.0 Acute cholecystitis; C90.00 Multiple myeloma not having achieved remission; Z94.81 Bone marrow transplant status; K91.2 Postsurgical malabsorption, not elsewhere classified; C79.51 Secondary malignant neoplasm of bone; I13.0 Hypertensive heart and chronic kidney disease with heart failure and stage 1 through stage 4 chronic kidney disease, or unspecified chronic kidney disease; I50.22 Chronic systolic (congestive) heart failure; E46 Unspecified protein-calorie malnutrition; N17.9 Acute kidney failure, unspecified; N18.4 Chronic kidney disease, stage 4 (severe); B95.2 Enterococcus as the cause of diseases classified elsewhere; B96.5 Pseudomonas (aeruginosa) (mallei) (pseudomallei) as the cause of diseases classified elsewhere; E53.8 Deficiency of other specified B group vitamins; K66.0 Peritoneal adhesions (postprocedural) (postinfection); G47.33 Obstructive sleep apnea (adult) (pediatric); E11.22 Type 2 diabetes mellitus with diabetic chronic kidney disease; F32.9 Major depressive disorder, single episode, unspecified; N18.30 Chronic kidney disease, stage 3 unspecified; E86.0 Dehydration; E66.01 Morbid (severe) obesity due to excess calories; Z79.899 Other long term (current) drug therapy; D63.1 Anemia in chronic kidney disease; E83.42 Hypomagnesemia; K66.9 Disorder of peritoneum, unspecified; R04.0 Epistaxis; E87.5 Hyperkalemia; Z87.442 Personal history of urinary calculi; Z88.1 Allergy status to other antibiotic agents; Z87.891 Personal history of nicotine dependence; Z98.84 Bariatric surgery status; Z79.82 Long term (current) use of aspirin; H54.7 Unspecified visual loss; E78.00 Pure hypercholesterolemia, unspecified
CPT/HCPCS: 30901; 36415; 36430; 51702; 51798; 71045; 71045-26; 80048; 80053; 81001; 82330; 82436; 82728; 82803; 83605; 83615; 83735; 83880; 83935; 84100; 84133; 84300; 85025; 85027; 86850; 86900; 86901; 86920; 86922; 87070; 87075; 87077; 87086; 87186; 87205; 87493; 88304; 88305; 93010; 97110-GP; 97116-GP; 97161-GP; 97530-GP; 99222; 99231; 99232; A9270-GY; J0171; J0330; J0610; J0744; J1100; J1170; J1200; J1642; J1644; J1940; J2020; J2185; J2250; J2405; J2543; J2597; J2704; J2710; J2795; J3010; J3410; J3411; J3475; J3490; J7040; J7060; J7120; J7121; P9016; P9047

== ENCOUNTER 2020-10-17 06:56 | Day surgery (SDC) | payer MEDICARE ==
[2020-10-17] MEDS ORDERED: Lactated Ringers 1,000 ML IV ONE (07:45)
[2020-10-17] MEDS ORDERED: Cyanocobalamin (Vitamin B12) 1,000 MCG/ML SDV IM ONE (07:45)
[2020-10-17] MEDS ORDERED: fentaNYL 100 MCG/2 ML SDV ONE (08:08)
[2020-10-17] MEDS ORDERED: Propofol 200 MG/20 ML SDV ONE (08:08)
[2020-10-17] MEDS ORDERED: Pantoprazole 40 MG Vial IVPUSH ONE (08:38)
[2020-10-17] MEDS ORDERED: MVI, Adult with Vitamin K 10 ML, Thiamine 200 MG, Zinc/Copper/Manganese/Selenium 1 ML i... IV ONE ×4 (08:45)
--- NOTE | 2020-10-28 12:24 | OR ---
DATE OF PROCEDURE: 10/17/2020 SURGEON: Karri Viveros MD PREOPERATIVE DIAGNOSIS: Dysphagia referable to area of gastric pouch and gastrojejunostomy. POSTOPERATIVE DIAGNOSIS: Dysphagia associated with: 1. Small marginal ulcer covered with fibrinous exudate at gastrojejunostomy. 2. No significant stricturing at the EG junction or gastrojejunostomy. OPERATIVE PROCEDURE: Upper gastrointestinal endoscopy with: 1. Dilation of esophagus and gastrojejunostomy (83707). 2. Biopsies of gastric pouch for CLOtest (58662). ANESTHESIA: IV sedation. INDICATIONS FOR PROCEDURE: This is a 70-year-old status post Prashanth-en-Y gastric bypass. He currently is in remission with multiple myeloma, but is having some problems with dysphagia referable to distal esophagus. Presently is on Protonix 40 mg a day along with Megace to help stimulate appetite. The daughter who was present is very skeptical in terms of his compliance with the medical management, i.e. probably not taking much in the way of his prescribed medications. Plan is to proceed with upper GI endoscopy with biopsies and/or dilation as indicated. Potential risks of the procedure including bleeding and perforation were discussed, and the patient wishes to proceed. DETAILS OF PROCEDURE: The patient was taken to the operating room, placed in a left lateral decubitus position. IV sedation was administered after which the upper GI endoscope was passed orally through the length of the esophagus, across the esophagogastric junction and gastrojejunostomy, roughly 20 cm into the Prashanth limb. The positive findings included a small marginal ulcer covered with fibrinous exudate and the jejunum was flushed with the gastrojejunostomy. There was no negative stricturing present at either the esophagogastric junction or gastrojejunostomy. No blood or bleeding was seen. At this point, biopsies were obtained from the gastric pouch, sent for CLOtest for H. pylori. Following this, to see if there is anything dilatable, a Bard gastrointestinal balloon catheter was centered across the distal esophagus and the gastrojejunostomy inflated to 54-Maori size. This resulted in no significant dilation. The scope was then withdrawn and the procedure then concluded. At this point, we will have the patient Protonix 40 mg b.i.d. and instructed the patient to take his Megace b.i.d. per the prescription which may help with his oral intake. Otherwise, he will be following up with Luciana Norby in [facility] in roughly 12 days. Karri Viveros MD /[id number]
== END 2020-10-17 10:36 | disposition home or self-care (01) ==
LOC: JP.SDS 06:56
PROVIDERS: ATTEND Surgery
DX: R13.10 Dysphagia, unspecified (principal); K28.9 Gastrojejunal ulcer, unspecified as acute or chronic, without hemorrhage or perforation; F17.200 Nicotine dependence, unspecified, uncomplicated; G47.33 Obstructive sleep apnea (adult) (pediatric); I12.9 Hypertensive chronic kidney disease with stage 1 through stage 4 chronic kidney disease, or unspecified chronic kidney disease; E11.22 Type 2 diabetes mellitus with diabetic chronic kidney disease; N18.30 Chronic kidney disease, stage 3 unspecified; E66.9 Obesity, unspecified; Z88.1 Allergy status to other antibiotic agents; Z68.21 Body mass index [BMI] 21.0-21.9, adult
CPT/HCPCS: 36415; 43239; 43245; 80053; 85027; 87081; C9113; J2704; J3010; J3411; J3420; J7120